=== PATIENT | male | born 1955 | race African-American/Black ===

== ENCOUNTER 2018-01-26 15:45 | Emergency (ER) | END 2018-01-26 21:25 | disposition home or self-care (01) ==

== ENCOUNTER 2018-06-17 06:51 | Emergency (ER) | payer OTHER ==
[~2018-06-17] VITALS: Ht 177.8 cm; Wt 95.0 kg
[~2018-06-17 06:51] MED LIST: AMLO-147 PO; ASPI-817 PO; ATOR40TA68 PO; BRIM10DR10 BOTH EYES; CYCL10TA7 PO; DIPH25CA6 PO; DOCU100C59 PO; FAMO20TA18 PO; GLYB5TAB3 PO; ISOS30TA67 PO; LATA2.5D2 BOTH EYES; METO-448 PO; MTF1000T PO; TIMO5DRO30 BOTH EYES; TML25OP5 BOTH EYES
[2018-06-17 06:55] VITALS: Ht 177.8 cm; Wt 95.0 kg
[2018-06-17] MEDS ORDERED: SOD CHLORIDE 0.9% 1,000 ML IV STA (06:58)
[2018-06-17] MEDS ORDERED: DEXTROSE 50% 50 ML SYRINGE IV STA (06:58)
--- NOTE | 2018-06-17 07:07 | ERD ---
ER Documentation Chief Complaint Chief Complaint BIB RA FOR EVAL OF SYNCOPAL EPISODE AT HOME, C/O BACK PAIN. PT A&OX4 HPI 63-year-old man had a hypoglycemic episode at home and fainted while walking to the bathroom he states he struck the back of his head although there was no bleeding or skin breakdown. He denies paresis or paresthesias, no chest pain or shortness of breath. Patient has a long history of chronic back pain and opioid dependence and is requesting analgesics. His blood sugar was low at the field but mental status was near baseline and he was transported here without further complications. Patient denies chest pain or shortness of breath, no abdominal pain, no headache or blurry vision. ROS All systems reviewed and are negative except as per history of present illness. Medications Home Meds Reported Medications Trazodone Hcl* (Trazodone Hcl*) 100 Mg Tablet, 100 MG PO QHS, #30 TAB 06/17/18 Docusate Sodium (Col-Rite) 100 Mg Capsule, 100 MG PO BID, CAP 01/26/18 Diphenhydramine Hcl* (Diphenhydramine Hcl*) 25 Mg Capsule, 50 MG PO QHS PRN for ITCHING, CAP 01/26/18 Famotidine* (Famotidine*) 20 Mg Tablet, 40 MG PO QHS, #30 TAB 01/26/18 Cyclobenzaprine Hcl* (Cyclobenzaprine Hcl*) 10 Mg Tablet, 10 MG PO Q8, #60 TAB 01/26/18 Amlodipine Besylate* (Amlodipine Besylate*) 10 Mg Tablet, 10 MG PO DAILY, #30 TAB 01/26/18 Atorvastatin* (Atorvastatin*) 40 Mg Tablet, 40 MG PO QHS, #30 TAB 01/26/18 Metformin* (Glucophage*) 1,000 Mg Tablet, 1000 MG PO WITH BREAKFAST DINNE, #60 TAB 01/26/18 Metoprolol Tartrate* (Lopressor*) 25 Mg Tab, 25 MG PO Q12H, #60 TAB 01/26/18 Glyburide* (Glyburide*) 5 Mg Tablet, 5 MG PO WITH BREAKFAST DINNE, #60 TAB 01/26/18 Isosorbide Mononitrate* (Isosorbide Mononitrate*) 30 Mg Tab.er.24h, 30 MG PO DAILY, TAB 01/26/18 Aspirin* (Aspirin* EC) 81 Mg Tablet.dr, 81 MG PO DAILY, TAB 01/26/18 Timolol Maleate* (Timoptic*) 0.5%-5ml Opht, 1 DROP BOTH EYES BID, #1 EA 01/26/18 Brimonidine Tartrate* (Brimonidine Tartrate*) 0.15%-10ML Drop Opht, 1 DROP BOTH EYES BID, #1 EA 01/26/18 Latanoprost (Latanoprost) 2.5 Ml Drops, 1 DROP BOTH EYES QHS, #1 BOTTLE 01/26/18 Discontinued Reported Medications Timolol Maleate* (Timoptic*) 0.25%-5ml Opht, 1 DROP BOTH EYES BID, #1 EA 01/26/18 Allergies Allergies: Coded Allergies: No Known Allergy (Unverified , 06/17/18) PMhx/Soc Diabetes mellitus, hypertension, hepatitis C, retinopathy, chronic back pain Hx Cardiac Disorders: Yes (HTN) Hx Miscellaneous Medical Probl: Yes (DM, CHRONIC PAIN, BACK INJURY, GLAUCOMA, W/C BOUND) Hx Alcohol Use: Yes Hx Substance Use: Yes (marijuana) Hx Tobacco Use: No FmHx Family History: diabetes Physical Exam Vitals Vital Signs Date Temp Pulse Resp B/P (MAP) Pulse Ox O2 O2 Flow FiO2 Time Delivery Rate 06/17/18 88 18 133/78 98 Room Air 09:43 (96) 06/17/18 96.5 95 17 135/70 99 06:55 (91) Physical Exam GENERAL: Well-developed, well-nourished, well-hydrated, in no apparent distress, looks nontoxic in appearance HEENT: Moist mucous membranes, pink conjunctiva, no cervical spine tenderness or step-off deformities, no goiter, no jaundice or icterus, extraocular movements intact without pain. No submandibular induration, and no pharyngeal erythema NEURO: Alert and oriented 3, cranial nerves II through XII intact bilaterally, pupils equal round reactive to light, no focal deficits or facial asymmetry, sensation intact distally Strength 5/5 in upper and lower extremities bilaterally CARDIAC: Regular rate and rhythm, no murmurs rubs or gallops LUNGS: Clear bilaterally no wheezing crackles or stridor ABDOMEN: Soft nontender, no guarding, no rigidity, no rebound, no psoas sign no obturator sign. Normoactive bowel sounds SKIN: Warm and dry to touch, no abrasions, contusions, or hematomas, no lacerations, no ecchymosis, no target lesions, and without ulcers EXTREMITIES: No clubbing cyanosis or edema, calves are bilaterally symmetrical, no Homans sign, no popliteal cord sign. Distal pulses equal and bilateral PSYCH: Normal affect without agitation or irritability Result Diagram: 06/17/18 0746 06/17/18 0746 Results 24 hrs Laboratory Tests Test 06/17/18 07:03 06/17/18 07:16 06/17/18 07:33 06/17/18 07:46 Bedside Glucose 41 mg/dL 40 mg/dL 155 mg/dL White Blood Count 6.0 10^3/ul Red Blood Count 4.86 10^6/ul Hemoglobin 13.5 g/dl Hematocrit 42.3 % Mean Corpuscular 87.0 fl Volume Mean Corpuscular 27.8 pg Hemoglobin Mean Corpuscular 31.9 g/dl Hemoglobin Concent Red Cell 18.1 % Distribution Width Platelet Count 228 10^3/UL Mean Platelet 10.1 fl Volume Immature 0.500 % Granulocytes % Neutrophils % 62.7 % Lymphocytes % 18.7 % Monocytes % 17.1 % Eosinophils % 0.7 % Basophils % 0.3 % Nucleated Red Blood 0.0 /100WBC Cells % Immature 0.030 10^3/ul Granulocytes # Neutrophils # 3.8 10^3/ul Lymphocytes # 1.1 10^3/ul Monocytes # 1.0 10^3/ul Eosinophils # 0.0 10^3/ul Basophils # 0.0 10^3/ul Nucleated Red Blood 0.0 10^3/ul Cells # Sodium Level 141 mmol/L Potassium Level 5.0 mmol/L Chloride Level 109 mmol/L Carbon Dioxide 20 mmol/L Level Anion Gap 12 Blood Urea Nitrogen 33 mg/dl Creatinine 1.28 mg/dl Est Glomerular > 60 mL/min Filtrat Rate mL/min Glucose Level 191 mg/dl Calcium Level 10.2 mg/dl Total Bilirubin 0.0 mg/dl Direct Bilirubin 0.00 mg/dl Indirect Bilirubin 0.0 mg/dl Aspartate Amino 72 IU/L Transf (AST/SGOT) Alanine 67 IU/L Aminotransferase (A LT/SGPT) Alkaline 115 IU/L Phosphatase Troponin I < 0.012 ng/ml Total Protein 8.1 g/dl Albumin 4.4 g/dl Globulin 3.70 g/dl Albumin/Globulin 1.18 Ratio Lipase 319 U/L Current Medications Medications Dose Sig/Nicole Start Time Status Last (Trade) Ordered Route PRN Stop Time Admin Dose Reason Admin Sodium 1,000 ml @ Q1H STAT 06/17/18 DC 06/17/18 Chloride 1,000 mls/hr IV 06:58 07:21 06/17/18 07:57 Dextrose 50 ml ONCE STAT 06/17/18 DC 06/17/18 (D50w IV 06:58 07:20 Syringe) 06/17/18 07:05 Oxycodone/ 1 tab ONCE ONCE 06/17/18 DC 06/17/18 Acetaminophen PO 09:00 08:55 (Percocet 06/17/18 09:01 (5/ 325)) Ibuprofen 600 mg ONCE ONCE 06/17/18 06/17/18 (Motrin) PO 10:30 10:06 06/17/18 10:31 Procedures/MDM IV line was established patient was placed on potline monitor rhythm strip revealed a sinus rhythm at about 80 bpm with upright P and T waves. Patient was afebrile One AP view of the chest performed, read by me reveals no acute infiltrates, normal mediastinum, sharp costophrenic and cardiac borders, no air under the diaphragm. Otherwise unremarkable chest x-ray. EKG performed, read by me revealed a normal sinus rhythm at 80 bpm, normal axis, narrow QRS complex, no concerning ST elevations or depressions noted, T wave inversions in [address] scan of the brain was performed is negative for bleed mass or shift, please refer to radiologist dictation for full report Patient's blood sugar was about 40, I administered 500 mL normal saline IV, dextrose 25 g IV, and a breakfast tray. CBC was normal, electrolytes revealed dehydration with a BUN/creatinine of 33/1.3, liver function tests normal, troponin negative. Blood sugar was initially low although that was treated with IV dextrose and a meal. Patient felt much better and was rehydrated here in the ER. For complaints of back pain administered Percocet 1 tablet p.o. Differential diagnoses considered, included but not limited to acute coronary syndrome, pulmonary embolism, aortic dissection, abdominal aortic aneurysm, sepsis, stroke, meningitis, encephalitis, pneumonia, appendicitis, chol ecystitis, bowel obstruction, pyelonephritis, nephrolithiasis, cystitis, as well as metabolic, hematologic, and electrolyte abnormalities. As well as abscess, cellulitis, fractures, and dislocations. Patient feels much better at this time, and vital signs are normal, symptoms have improved. I did give strict instructions to return to the ED if symptoms continue or worsen, patient will otherwise follow-up with primary care physician. Patient understood instructions and agreed to plan. Disclaimer: Inadvertent spelling and grammatical errors are likely due to EHR/dictation software use and do not reflect on the overall quality of patient care. Also, please note that the electronic time recorded on this note does not necessarily reflect the actual time of the patient encounter. Departure Diagnosis: Primary Impression: Syncope Syncope type: unspecified Qualified Codes: R55 - Syncope and collapse Additional Impressions: Acute metabolic encephalopathy due to hypoglycemia Back pain Back pain location: low back pain Chronicity: acute Back pain laterality: bilateral Sciatica presence: without sciatica Qualified Codes: M54.5 - Low back pain Dehydration Condition: Good AVELINO PRITCHETT MD Jun 17, 2018 07:07
[2018-06-17] MEDS ORDERED: TRA100 PO (08:35)
[2018-06-17] MEDS ORDERED: OXYCODONE/ACETAMINOPHEN (5/325) TAB PO ONE (09:00)
[2018-06-17 09:43] VITALS: BP 133/78; PULSE 88; RESP 18
[2018-06-17] MEDS ORDERED: IBUPROFEN 600 MG TAB PO ONE (10:30)
== END 2018-06-17 11:10 | disposition home or self-care (01) ==
LOC: E/R 06:51
DX: G93.41 Metabolic encephalopathy (principal); M54.5 Low back pain; E86.0 Dehydration; E11.649 Type 2 diabetes mellitus with hypoglycemia without coma; I10 Essential (primary) hypertension; Z79.82 Long term (current) use of aspirin; Z79.84 Long term (current) use of oral hypoglycemic drugs
CPT/HCPCS: 36415; 70450; 71045; 80053; 82962; 83690; 84484; 85025; 93005; 96374; J7030; Z7502; Z7610

== ENCOUNTER 2018-11-04 15:12 | Inpatient (IN) | payer OTHER ==
[~2018-11-04] VITALS: Ht 170.2 cm; Wt 86.7 kg
[~2018-11-04 15:12] MED LIST changes: +DIPH25CA42 PO; +DOCU-144 PO; +HYDR-3980 PO; +MED4DP PO; +METF-849 PO; +METF100010 PO; +TIMO15DR15 BOTH EYES; -TML25OP5 BOTH EYES; +TRA100 PO; +TRAZ-149 PO
[2018-11-04] MEDS ORDERED: SOD CHLORIDE 0.9% 1,000 ML IV ONE (15:30)
--- NOTE | 2018-11-04 17:36 | ERD ---
ER Documentation Chief Complaint Chief Complaint shaking and twitching at home, alert and oriented x 4 HPI 63-year-old male presents by paramedics after passing out. Patient states he was in his usual state of health until just prior to arrival which time he had a syncopal episode. He was feeling "shaky" and then passed out. He had a brief loss of consciousness. It is unclear if he had seizure activity as nobody was around to witness it. He reported no chest pain or palpitations prior to the event. He reported no headache or focal weakness prior to the event. I have reviewed the [facility] inspector pre-hospital care. Pre-hospital vital signs were reviewed. Pre-hospital diagnostic tests were reviewed. Upon arrival, patient is asymptomatic. He states that he was just recently in a convalescent facility/long-term care facility for IV antibiotics for a back infection all of which she just finished. He reports no new back pain or any other complaints regarding back or other acute neurologic complaints. ROS All systems reviewed and are negative except as per history of present illness. Medications Home Meds Reported Medications Cyclobenzaprine Hcl* (Cyclobenzaprine Hcl*) 10 Mg Tablet, 10 MG PO Q8, #60 TAB 11/04/18 Diphenhydramine Hcl (Banophen) 25 Mg Capsule, 25 MG PO DAILY, CAP 11/04/18 Atorvastatin* (Atorvastatin*) 40 Mg Tablet, 40 MG PO QHS, #30 TAB 11/04/18 Aspirin* (Aspirin* EC) 81 Mg Tablet.dr, 81 MG PO DAILY, TAB 11/04/18 Hydrocodone/Acetaminophen ([place] 10-325 Tablet) 1 Each Tablet, 1 EACH PO Q8H PRN for NEEDED, TAB 11/04/18 Brimonidine Tartrate* (Brimonidine Tartrate*) 0.15%-10ML Drop Opht, 1 DROP BOTH EYES Q8, #1 EA 11/04/18 Trazodone Hcl* (Desyrel*) 50 Mg Tab, 50 MG PO BID, #60 TAB 11/04/18 Metformin Hcl* (Metformin Hcl*) 1,000 Mg Tablet, 1000 MG PO WITH BREAKFAST DINNE, #60 TAB 11/04/18 Latanoprost (Latanoprost) 2.5 Ml Drops, 1 DROP BOTH EYES QHS, #1 BOTTLE 11/04/18 Isosorbide Mononitrate* (Isosorbide Mononitrate*) 30 Mg Tab.er.24h, 30 MG PO DAILY, TAB 11/04/18 Amlodipine Besylate* (Amlodipine Besylate*) 10 Mg Tablet, 10 MG PO DAILY, #30 TAB 11/04/18 Famotidine* (Famotidine*) 20 Mg Tablet, 20 MG PO BID, #60 TAB 11/04/18 Timolol Maleate* (Timolol Maleate* Ophth) 0.25%-15ml Opht, 1 DROP BOTH EYES BID, #1 EA 11/04/18 Docusate Sodium* (Colace*) 100 Mg Capsule, 100 MG PO BID, #60 CAP 11/04/18 Glyburide* (Glyburide*) 5 Mg Tablet, 5 MG PO BID, #60 TAB 11/04/18 Discontinued Reported Medications Trazodone Hcl* (Trazodone Hcl*) 100 Mg Tablet, 100 MG PO QHS, #30 TAB 06/17/18 Docusate Sodium (Col-Rite) 100 Mg Capsule, 100 MG PO BID, CAP 01/26/18 Diphenhydramine Hcl* (Diphenhydramine Hcl*) 25 Mg Capsule, 50 MG PO QHS PRN for ITCHING, CAP 01/26/18 Famotidine* (Famotidine*) 20 Mg Tablet, 40 MG PO QHS, #30 TAB 01/26/18 Cyclobenzaprine Hcl* (Cyclobenzaprine Hcl*) 10 Mg Tablet, 10 MG PO Q8, #60 TAB 01/26/18 Amlodipine Besylate* (Amlodipine Besylate*) 10 Mg Tablet, 10 MG PO DAILY, #30 TAB 01/26/18 Atorvastatin* (Atorvastatin*) 40 Mg Tablet, 40 MG PO QHS, #30 TAB 01/26/18 Metformin* (Glucophage*) 1,000 Mg Tablet, 1000 MG PO WITH BREAKFAST DINNE, #60 TAB 01/26/18 Metoprolol Tartrate* (Lopressor*) 25 Mg Tab, 25 MG PO Q12H, #60 TAB 01/26/18 Glyburide* (Glyburide*) 5 Mg Tablet, 5 MG PO WITH BREAKFAST DINNE, #60 TAB 01/26/18 Isosorbide Mononitrate* (Isosorbide Mononitrate*) 30 Mg Tab.er.24h, 30 MG PO DAILY, TAB 01/26/18 Aspirin* (Aspirin* EC) 81 Mg Tablet.dr, 81 MG PO DAILY, TAB 01/26/18 Timolol Maleate* (Timoptic*) 0.5%-5ml Opht, 1 DROP BOTH EYES BID, #1 EA 01/26/18 Brimonidine Tartrate* (Brimonidine Tartrate*) 0.15%-10ML Drop Opht, 1 DROP BOTH EYES BID, #1 EA 01/26/18 Latanoprost (Latanoprost) 2.5 Ml Drops, 1 DROP BOTH EYES QHS, #1 BOTTLE 01/26/18 Allergies Allergies: Coded Allergies: No Known Allergy (Unverified , 11/04/18) PMhx/Soc History of Surgery: No Anesthesia Reaction: No Hx Neurological Disorder: No Hx Respiratory Disorders: No Hx Cardiac Disorders: Yes (HTN) Hx Psychiatric Problems: No Hx Miscellaneous Medical Probl: Yes (DM, CHRONIC PAIN, BACK INJURY, GLAUCOMA, W/C BOUND, HEP C) Hx Alcohol Use: Yes Hx Substance Use: Yes (marijuana) Hx Tobacco Use: No Smoking Status: Never smoker FmHx Noncontributory for chief complaint Physical Exam Vitals Vital Signs Date Temp Pulse Resp B/P (MAP) Pulse Ox O2 O2 Flow FiO2 Time Delivery Rate 11/04/18 74 18 133/55 93 Room Air 17:05 (81) 11/04/18 98.0 87 24 100/57 96 15:20 (71) Physical Exam GENERAL: The patient is well developed and appropriate for usual state of health in no apparent distress HEENT: Pupils equal, round, and reactive to light. EOMI. There is no scleral icterus. NECK: C-spine is soft and supple, there is no meningismus. There is no cervical lymphadenopathy. LUNGS: Clear to auscultation bilaterally. There are no rales, wheezes or rhonchi. HEART: Regular rate and rhythm, no murmurs, clicks, rubs or gallops. ABDOMEN: Soft, non-tender, non-distended. There are bowel sounds in all four quadrants. No rebound or guarding. EXTREMITIES: There is no peripheral cyanosis or edema. No focal swelling or erythema. NEURO: The patient moves all four extremities with 5/5 strength. Cranial nerves II - XII are intact. Normal gait. Alert and oriented SKIN: There is no apparent rash or petechiae. HEME/LYMPHATIC: There is no evidence of excessive bruising or lymphedema. PSYCHIATRIC: The patient does not appear anxious or depressed. Result Diagram: 11/04/18 1531 11/04/18 1531 Results 24 hrs Laboratory Tests Test 11/04/18 15:31 White Blood Count 8.9 10^3/ul Red Blood Count 4.17 10^6/ul Hemoglobin 11.1 g/dl Hematocrit 35.6 % Mean Corpuscular Volume 85.4 fl Mean Corpuscular Hemoglobin 26.6 pg Mean Corpuscular Hemoglobin Concent 31.2 g/dl Red Cell Distribution Width 14.0 % Platelet Count 267 10^3/UL Mean Platelet Volume 9.6 fl Immature Granulocytes % 0.500 % Neutrophils % 66.7 % Lymphocytes % 17.4 % Monocytes % 12.8 % Eosinophils % 2.4 % Basophils % 0.2 % Nucleated Red Blood Cells % 0.0 /100WBC Immature Granulocytes # 0.040 10^3/ul Neutrophils # 5.9 10^3/ul Lymphocytes # 1.5 10^3/ul Monocytes # 1.1 10^3/ul Eosinophils # 0.2 10^3/ul Basophils # 0.0 10^3/ul Nucleated Red Blood Cells # 0.0 10^3/ul Sodium Level 140 mmol/L Potassium Level 3.3 mmol/L Chloride Level 102 mmol/L Carbon Dioxide Level 23 mmol/L Anion Gap 15 Blood Urea Nitrogen 18 mg/dl Creatinine 1.45 mg/dl Est Glomerular Filtrat Rate mL/min 59 mL/min Glucose Level 123 mg/dl Calcium Level 9.6 mg/dl Troponin I 0.039 ng/ml Current Medications Medications Dose Sig/Nicole Start Time Status Last (Trade) Ordered Route PRN Stop Time Admin Dose Reason Admin Sodium 1,000 ml @ Q1H ONCE 11/04/18 DC 11/04/18 Chloride 1,000 mls/hr IV 15:30 15:41 11/04/18 16:29 Procedures/MDM Patient was taken to a room, seen and evaluated. Comfort measures were initiated. Diagnostic tests were ordered and reviewed. 3 LEAD RHYTHM STRIP: Normal sinus rhythm without ectopy EK lead EKG reviewed by myself: Normal Sinus Rhythm LVH No ST elevation, depression, or T wave inversion, nonspecific ST and T wave changes Impression: Nonspecific abnormal EKG RADIOLOGY: Reviewed with the radiologist CONSULTATION: Hospitalist was notified for admission REEVALUATION: 1730: Diagnostic tests were appreciated. Patient remained hemodynamic is stable and neurologically normal MEDICAL DECISION MAKING: Patient presents after a syncopal episode. Differential diagnosis considered focused on cardiac, neurologic, thromboembolic and other significant concerns for syncope. Diagnostic workup was appreciated. My suspicion is that this likely has more to do with his medications and anything else. However, he has a significant the abnormal EKG with significant risk factors including diabetes. I cannot completely rule out cardiogenic syncope and will therefore admit for observation to monitor his rhythm Departure Diagnosis: Primary Impression: Syncope Condition: KHADRA Coates Nov 04, 2018 17:36
[2018-11-04] MEDS ORDERED: SOD CHLORIDE 0.9% 1,000 ML IV SCH (18:16)
[2018-11-04] MEDS ORDERED: ONDANSETRON 4 MG INJ IV PRN ×2 (18:30)
[2018-11-04] MEDS ORDERED: ACETAMINOPHEN 325 MG TAB PO PRN ×2 (18:30)
[2018-11-04] MEDS ORDERED: NACL 0.9% 3 ML SYG IV SCH (18:30)
[2018-11-04] MEDS ORDERED: POTASSIUM CHLORIDE 20 MEQ POWDER FOR ORAL SOLN PO ONE (18:30)
[2018-11-04] MEDS ORDERED: LORAZEPAM 2 MG INJ IV PRN (18:30)
[2018-11-04] MEDS ORDERED: OXYCODONE/ACETAMINOPHEN (5/325) TAB PO PRN (18:30)
--- NOTE | 2018-11-04 18:57 | HP ---
Date/Time of Note Date/Time of Note DATE: 11/04/18 TIME: 18:57 Assessment/Plan VTE Prophylaxis Pharmacological prophylaxis: other Lines/Catheters IV Catheter Type (from Nrsg): Saline Lock Assessment/Plan Hospital Course Patient is a -[place] male with a past medical history significant for recent osteomyelitis of the back status post 6 weeks of IV antibiotics, chronic feet pain from a fall couple years back, chronic back pain from the same fall, hypertension, glaucoma, hepatitis C that is untreated, dyslipidemia, diabetes mellitus and questionable history of TIA versus CVA who presents to [facility] after his neighbor at his assisted living facility found him questionably shaking and passed out. According to the patient the last thing he remembers was feeling well in his wheelchair which he is bound to due to his chronic foot pain, and about 2 go out and get something to eat, next thing he remembers his friend his shaking him awake. Per EMS the friend stated that patient was passed out and also shaking. However this story is not necessarily 100% reliable. Currently patient feels well and has no other comp laints. Patient denies chest pain, shortness of breath, headache, nausea, vomiting, abdominal pain, bowel or bladder dysfunction, leg pain. Patient does state he has chronic back pain as well as chronic foot pain. Of note patient states that he urinates at the time that he had a syncopal episode was a few months ago when he was sent to the ER after being found to be hypoglycemic. Objective Physical exam General: Patient is laying in bed and answers questions appropriately Mentation: Patient is alert and oriented 4, Head: Normocephalic atraumatic Eyes: EOMI, pupils reactive to light Neck: Supple, nontender, midline Respiratory: Clear to auscultation bilaterally Cardiovascular: regular rate, no obvious murmurs Gastrointestinal: non-tender to palpation, bowel sounds heard. Neurological: Moves all extremities spontaneously Skin: No new skin lesions Musculoskeletal: Pain on palpation of feet bilaterally Assessment and plan Syncope -Unknown cause, patient had a one-time occurrence of syncope in the past due to hypoglycemia, patient is on sulfonylurea however his glucose is within normal limits here. -Patient may be volume depleted, IV hydration -Urine drug screen and UA pending -Neurology consulted, -MRI, echo, carotid ultrasound ordered -CT noted -Orthostatic vitals however will be limited as patient cannot stand Questionable seizure -Patient was passed out and bystander did say that he was shaking however this is questionable if true seizure versus another phenomenon such as convulsive syncope -Neurology consulted -We will start empirically on Keppra, -Ativan as needed Recent lower extremity swelling -Patient has chronic foot pain and stated that recently he had both legs swell up, no history of DVT -Ultrasound venous bilaterally pending Acute kidney injury versus chronic kidney disease -We will hydrate, if continues to be elevated will consult nephrology in the a.m. Recent history of osteomyelitis -Patient states that he had a bone infection in the back and recently finished 6 weeks of IV antibiotics at a senior care, he was discharged 2 days ago Hypertension -Continue home meds Questionable coronary artery disease -Continue baby aspirin as well as other home medications Glaucoma -Continue home drops Active hepatitis C -Untreated, will get hepatitis levels Chronic debility -Patient had a fall from a ladder a couple years ago which is the cause of his chronic back pain as well as chronic foot pain -Wheelchair-bound Anemia -Mild, monitor for now Disposition -We will perform syncope work-up and seizure work-up per neurology recommendations -It appears patient will need placement as he presented to the ER just 2 days after he was discharged from half-way facility Result Diagram: 11/04/18 1531 11/04/18 1531 Results 24hrs Laboratory Tests Test 11/04/18 15:31 White Blood Count 8.9 # Red Blood Count 4.17 L Hemoglobin 11.1 L Hematocrit 35.6 L Mean Corpuscular Volume 85.4 Mean Corpuscular Hemoglobin 26.6 L Mean Corpuscular Hemoglobin Concent 31.2 L Red Cell Distribution Width 14.0 # Platelet Count 267 Mean Platelet Volume 9.6 Immature Granulocytes % 0.500 H Neutrophils % 66.7 Lymphocytes % 17.4 Monocytes % 12.8 H Eosinophils % 2.4 Basophils % 0.2 Nucleated Red Blood Cells % 0.0 Immature Granulocytes # 0.040 H Neutrophils # 5.9 Lymphocytes # 1.5 Monocytes # 1.1 H Eosinophils # 0.2 Basophils # 0.0 Nucleated Red Blood Cells # 0.0 Sodium Level 140 Potassium Level 3.3 L Chloride Level 102 Carbon Dioxide Level 23 Anion Gap 15 H Blood Urea Nitrogen 18 Creatinine 1.45 H Est Glomerular Filtrat Rate mL/min 59 L Glucose Level 123 Calcium Level 9.6 Troponin I 0.039 HPI/ROS Admit Date/Time Admit Date/Time PMH/Family/Social Past Medical History Medications Current Medications Ondansetron HCl (Zofran Inj) 4 mg ER BRIDGE PRN IV NAUSEA/VOMITING; Start 11/04/18 at 18:30; Stop 11/05/18 at 18:29 Acetaminophen (Tylenol Tab) 650 mg ER BRIDGE PRN PO .MILD PAIN 1-3 OR TEMP; Start 11/04/18 at 18:30; Stop 11/05/18 at 18:29 Amlodipine Besylate (Norvasc) 10 mg DAILY PO ; Start 11/05/18 at 09:00; Status UNV Aspirin (Halfprin) 81 mg DAILY PO ; Start 11/05/18 at 09:00 Atorvastatin Calcium (Lipitor) 40 mg QHS PO ; Start 11/04/18 at 21:00 Brimonidine Tartrate (Alphagan P 0.15%) 1 drop Q8 BOTH EYES ; Start 11/04/18 at 22:00; Status UNV Cyclobenzaprine HCl (Flexeril) 10 mg Q8 PO ; Start 11/04/18 at 22:00 Docusate Sodium (Colace) 100 mg BID PO ; Start 11/04/18 at 21:00 Famotidine (Pepcid) 20 mg BID PO ; Start 11/04/18 at 21:00 Isosorbide Mononitrate (Imdur) 30 mg DAILY PO ; Start 11/05/18 at 09:00; Status UNV Latanoprost (Xalatan) 1 drop QHS BOTH EYES ; Start 11/04/18 at 21:00; Status UNV Timolol Maleate (Timoptic 0.25%) 1 drop BID BOTH EYES ; Start 11/04/18 at 21:00; Status UNV Trazodone HCl (Desyrel) 50 mg BID PO ; Start 11/04/18 at 21:00; Status UNV Sodium Chloride 1,000 ml @ 50 mls/hr Q20H IV ; Start 11/04/18 at 18:16; Status UNV IV Flush (NS 3 ml) 3 ml PER PROTOCOL IV ; Start 11/04/18 at 18:30; Status UNV Ondansetron HCl (Zofran Inj) 4 mg Q6H PRN IV NAUSEA/VOMITING; Start 11/04/18 at 18:30; Status UNV Acetaminophen (Tylenol Tab) 650 mg Q6H PRN PO .PAIN 1-3 OR TEMP; Start 11/04/18 at 18:30 Lorazepam (Ativan) 2 mg Q10MIN PRN IV seizures; Start 11/04/18 at 18:30; Status UNV Miscellaneous Information (* Miscellaneous Pharmacy Order) Discontinue current oral sulfonylur... ONCE ONCE XX ; Start 11/04/18 at 19:00; Stop 11/04/18 at 19:01; Status UNV Diagnostic Test (Pha) (Accu-Chek) 1 ea 02 XX ; Start 11/05/18 at 02:00; Status UNV Miscellaneous Information (* Miscellaneous Pharmacy Order) HYPOGLYCEMIA PROTOCOL w... ONCE ONCE XX ; Start 11/04/18 at 19:00; Stop 11/04/18 at 19:01; Status UNV Insulin Aspart (Novolog Insulin Pen) NOVOLOG *MILD* ALGORITHM WITH MEALS BEDTIME SC ; Start 11/04/18 at 21:00; Status UNV Miscellaneous Information (* Miscellaneous Pharmacy Order) Discontinue all previ... ONCE ONCE XX ; Start 11/04/18 at 19:00; Stop 11/04/18 at 19:01; Status UNV Acetaminophen/ Hydrocodone Bitart ([place] (10/325)) 1 tab Q4H PRN PO MODERATE PAIN LEVEL 4-6; Start 11/04/18 at 19:00; Status UNV Coded Allergies: No Known Allergy (Unverified , 11/04/18) Social History Smoking Status: Never smoker Exam/Review of Systems Vital Signs Vitals Vital Signs Date Temp Pulse Resp B/P (MAP) Pulse Ox O2 O2 Flow FiO2 Time Delivery Rate 11/04/18 74 18 133/55 93 Room Air 17:05 (81) 11/04/18 98.0 15:20 AVELINO HINTON Nov 04, 2018 18:57
[2018-11-04] MEDS ORDERED: GLUCOSE GEL 15 GRAM TUBE PO PRN ×2 (19:00)
[2018-11-04] MEDS ORDERED: GLUCOSE GEL 15 GRAM TUBE BUCCAL PRN (19:00)
[2018-11-04] MEDS ORDERED: DEXTROSE 50% 50 ML SYRINGE IV PRN ×2 (19:00)
[2018-11-04] MEDS ORDERED: GLUCAGON 1 MG INJ IM PRN (19:00)
[2018-11-04] MEDS: HYDROCODONE/APAP (10/325) TAB PO PRN (19:07)
[2018-11-04] MEDS: INSULIN ASPART [NOVOLOG] 3 ML PEN SC SCH (21:00)
[2018-11-04] MEDS: LEVETIRACETAM 500 MG (PMX) 100 ML IVPB SCH (22:39)
[2018-11-04] MEDS: BRIMONIDINE 0.15% 5 ML OPH BOTH EYES SCH (22:40)
[2018-11-04] MEDS: TIMOLOL 0.25% 5 ML OPH BOTH EYES SCH (22:40)
[2018-11-04] MEDS: LATANOPROST 0.005% 2.5 ML OPH BOTH EYES SCH (22:40)
[2018-11-04] MEDS: DOCUSATE SODIUM 100 MG CAP PO SCH (22:44)
[2018-11-04] MEDS: FAMOTIDINE 20 MG TAB PO SCH (22:45)
[2018-11-04] MEDS: CYCLOBENZAPRINE 10 MG TAB PO SCH (22:45)
[2018-11-04] MEDS: ATORVASTATIN 40 MG TAB PO SCH (22:45)
[2018-11-04] MEDS: traZODone 50 MG TAB PO SCH (22:47)
[2018-11-04 23:30] VITALS: Ht 170.2 cm; Wt 86.7 kg
[2018-11-05] VITALS (7 sets, daily range): BP systolic 128–170; BP diastolic 67–81; PULSE 70–92; RESP 18–20
[2018-11-05] MEDS: HYDROCODONE/APAP (10/325) TAB PO PRN ×3 (00:11→21:02)
[2018-11-05] MEDS: AMLODIPINE 10 MG TAB PO SCH ×2 (00:14→08:23)
[2018-11-05] MEDS: ACCU-CHEK XX SCH (02:42)
[2018-11-05] MEDS: BRIMONIDINE 0.15% 5 ML OPH BOTH EYES SCH ×3 (05:08→21:02)
[2018-11-05] MEDS: CYCLOBENZAPRINE 10 MG TAB PO SCH ×3 (05:08→21:01)
[2018-11-05] MEDS: INSULIN ASPART [NOVOLOG] 3 ML PEN SC SCH ×4 (07:46→20:51)
[2018-11-05] MEDS: DOCUSATE SODIUM 100 MG CAP PO SCH ×2 (08:22→20:52)
[2018-11-05] MEDS: ASPIRIN (EC) 81 MG TAB PO SCH (08:22)
[2018-11-05] MEDS: ISOSORBIDE MONONITRATE(SR)30 MG TAB PO SCH (08:22)
[2018-11-05] MEDS: traZODone 50 MG TAB PO SCH ×2 (08:23→20:52)
[2018-11-05] MEDS: FAMOTIDINE 20 MG TAB PO SCH ×2 (08:23→20:52)
[2018-11-05] MEDS: TIMOLOL 0.25% 5 ML OPH BOTH EYES SCH ×2 (08:24→20:52)
[2018-11-05] MEDS ORDERED: AMLODIPINE 10 MG TAB PO SCH (09:00)
[2018-11-05] MEDS: LEVETIRACETAM 500 MG (PMX) 100 ML IVPB SCH (09:44)
--- NOTE | 2018-11-05 10:11 | CONSI ---
Assessment/Plan Assessment/Plan Assessment/Plan (Recall) 63 M c/ multiple comorbidities, who presents for evaluation of LOC w/ ? shaking c/f seizure.. MIKE + on presentation Convulsive syncope is a consideration.. Epilepsy is less likely. MRI brain is reassuringly negative for acute intracranial pathology, or prior cortically based stroke.. P: Await EEG Hold Keppra for now Ativan iv prn prolonged seizure or cluster Add phos level Agree w/ asa/lipitor daily for secondary stroke prevention PT/OT as necessary Other medical management and supportive care per primary Will follow clinically Consultation Date/Type/Reason Admit Date/Time Type of Consult Neurology Reason for Consultation ? seizure Requesting Provider: AVELINO HINTON Date/Time of Note DATE: 11/05/18 TIME: 10:04 Hx of Present Illness Patient is a 63 yo male with a past medical history significant for recent osteomyelitis of the back status post 6 weeks of IV antibiotics, chronic feet pain from a fall couple years back, chronic back pain from the same fall, hypertension, glaucoma, hepatitis C that is untreated, dyslipidemia, diabetes mellitus and questionable history of TIA versus CVA who presents to [facility] after his neighbor at his assisted living facility found him questionably shaking and passed out. According to the patient the last thing he remembers was feeling well in his wheelchair which he is bound to due to his chronic foot pain, and about 2 go out and get something to eat, next thing he remembers his friend his shaking him awake. Per EMS the friend stated that patient was passed out and also shaking. However this story is not necessarily 100% reliable. Currently patient feels well and has no other complaints. Patient denies chest pain, shortness of breath, headache, nausea, vomiting, abdominal pain, bowel or bladder dysfunction, leg pain. Patient does state he has chronic back pain as well as chronic foot pain. Of note patient states that he urinates at the time that he had a syncopal episode was a few months ago when he was sent to the ER after being found to be hypoglycemic. per HPI Objective Exam Vitals Vital Signs Date Temp Pulse Resp B/P (MAP) Pulse Ox O2 O2 Flow FiO2 Time Delivery Rate 11/05/18 98.6 71 20 158/80 96 Room Air 07:26 (106) Intake and Output 11/04/18 11/04/18 11/05/18 1515:00 23:00 07:00 IntakeIntake Total 725 ml OutputOutput Total 850 ml BalanceBalance -125 ml Exam PE: Gen Appearance: No Apparent Distress HEENT: Normocephalic Cardiovascular: Regular rate Lungs: Clear bilaterally Abdomen: Soft Extremities: Dry NE: The patient was alert and oriented. Language was normal. Fund of knowledge was normal. Pupils were equal and reactive to light. There was no afferent pupillary defect. Visual jean were normal. Funduscopic examination was limited. Extra-ocular movements were full. Ptosis was absent. There was no nystagmus. Facial sensation was normal. Face was symmetric with normal strength. Hearing was intact. Palate movements were normal. Neck strength was normal. There was normal tongue bulk and speed of movement. Tone was normal. Muscle bulk was normal. I did not see fasciculations. Arms were strong. Legs were somewhat effort limited. Vibration sensation was reduced distally. Temperature and pinprick sensation was normal. Rapid alternating movements were normal. There was no dysmetria. There was no intention tremor. Gait was deferred due to bedrest. Arm and leg reflexes were symmetric. Torres's sign was absent. Plantar responses were flexor. Results Result Diagram: 11/05/18 0551 11/05/18 0551 Results 24hrs Laboratory Tests Test 11/04/18 15:31 11/04/18 22:03 11/04/18 22:49 11/05/18 02:25 White Blood Count 8.9 # Red Blood Count 4.17 L Hemoglobin 11.1 L Hematocrit 35.6 L Mean Corpuscular 85.4 Volume Mean Corpuscular 26.6 L Hemoglobin Mean Corpuscular 31.2 L Hemoglobin Concen t Red Cell 14.0 # Distribution Width Platelet Count 267 Mean Platelet 9.6 Volume Immature 0.500 H Granulocytes % Neutrophils % 66.7 Lymphocytes % 17.4 Monocytes % 12.8 H Eosinophils % 2.4 Basophils % 0.2 Nucleated Red 0.0 Blood Cells % Immature 0.040 H Granulocytes # Neutrophils # 5.9 Lymphocytes # 1.5 Monocytes # 1.1 H Eosinophils # 0.2 Basophils # 0.0 Nucleated Red 0.0 Blood Cells # Sodium Level 140 Potassium Level 3.3 L Chloride Level 102 Carbon Dioxide 23 Level Anion Gap 15 H Blood Urea 18 Nitrogen Creatinine 1.45 H Est Glomerular 59 L Filtrat Rate mL/min Glucose Level 123 Calcium Level 9.6 Troponin I 0.039 Hepatitis B NEGATIVE Surface Antigen Hepatitis B Core REACTIVE H Total Antibody Hepatitis C REACTIVE H Antibody Urine Color YELLOW Urine Clarity SLIGHTLY CLOUDY A Urine pH 6.0 Urine Specific 1.020 [place] Urine Ketones 1+ H Urine Nitrite NEGATIVE Urine Bilirubin NEGATIVE Urine NEGATIVE Urobilinogen Urine Leukocyte NEGATIVE Esterase Urine Microscopic 1 RBC Urine Microscopic 4 WBC Urine Mucus MODERATE Urine Hemoglobin NEGATIVE Urine Glucose NEGATIVE Urine Total 2+ H Protein Urine Opiates Positive Screen Urine Negative Barbiturates Urine Negative Amphetamines Screen Urine Negative Benzodiazepines Screen Urine Cocaine Negative Screen Urine Negative Cannabinoids Bedside Glucose 90 121 Test 11/05/18 05:51 11/05/18 07:38 White Blood Count 6.5 # Red Blood Count 4.00 L Hemoglobin 10.5 L Hematocrit 34.1 L Mean Corpuscular 85.3 Volume Mean Corpuscular 26.3 L Hemoglobin Mean Corpuscular 30.8 L Hemoglobin Concen t Red Cell 14.0 Distribution Width Platelet Count 234 Mean Platelet 9.8 Volume Immature 0.300 Granulocytes % Neutrophils % 63.5 Lymphocytes % 17.1 Monocytes % 15.7 H Eosinophils % 3.1 Basophils % 0.3 Nucleated Red 0.0 Blood Cells % Immature 0.020 Granulocytes # Neutrophils # 4.1 Lymphocytes # 1.1 Monocytes # 1.0 H Eosinophils # 0.2 Basophils # 0.0 Nucleated Red 0.0 Blood Cells # Sodium Level 141 Potassium Level 3.4 L Chloride Level 104 Carbon Dioxide 25 Level Anion Gap 12 Blood Urea 20 Nitrogen Creatinine 1.13 Est Glomerular > 60 Filtrat Rate mL/min Glucose Level 95 Hemoglobin A1c 6.1 H Calcium Level 9.4 Magnesium Level 1.7 Total Bilirubin 0.4 Direct Bilirubin 0.00 Indirect 0.4 Bilirubin Aspartate Amino 39 Transf (AST/SGOT) Alanine 42 Aminotransferase (ALT/SGPT) Alkaline 96 Phosphatase Total Protein 7.2 Albumin 3.7 Globulin 3.50 H Albumin/Globulin 1.05 Ratio Triglycerides 103 Level Cholesterol Level 84 L LDL Cholesterol, 29 Calculated HDL Cholesterol 34 Cholesterol/HDL 2.4 Ratio Thyroid 0.352 L Stimulating Hormone (TSH) Bedside Glucose 95 Past Medical History reviewed Home Meds Reported Medications Cyclobenzaprine Hcl* (Cyclobenzaprine Hcl*) 10 Mg Tablet, 10 MG PO Q8, #60 TAB 11/04/18 Diphenhydramine Hcl (Banophen) 25 Mg Capsule, 25 MG PO DAILY, CAP 11/04/18 Atorvastatin* (Atorvastatin*) 40 Mg Tablet, 40 MG PO QHS, #30 TAB 11/04/18 Aspirin* (Aspirin* EC) 81 Mg Tablet.dr, 81 MG PO DAILY, TAB 11/04/18 Hydrocodone/Acetaminophen ([place] 10-325 Tablet) 1 Each Tablet, 1 EACH PO Q8H PRN for NEEDED, TAB 11/04/18 Brimonidine Tartrate* (Brimonidine Tartrate*) 0.15%-10ML Drop Opht, 1 DROP BOTH EYES Q8, #1 EA 11/04/18 Trazodone Hcl* (Desyrel*) 50 Mg Tab, 50 MG PO BID, #60 TAB 11/04/18 Metformin Hcl* (Metformin Hcl*) 1,000 Mg Tablet, 1000 MG PO WITH BREAKFAST DINNE, #60 TAB 11/04/18 Latanoprost (Latanoprost) 2.5 Ml Drops, 1 DROP BOTH EYES QHS, #1 BOTTLE 11/04/18 Isosorbide Mononitrate* (Isosorbide Mononitrate*) 30 Mg Tab.er.24h, 30 MG PO DAILY, TAB 11/04/18 Amlodipine Besylate* (Amlodipine Besylate*) 10 Mg Tablet, 10 MG PO DAILY, #30 TAB 11/04/18 Famotidine* (Famotidine*) 20 Mg Tablet, 20 MG PO BID, #60 TAB 11/04/18 Timolol Maleate* (Timolol Maleate* Ophth) 0.25%-15ml Opht, 1 DROP BOTH EYES BID, #1 EA 11/04/18 Docusate Sodium* (Colace*) 100 Mg Capsule, 100 MG PO BID, #60 CAP 11/04/18 Glyburide* (Glyburide*) 5 Mg Tablet, 5 MG PO BID, #60 TAB 11/04/18 Discontinued Reported Medications Trazodone Hcl* (Trazodone Hcl*) 100 Mg Tablet, 100 MG PO QHS, #30 TAB 06/17/18 Docusate Sodium (Col-Rite) 100 Mg Capsule, 100 MG PO BID, CAP 01/26/18 Diphenhydramine Hcl* (Diphenhydramine Hcl*) 25 Mg Capsule, 50 MG PO QHS PRN for ITCHING, CAP 01/26/18 Famotidine* (Famotidine*) 20 Mg Tablet, 40 MG PO QHS, #30 TAB 01/26/18 Cyclobenzaprine Hcl* (Cyclobenzaprine Hcl*) 10 Mg Tablet, 10 MG PO Q8, #60 TAB 01/26/18 Amlodipine Besylate* (Amlodipine Besylate*) 10 Mg Tablet, 10 MG PO DAILY, #30 TAB 01/26/18 Atorvastatin* (Atorvastatin*) 40 Mg Tablet, 40 MG PO QHS, #30 TAB 01/26/18 Metformin* (Glucophage*) 1,000 Mg Tablet, 1000 MG PO WITH BREAKFAST DINNE, #60 TAB 01/26/18 Metoprolol Tartrate* (Lopressor*) 25 Mg Tab, 25 MG PO Q12H, #60 TAB 01/26/18 Glyburide* (Glyburide*) 5 Mg Tablet, 5 MG PO WITH BREAKFAST DINNE, #60 TAB 01/26/18 Isosorbide Mononitrate* (Isosorbide Mononitrate*) 30 Mg Tab.er.24h, 30 MG PO DAILY, TAB 01/26/18 Aspirin* (Aspirin* EC) 81 Mg Tablet.dr, 81 MG PO DAILY, TAB 01/26/18 Timolol Maleate* (Timoptic*) 0.5%-5ml Opht, 1 DROP BOTH EYES BID, #1 EA 01/26/18 Brimonidine Tartrate* (Brimonidine Tartrate*) 0.15%-10ML Drop Opht, 1 DROP BOTH EYES BID, #1 EA 01/26/18 Latanoprost (Latanoprost) 2.5 Ml Drops, 1 DROP BOTH EYES QHS, #1 BOTTLE 01/26/18 Medications Current Medications Aspirin (Halfprin) 81 mg DAILY PO Last administered on 11/05/18at 08:22; Admin Dose 81 MG; Start 11/05/18 at 09:00 Atorvastatin Calcium (Lipitor) 40 mg QHS PO Last administered on 11/04/18at 22:45; Admin Dose 40 MG; Start 11/04/18 at 21:00 Brimonidine Tartrate (Alphagan P 0.15%) 1 drop Q8 BOTH EYES Last administered on 11/05/18at 05:08; Admin Dose 1 DROP; Start 11/04/18 at 22:00 Cyclobenzaprine HCl (Flexeril) 10 mg Q8 PO Last administered on 11/05/18 05:08; Admin Dose 10 MG; Start 11/04/18 at 22:00 Docusate Sodium (Colace) 100 mg BID PO Last administered on 11/05/18 08:22; Admin Dose 100 MG; Start 11/04/18 at 21:00 Famotidine (Pepcid) 20 mg BID PO Last administered on 11/05/18 08:23; Admin Dose 20 MG; Start 11/04/18 at 21:00 Isosorbide Mononitrate (Imdur) 30 mg DAILY PO Last administered on 11/05/18 08:22; Admin Dose 30 MG; Start 11/05/18 at 09:00 Latanoprost (Xalatan) 1 drop QHS BOTH EYES Last administered on 11/04/18 22:40; Admin Dose 1 DROP; Start 11/04/18 at 21:00 Timolol Maleate (Timoptic 0.25%) 1 drop BID BOTH EYES Last administered on 11/05/18 08:24; Admin Dose 1 DROP; Start 11/04/18 at 21:00 Trazodone HCl (Desyrel) 50 mg BID PO Last administered on 11/05/18 08:23; Admin Dose 50 MG; Start 11/04/18 at 21:00 Sodium Chloride 1,000 ml @ 50 mls/hr Q20H IV Last administered on 11/04/18 22:45; Admin Dose 50 MLS/HR; Start 11/04/18 at 18:16 IV Flush (NS 3 ml) 3 ml PER PROTOCOL IV ; Start 11/04/18 at 18:30 Ondansetron HCl (Zofran Inj) 4 mg Q6H PRN IV NAUSEA/VOMITING; Start 11/04/18 at 18:30 Acetaminophen (Tylenol Tab) 650 mg Q6H PRN PO .PAIN 1-3 OR TEMP; Start 11/04/18 at 18:30 Lorazepam (Ativan) 2 mg Q10MIN PRN IV seizures; Start 11/04/18 at 18:30 Diagnostic Test (Pha) (Accu-Chek) 1 ea 02 XX Last administered on 11/05/18 02:42; Admin Dose 1 EA; Start 11/05/18 at 02:00 Insulin Aspart (Novolog Insulin Pen) NOVOLOG *MILD* ALGORITHM WITH MEALS BEDTIME SC ; Start 11/04/18 at 21:00 Acetaminophen/ Hydrocodone Bitart ([place] (10)) 1 tab Q4H PRN PO MODERATE PAIN LEVEL 4-6 Last administered on 11/05/18at 08:33; Admin Dose 1 TAB; Start 11/04/18 at 19:00 Levetiracetam 100 ml @ 400 mls/hr Q12 IVPB Last administered on 11/05/18at 09:44; Admin Dose 400 MLS/HR; Start 11/04/18 at 21:00 Miscellaneous Information 1 ea NOTE XX ; Start 11/04/18 at 19:00 Glucose (Glutose) 15 gm Q15M PRN PO DECREASED GLUCOSE; Start 11/04/18 at 19:00 Glucose (Glutose) 22.5 gm Q15M PRN PO DECREASED GLUCOSE; Start 11/04/18 at 19:00 Dextrose (D50w Syringe) 25 ml Q15M PRN IV DECREASED GLUCOSE; Start 11/04/18 at 19:00 Dextrose (D50w Syringe) 50 ml Q15M PRN IV DECREASED GLUCOSE; Start 11/04/18 at 19:00 Glucagon (Glucagen) 1 mg Q15M PRN IM DECREASED GLUCOSE; Start 11/04/18 at 19:00 Glucose (Glutose) 15 gm Q15M PRN BUCCAL DECREASED GLUCOSE; Start 11/04/18 at 19:00 Amlodipine Besylate (Norvasc) 10 mg DAILY PO Last administered on 11/05/18at 08:23; Admin Dose 10 MG; Start 11/05/18 at 00:00 Allergies: Coded Allergies: No Known Allergy (Unverified , 11/04/18) Past Surgical History reviewed Social History Smoking Status: Former smoker LEROY SANTANA Nov 05, 2018 10:10
[2018-11-05] MEDS ORDERED: hydrALAzine 20 MG INJ IV PRN (12:00)
[2018-11-05] MEDS ORDERED: POTASSIUM CHLORIDE 20 MEQ POWDER FOR ORAL SOLN PO ONE (12:30)
[2018-11-05] MEDS ORDERED: ACET/BUTAL/CAFF TAB PO ONE (12:30)
--- NOTE | 2018-11-05 12:30 | RADRPT ---
Echocardiogram Report Patient Name: Jose Antonio BRUNO ID: [id number] : 1955 (63y 8m)Study Date: 11/05/2018 7:18:09 AM Gender: MAccession #: [id number] Tech: [facility] Location: [facility] Ref.Physician: AVELINO HINTON Height(Cm): BSA: Weight(Kg): Quality: AdequateOrder Physician: AVELINO HINTON Account #: Procedures: Echocardiographic Report: Transthoracic echocardiogram with complete 2D, M-Mode, and doppler examination. Indications: Syncope. Measurements: 2D/M Mode Doppler Measurement Value Normal Range Measurement Value Normal Range LVIDd 2D 3.8 [ 4.2 - 5.8 ] cm AV Peak Wes 1.5 [ 100.0 - 170.0 ] cm/sec LVIDs 2D 2.2 [ 2.5 - 4.0 ] cm AV Peak PG 10.0 [ 2.0 - 9.0 ] mmHg LVPWd 2D 1.1 [ 0.6 - 1.0 ] cm AI Peak PG 89.0 mmHg IVSd 2D 1.9 [ 0.6 - 1.0 ] cm AI Peak Wes 4.7 cm/sec AoR Diam 2D 3.2 [ 2.6 - 3.4 ] cm AI PHT 973.0 msec EDV 2D 61.2 [ 62.0 - 150.0 ] ml LVOT Peak Wes 1.2 [ 70.0 - 110.0 ] cm/sec ESV 2D 15.5 [ 21.0 - 61.0 ] ml LVOT Peak PG 6.0 [ 2.0 - 6.0 ] mmHg EF 2D 74.7 [ 52.0 - 72.0 ] percent MV E Peak Wes 0.5 [ 60.0 - 130.0 ] cm/sec LA Dimen 2D 3.4 [ 3.0 - 4.0 ] cm MV A Peak Wes 0.7 [ 100.0 - 120.0 ] cm/sec MV E/A 0.7 [ 0.8 - 1.5 ] ratio MV Decel Time 134 [ 104 - 258 ] msec Lat E` Wes 0.1 [ 10.0 - 15.0 ] cm/sec Lateral E/E` 7.0 [ 1.0 - 2.0 ] ratio MV E/A 0.7 [ 0.8 - 1.5 ] ratio TR Peak Wes 2.6 [ 100.0 - 280.0 ] cm/sec TR Peak PG 26.0 mmHg RVSP 29.0 [ 10.0 - 36.0 ] mmHg RA Pressure 3.0 mmHg Findings: Left Ventricle: Normal left ventricular systolic function. Normal left ventricular cavity size. Sigmoid septum. Ejection fraction is visually estimated at 65 %. Tissue Doppler/Mitral Doppler indices are consistent with impaired relaxation (Stage I diastolic dysfunction). Right Ventricle: Normal right ventricular size. Normal right ventricular systolic function. Left Atrium: There is mild enlargement of left atrium. Right Atrium: The right atrium is normal in size. Mitral Valve: Normal appearance and function of the mitral valve with trace physiologic regurgitation. Aortic Valve: Normal appearance of the aortic valve. Mild aortic valve regurgitation. Tricuspid Valve: Normal appearance and function of the tricuspid valve with trace physiologic regurgitation. Normal right ventricular systolic pressure. The estimated Peak RVSP is 29 mmHg. Pulmonic Valve: Normal pulmonic valve appearance. Pericardium: Normal pericardium with no significant pericardial effusion. Aorta: Normal aortic root. IVC: Normal size and normal respiratory collapse consistent with normal right atrial pressure. Conclusions: Normal left ventricular systolic function. Normal left ventricular cavity size. Sigmoid septum. Ejection fraction is visually estimated at 65 %. Tissue Doppler/Mitral Doppler indices are consistent with impaired relaxation (Stage I diastolic dysfunction). Mild aortic valve regurgitation. The estimated Peak RVSP is 29 mmHg. Normal size and normal respiratory collapse consistent with normal right atrial pressure. Electronically Signed By: Jayson Sellers 2018-11-05 12:29:02 PDT
--- NOTE | 2018-11-05 12:48 | PN ---
Date/Time of Note Date/Time of Note DATE: 11/05/18 TIME: 12:42 Objective Vitals Vital Signs Date Temp Pulse Resp B/P (MAP) Pulse Ox O2 O2 Flow FiO2 Time Delivery Rate 11/05/18 98.0 76 20 139/81 97 Room Air 11:10 (100) Intake and Output 11/04/18 11/04/18 11/05/18 1515:00 23:00 07:00 IntakeIntake Total 725 ml OutputOutput Total 850 ml BalanceBalance -125 ml Results Result Diagram: 11/05/18 0551 11/05/18 0551 Medications Medications Current Medications Aspirin (Halfprin) 81 mg DAILY PO Last administered on 11/05/18 08:22; Admin Dose 81 MG; Start 11/05/18 at 09:00 Atorvastatin Calcium (Lipitor) 40 mg QHS PO Last administered on 11/04/18 22:45; Admin Dose 40 MG; Start 11/04/18 at 21:00 Brimonidine Tartrate (Alphagan P 0.15%) 1 drop Q8 BOTH EYES Last administered on 11/05/18 05:08; Admin Dose 1 DROP; Start 11/04/18 at 22:00 Cyclobenzaprine HCl (Flexeril) 10 mg Q8 PO Last administered on 11/05/18 05:08; Admin Dose 10 MG; Start 11/04/18 at 22:00 Docusate Sodium (Colace) 100 mg BID PO Last administered on 11/05/18 08:22; Admin Dose 100 MG; Start 11/04/18 at 21:00 Famotidine (Pepcid) 20 mg BID PO Last administered on 11/05/18 08:23; Admin Dose 20 MG; Start 11/04/18 at 21:00 Isosorbide Mononitrate (Imdur) 30 mg DAILY PO Last administered on 11/05/18 08:22; Admin Dose 30 MG; Start 11/05/18 at 09:00 Latanoprost (Xalatan) 1 drop QHS BOTH EYES Last administered on 11/04/18 22:40; Admin Dose 1 DROP; Start 11/04/18 at 21:00 Timolol Maleate (Timoptic 0.25%) 1 drop BID BOTH EYES Last administered on 11/05/18 08:24; Admin Dose 1 DROP; Start 11/04/18 at 21:00 Trazodone HCl (Desyrel) 50 mg BID PO Last administered on 11/05/18at 08:23; Admin Dose 50 MG; Start 11/04/18 at 21:00 IV Flush (NS 3 ml) 3 ml PER PROTOCOL IV ; Start 11/04/18 at 18:30 Ondansetron HCl (Zofran Inj) 4 mg Q6H PRN IV NAUSEA/VOMITING; Start 11/04/18 at 18:30 Acetaminophen (Tylenol Tab) 650 mg Q6H PRN PO .PAIN 1-3 OR TEMP Last administered on 11/05/18at 11:58; Admin Dose 650 MG; Start 11/04/18 at 18:30 Lorazepam (Ativan) 2 mg Q10MIN PRN IV seizures; Start 11/04/18 at 18:30 Diagnostic Test (Pha) (Accu-Chek) 1 ea 02 XX Last administered on 11/05/18at 02:42; Admin Dose 1 EA; Start 11/05/18 at 02:00 Insulin Aspart (Novolog Insulin Pen) NOVOLOG *MILD* ALGORITHM WITH MEALS BEDTIME SC ; Start 11/04/18 at 21:00 Acetaminophen/ Hydrocodone Bitart (Bulan (10/325)) 1 tab Q4H PRN PO MODERATE PAIN LEVEL 4-6 Last administered on 11/05/18at 08:33; Admin Dose 1 TAB; Start 11/04/18 at 19:00 Miscellaneous Information 1 ea NOTE XX ; Start 11/04/18 at 19:00 Glucose (Glutose) 15 gm Q15M PRN PO DECREASED GLUCOSE; Start 11/04/18 at 19:00 Glucose (Glutose) 22.5 gm Q15M PRN PO DECREASED GLUCOSE; Start 11/04/18 at 19:00 Dextrose (D50w Syringe) 25 ml Q15M PRN IV DECREASED GLUCOSE; Start 11/04/18 at 19:00 Dextrose (D50w Syringe) 50 ml Q15M PRN IV DECREASED GLUCOSE; Start 11/04/18 at 19:00 Glucagon (Glucagen) 1 mg Q15M PRN IM DECREASED GLUCOSE; Start 11/04/18 at 19:00 Glucose (Glutose) 15 gm Q15M PRN BUCCAL DECREASED GLUCOSE; Start 7/17/19 at 19:00 Amlodipine Besylate (Norvasc) 10 mg DAILY PO Last administered on 11/05/18at 08:23; Admin Dose 10 MG; Start 11/05/18 at 00:00 Hydralazine HCl (Apresoline) 10 mg Q4H PRN IV sbp >160; Start 11/05/18 at 12:00 Metformin HCl (Glucophage) 500 mg BID WITH MEALS PO ; Start 11/05/18 at 18:00 VTE Prophylaxis Risk score (from [facility])>0 risk: 4 SCD applied (from [facility]): No SCD contraindication: other Lines/Catheters IV Catheter Type: Merlos in Place: No Assessment/Plan Hospital Course Subjective Patient doing well just complaining of headache, also complaining of mild slurred speech for the past 3 days Objective Physical exam General: Patient is laying in bed and answers questions appropriately Mentation: Patient is alert and oriented 4, Head: Normocephalic atraumatic Eyes: EOMI, pupils reactive to light Neck: Supple, nontender, midline Respiratory: Clear to auscultation bilaterally Cardiovascular: regular rate, no obvious murmurs Gastrointestinal: non-tender to palpation, bowel sounds heard. Neurological: Moves all extremities spontaneously Skin: No new skin lesions Musculoskeletal: Pain on palpation of feet bilaterally Assessment and plan Syncope -Unknown cause, patient had a one-time occurrence of syncope in the past due to hypoglycemia, patient is on sulfonylurea however his glucose is within normal limits here. Of note patient has not needed insulin at all and he was on metformin and glipizide at home, hypoglycemia that had resolved before EMS arrived is beginning to look like more of the etiology as he also had this happen in the past. -Patient may be volume depleted, IV hydration given, now discontinued -Urine drug screen and UA negative except for prescribed opiates -Neurology consulted, -MRI, echo, carotid ultrasound noted -CT noted -Orthostatic vitals however will be limited as patient cannot stand Slurred speech -Patient states this is been going on for 3 days, CT and MRI are negative, neurology on board -Monitor closely Headache -We will try one-time Fioricet -Neurology recognitions appreciated Questionable seizure -Patient was passed out and bystander did say that he was shaking however this is questionable if true seizure versus another phenomenon such as convulsive syncope -Neurology consulted -Keppra discontinued per neurology recommendations -Ativan as needed Recent lower extremity swelling -Patient has chronic foot pain and stated that recently he had both legs swell up, no history of DVT -Ultrasound venous bilaterally negative for DVT Acute kidney injury versus chronic kidney disease -Resolved, monitor closely Recent history of osteomyelitis -Patient states that he had a bone infection in the back and recently finished 6 weeks of IV antibiotics at a [facility], he was discharged 2 days ago Hypertension -Continue home meds Diabetes mellitus -A1c is actually below diabetic levels, I suspect patient is overmedicated, will restart patient on low-dose metformin and monitor closely, will discontinue glipizide from his regimen. Questionable coronary artery disease -Continue baby aspirin as well as other home medications Glaucoma -Continue home drops Active hepatitis C -Untreated, will get hepatitis levels Chronic debility -Patient had a fall from a ladder a couple years ago which is the cause of his chronic back pain as well as chronic foot pain -Wheelchair-bound Anemia -Mild, monitor for now Disposition -Possible SNF placement -Neurology work-up pending AVELINO HINTON Nov 05, 2018 12:48
[2018-11-05] MEDS: metFORMIN 500 MG TAB PO SCH (17:34)
[2018-11-05] MEDS: ATORVASTATIN 40 MG TAB PO SCH (20:52)
[2018-11-05] MEDS: LATANOPROST 0.005% 2.5 ML OPH BOTH EYES SCH (20:53)
[2018-11-06] VITALS (7 sets, daily range): BP systolic 115–149; BP diastolic 67–76; PULSE 65–72; RESP 17–21
[2018-11-06] MEDS: ACCU-CHEK XX SCH (01:50)
[2018-11-06] MEDS: BRIMONIDINE 0.15% 5 ML OPH BOTH EYES SCH ×3 (05:24→22:09)
[2018-11-06] MEDS: CYCLOBENZAPRINE 10 MG TAB PO SCH ×3 (05:24→22:00)
--- NOTE | 2018-11-06 06:42 | EEG ---
EEG NOTE Report Details DATE OF TEST: 11/05/18 HISTORY: The patient is a 63-year-old M who presents with LOC. This EEG is requested to evaluate for an epileptic disorder. SEDATION: None. CONDITIONS OF RECORDING: This EEG was recorded digitally on the [id number] machine, using the International 10-20 System of electrodes plus anterior temporals and [place]. STATES SAMPLED: Wakefulness and drowsiness. FINDINGS: The background is continuos and grossly symmetric. There is a normal [id number] frequency-amplitude gradient. The remainder of the awake background is notable for admixed theta and delta activity. Photic stimulation does not elicit any definite driving responses or epileptiform discharges. Hyperventilation was not performed. The patient became drowsy but did not pass into sleep. No asymmetries, focal abnormalities or epileptiform discharges were seen. IMPRESSION: Abnormal electroencephalogram due to: mild diffuse slowing. COMMENT: The slowing of the background indicates mild, diffuse cortical dysfunction of nonspecific etiology. LEROY SANTANA Nov 06, 2018 06:42
[2018-11-06] MEDS: INSULIN ASPART [NOVOLOG] 3 ML PEN SC SCH ×4 (08:00→21:00)
[2018-11-06] MEDS: ISOSORBIDE MONONITRATE(SR)30 MG TAB PO SCH (08:24)
[2018-11-06] MEDS: ASPIRIN (EC) 81 MG TAB PO SCH (08:24)
[2018-11-06] MEDS: AMLODIPINE 10 MG TAB PO SCH (08:24)
[2018-11-06] MEDS: traZODone 50 MG TAB PO SCH ×2 (08:24→22:09)
[2018-11-06] MEDS: metFORMIN 500 MG TAB PO SCH ×2 (08:24→17:47)
[2018-11-06] MEDS: DOCUSATE SODIUM 100 MG CAP PO SCH ×2 (08:24→22:09)
[2018-11-06] MEDS: FAMOTIDINE 20 MG TAB PO SCH ×2 (08:25→22:09)
[2018-11-06] MEDS: TIMOLOL 0.25% 5 ML OPH BOTH EYES SCH ×2 (08:25→22:10)
[2018-11-06] MEDS: HYDROCODONE/APAP (10/325) TAB PO PRN ×3 (08:37→22:09)
[2018-11-06] MEDS ORDERED: KETOROLAC 30 MG INJ IM STA (11:07)
--- NOTE | 2018-11-06 11:29 | PN ---
Date/Time of Note Date/Time of Note DATE: 11/06/18 TIME: 11:27 Objective Vitals Vital Signs Date Temp Pulse Resp B/P (MAP) Pulse Ox O2 O2 Flow FiO2 Time Delivery Rate 11/06/18 98.2 68 18 136/72 93 Room Air 07:23 (93) Intake and Output 11/05/18 11/05/18 11/06/18 1515:00 23:00 07:00 IntakeIntake Total 100 ml 1350 ml 380 ml OutputOutput Total 500 ml 1800 ml 400 ml BalanceBalance -400 ml -450 ml -20 ml Results Result Diagram: 11/06/18 0445 11/06/18 0445 Medications Medications Current Medications Aspirin (Halfprin) 81 mg DAILY PO Last administered on 11/06/18 08:24; Admin Dose 81 MG; Start 11/05/18 at 09:00 Atorvastatin Calcium (Lipitor) 40 mg QHS PO Last administered on 11/05/18 20:52; Admin Dose 40 MG; Start 11/04/18 at 21:00 Brimonidine Tartrate (Alphagan P 0.15%) 1 drop Q8 BOTH EYES Last administered on 11/06/18 05:24; Admin Dose 1 DROP; Start 11/04/18 at 22:00 Cyclobenzaprine HCl (Flexeril) 10 mg Q8 PO Last administered on 11/06/18 05:24; Admin Dose 10 MG; Start 11/04/18 at 22:00 Docusate Sodium (Colace) 100 mg BID PO Last administered on 11/06/18 08:24; Admin Dose 100 MG; Start 11/04/18 at 21:00 Famotidine (Pepcid) 20 mg BID PO Last administered on 11/06/18 08:25; Admin Dose 20 MG; Start 11/04/18 at 21:00 Isosorbide Mononitrate (Imdur) 30 mg DAILY PO Last administered on 11/06/18 08:24; Admin Dose 30 MG; Start 11/05/18 at 09:00 Latanoprost (Xalatan) 1 drop QHS BOTH EYES Last administered on 11/05/18 20:53; Admin Dose 1 DROP; Start 11/04/18 at 21:00 Timolol Maleate (Timoptic 0.25%) 1 drop BID BOTH EYES Last administered on 11/06/18 08:25; Admin Dose 1 DROP; Start 11/04/18 at 21:00 Trazodone HCl (Desyrel) 50 mg BID PO Last administered on 11/06/18 08:24; Admin Dose 50 MG; Start 11/04/18 at 21:00 IV Flush (NS 3 ml) 3 ml PER PROTOCOL IV ; Start 11/04/18 at 18:30 Ondansetron HCl (Zofran Inj) 4 mg Q6H PRN IV NAUSEA/VOMITING; Start 11/04/18 at 18:30 Acetaminophen (Tylenol Tab) 650 mg Q6H PRN PO .PAIN 1-3 OR TEMP Last administered on 11/05/18 11:58; Admin Dose 650 MG; Start 11/04/18 at 18:30 Lorazepam (Ativan) 2 mg Q10MIN PRN IV seizures; Start 11/04/18 at 18:30 Diagnostic Test (Pha) (Accu-Chek) 1 ea 02 XX Last administered on 11/05/18at 02:42; Admin Dose 1 EA; Start 11/05/18 at 02:00 Insulin Aspart (Novolog Insulin Pen) NOVOLOG *MILD* ALGORITHM WITH MEALS BEDTIME SC Last administered on 11/05/18 17:39; Admin Dose 1 UNIT; Start 11/04/18 at 21:00 Acetaminophen/ Hydrocodone Bitart ([place]ibbs (10/325)) 1 tab Q4H PRN PO MODERATE PAIN LEVEL 4-6 Last administered on 11/06/18 08:37; Admin Dose 1 TAB; Start 11/04/18 at 19:00 Miscellaneous Information 1 ea NOTE XX ; Start 11/04/18 at 19:00 Glucose (Glutose) 15 gm Q15M PRN PO DECREASED GLUCOSE; Start 11/04/18 at 19:00 Glucose (Glutose) 22.5 gm Q15M PRN PO DECREASED GLUCOSE; Start 11/04/18 at 19:00 Dextrose (D50w Syringe) 25 ml Q15M PRN IV DECREASED GLUCOSE; Start 11/04/18 at 19:00 Dextrose (D50w Syringe) 50 ml Q15M PRN IV DECREASED GLUCOSE; Start 11/04/18 at 19:00 Glucagon (Glucagen) 1 mg Q15M PRN IM DECREASED GLUCOSE; Start 11/04/18 at 19:00 Glucose (Glutose) 15 gm Q15M PRN BUCCAL DECREASED GLUCOSE; Start 11/04/18 at 19:00 Amlodipine Besylate (Norvasc) 10 mg DAILY PO Last administered on 11/06/18at 08:24; Admin Dose 10 MG; Start 11/05/18 at 00:00 Hydralazine HCl (Apresoline) 10 mg Q4H PRN IV sbp >160; Start 11/05/18 at 12:00 Metformin HCl (Glucophage) 500 mg BID WITH MEALS PO Last administered on 11/06/18at 08:24; Admin Dose 500 MG; Start 11/05/18 at 18:00 Ketorolac Tromethamine (Toradol) 15 mg Q6H PRN IV PAIN/headache; Start 11/06/18 at 11:30; Stop 11/09/18 at 11:29 VTE Prophylaxis Risk score (from [facility])>0 risk: 4 SCD applied (from [facility]): Yes Lines/Catheters IV Catheter Type: Merlos in Place: No Assessment/Plan Hospital Course Subjective Patient doing well just complaining of headache still, but appears comfortable Objective Physical exam General: Patient is laying in bed and answers questions appropriately Mentation: Patient is alert and oriented 4, Head: Normocephalic atraumatic Eyes: EOMI, pupils reactive to light Neck: Supple, nontender, midline Respiratory: Clear to auscultation bilaterally Cardiovascular: regular rate, no obvious murmurs Gastrointestinal: non-tender to palpation, bowel sounds heard. Neurological: Moves all extremities spontaneously Skin: No new skin lesions Musculoskeletal: Pain on palpation of feet bilaterally Assessment and plan Syncope -Unknown cause, patient had a one-time occurrence of syncope in the past due to hypoglycemia, patient is on sulfonylurea however his glucose is within normal limits here. Of note patient has not needed insulin at all and he was on metformin and glipizide at home, hypoglycemia that had resolved before EMS arrived is beginning to look like more of the etiology as he also had this happen in the past. -Patient may be volume depleted, IV hydration given, now discontinued -Urine drug screen and UA negative except for prescribed opiates -Neurology consulted, -MRI, echo, carotid ultrasound noted -CT noted -Orthostatic vitals however will be limited as patient cannot stand Slurred speech -Patient states this is been going on for 3 days, CT and MRI are negative, artur rology on board -Monitor closely Headache -Patient appears very comfortable however he states that the headache is moderate to severe, will attempt Toradol for now, neurology -Neurology recognitions appreciated states to try Tylenol and Toradol before opiates. Questionable seizure -Patient was passed out and bystander did say that he was shaking however this is questionable if true seizure versus another phenomenon such as convulsive syncope -Neurology consulted -Keppra discontinued per neurology recommendations -Ativan as needed Recent lower extremity swelling -Patient has chronic foot pain and stated that recently he had both legs swell up, no history of DVT -Ultrasound venous bilaterally negative for DVT Chronic foot pain -Secondary to fall many years ago, same accident as his back pain -X-ray showing questionable sclerotic lesion -MRI pending -This may be part of the osteomyelitis diagnosis that was treated with recent 6 weeks of antibiotics. Will need to get records. Acute kidney injury versus chronic kidney disease -Resolved, monitor closely Recent history of osteomyelitis -Patient states that he had a bone infection in the back and recently finished 6 weeks of IV antibiotics at a [facility], he was discharged 2 days ago Hypertension -Continue home meds Diabetes mellitus -A1c is actually below diabetic levels, I suspect patient is overmedicated, will restart patient on low-dose metformin and monitor closely, will discontinue glipizide from his regimen. Questionable coronary artery disease -Continue baby aspirin as well as other home medications Glaucoma -Continue home drops Active hepatitis C -Untreated, will get hepatitis levels Chronic debility -Patient had a fall from a ladder a couple years ago which is the cause of his chronic back pain as well as chronic foot pain -Wheelchair-bound Anemia -Mild, monitor for now Disposition -Possible SNF placement -MRI pending AVELINO HINTON Nov 06, 2018 11:29
--- NOTE | 2018-11-06 12:15 | CONS ---
Assessment/Plan Assessment/Plan Assessment/Plan (Recall) 63 M c/ multiple comorbidities, who presents for evaluation of LOC w/ ? shaking c/f seizure.. MIKE + on presentation Convulsive syncope is a consideration.. Epilepsy is less likely. MRI brain is reassuringly negative for acute intracranial pathology, or prior cortically based stroke.. EEG is negative for epileptiform activity. P: Hold Keppra for now Ativan iv prn prolonged seizure or cluster Agree w/ asa/lipitor daily for secondary stroke prevention PT/OT as necessary Other medical management and supportive care per primary Will follow clinically Consultation Date/Type/Reason Admit Date/Time Nov 04, 2018 at 18:10 Type of Consult Neurology Reason for Consultation ? seizure Requesting Provider: AVELINO HINTON Date/Time of Note DATE: 11/06/18 TIME: 12:14 24 HR Interval Summary Free Text/Dictation s/p EEG Exam/Review of Systems Exam Vitals Vital Signs Date Temp Pulse Resp B/P (MAP) Pulse Ox O2 O2 Flow FiO2 Time Delivery Rate 11/06/18 98.0 71 18 115/72 94 Room Air 11:28 (86) Intake and Output 11/05/18 11/05/18 11/06/18 1515:00 23:00 07:00 IntakeIntake Total 100 ml 1350 ml 380 ml OutputOutput Total 500 ml 1800 ml 400 ml BalanceBalance -400 ml -450 ml -20 ml Results Result Diagram: 11/06/18 0445 11/06/18 0445 Results 24hrs Laboratory Tests Test 11/05/18 17:32 11/05/18 20:51 11/06/18 04:45 11/06/18 08:22 Bedside Glucose 178 109 130 White Blood Count 6.0 Red Blood Count 4.07 L Hemoglobin 10.9 L Hematocrit 34.6 L Mean Corpuscular 85.0 Volume Mean Corpuscular 26.8 L Hemoglobin Mean Corpuscular 31.5 L Hemoglobin Concent Red Cell 13.6 Distribution Width Platelet Count 217 Mean Platelet Volume 9.7 Immature 0.300 Granulocytes % Neutrophils % 65.5 Lymphocytes % 18.0 Monocytes % 13.8 H Eosinophils % 2.2 Basophils % 0.2 Nucleated Red Blood 0.0 Cells % Immature 0.020 Granulocytes # Neutrophils # 3.9 Lymphocytes # 1.1 Monocytes # 0.8 Eosinophils # 0.1 Basophils # 0.0 Nucleated Red Blood 0.0 Cells # Sodium Level 145 H Potassium Level 3.8 Chloride Level 109 Carbon Dioxide Level 27 Anion Gap 9 Blood Urea Nitrogen 21 H Creatinine 1.09 Est Glomerular > 60 Filtrat Rate mL/min Glucose Level 132 Calcium Level 9.5 Phosphorus Level 3.1 Magnesium Level 1.7 Test 11/06/18 11:49 Bedside Glucose 119 Medications Medication Current Medications Aspirin (Halfprin) 81 mg DAILY PO Last administered on 11/06/18 08:24; Admin Dose 81 MG; Start 11/05/18 at 09:00 Atorvastatin Calcium (Lipitor) 40 mg QHS PO Last administered on 11/05/18 20:52; Admin Dose 40 MG; Start 11/04/18 at 21:00 Brimonidine Tartrate (Alphagan P 0.15%) 1 drop Q8 BOTH EYES Last administered on 11/06/18 05:24; Admin Dose 1 DROP; Start 11/04/18 at 22:00 Cyclobenzaprine HCl (Flexeril) 10 mg Q8 PO Last administered on 11/06/18 05:24; Admin Dose 10 MG; Start 11/04/18 at 22:00 Docusate Sodium (Colace) 100 mg BID PO Last administered on 11/06/18 08:24; Admin Dose 100 MG; Start 11/04/18 at 21:00 Famotidine (Pepcid) 20 mg BID PO Last administered on 11/06/18 08:25; Admin Dose 20 MG; Start 11/04/18 at 21:00 Isosorbide Mononitrate (Imdur) 30 mg DAILY PO Last administered on 11/06/18 08:24; Admin Dose 30 MG; Start 11/05/18 at 09:00 Latanoprost (Xalatan) 1 drop QHS BOTH EYES Last administered on 11/05/18 20:53; Admin Dose 1 DROP; Start 11/04/18 at 21:00 Timolol Maleate (Timoptic 0.25%) 1 drop BID BOTH EYES Last administered on 11/06/18 08:25; Admin Dose 1 DROP; Start 11/04/18 at 21:00 Trazodone HCl (Desyrel) 50 mg BID PO Last administered on 11/06/18 08:24; Adm in Dose 50 MG; Start 11/04/18 at 21:00 IV Flush (NS 3 ml) 3 ml PER PROTOCOL IV ; Start 11/04/18 at 18:30 Ondansetron HCl (Zofran Inj) 4 mg Q6H PRN IV NAUSEA/VOMITING; Start 11/04/18 at 18:30 Acetaminophen (Tylenol Tab) 650 mg Q6H PRN PO .PAIN 1-3 OR TEMP Last administered on 11/05/18at 11:58; Admin Dose 650 MG; Start 11/04/18 at 18:30 Lorazepam (Ativan) 2 mg Q10MIN PRN IV seizures; Start 11/04/18 at 18:30 Diagnostic Test (Pha) (Accu-Chek) 1 ea 02 XX Last administered on 11/05/18at 02:42; Admin Dose 1 EA; Start 11/05/18 at 02:00 Insulin Aspart (Novolog Insulin Pen) NOVOLOG *MILD* ALGORITHM WITH MEALS BEDTIME SC Last administered on 11/05/18at 17:39; Admin Dose 1 UNIT; Start 11/04/18 at 21:00 Acetaminophen/ Hydrocodone Bitart ([place] (10/325)) 1 tab Q4H PRN PO MODERATE PAIN LEVEL 4-6 Last administered on 11/06/18at 08:37; Admin Dose 1 TAB; Start 11/04/18 at 19:00 Miscellaneous Information 1 ea NOTE XX ; Start 11/04/18 at 19:00 Glucose (Glutose) 15 gm Q15M PRN PO DECREASED GLUCOSE; Start 11/04/18 at 19:00 Glucose (Glutose) 22.5 gm Q15M PRN PO DECREASED GLUCOSE; Start 11/04/18 at 19: 00 Dextrose (D50w Syringe) 25 ml Q15M PRN IV DECREASED GLUCOSE; Start 11/04/18 at 19:00 Dextrose (D50w Syringe) 50 ml Q15M PRN IV DECREASED GLUCOSE; Start 11/04/18 at 19:00 Glucagon (Glucagen) 1 mg Q15M PRN IM DECREASED GLUCOSE; Start 11/04/18 at 19:00 Glucose (Glutose) 15 gm Q15M PRN BUCCAL DECREASED GLUCOSE; Start 11/04/18 at 19:00 Amlodipine Besylate (Norvasc) 10 mg DAILY PO Last administered on 11/06/18at 08:24; Admin Dose 10 MG; Start 11/05/18 at 00:00 Hydralazine HCl (Apresoline) 10 mg Q4H PRN IV sbp >160; Start 11/05/18 at 12:00 Metformin HCl (Glucophage) 500 mg BID WITH MEALS PO Last administered on 11/06/18at 08:24; Admin Dose 500 MG; Start 11/05/18 at 18:00 Ketorolac Tromethamine (Toradol) 15 mg Q6H PRN IV PAIN/headache; Start 11/06/18 at 11:30; Stop 11/09/18 at 11:29 LEROY SANTANA Nov 06, 2018 12:15
[2018-11-06] MEDS: KETOROLAC 15 MG INJ IV PRN (19:28)
[2018-11-06] MEDS: ATORVASTATIN 40 MG TAB PO SCH (22:09)
[2018-11-06] MEDS: LATANOPROST 0.005% 2.5 ML OPH BOTH EYES SCH (22:10)
[2018-11-07] MEDS: ACCU-CHEK XX SCH (02:00)
[2018-11-07 04:51] VITALS: BP 141/77; PULSE 77; RESP 18
[2018-11-07] MEDS: CYCLOBENZAPRINE 10 MG TAB PO SCH ×3 (06:00→22:17)
[2018-11-07] MEDS: BRIMONIDINE 0.15% 5 ML OPH BOTH EYES SCH ×3 (06:31→22:17)
[2018-11-07] MEDS: HYDROCODONE/APAP (10/325) TAB PO PRN ×3 (06:36→22:17)
[2018-11-07 07:08] VITALS: BP 155/82; PULSE 62; RESP 18
[2018-11-07] MEDS: metFORMIN 500 MG TAB PO SCH ×2 (07:40→17:40)
[2018-11-07] MEDS: INSULIN ASPART [NOVOLOG] 3 ML PEN SC SCH ×4 (07:40→21:00)
[2018-11-07] MEDS: FAMOTIDINE 20 MG TAB PO SCH ×2 (08:30→21:03)
[2018-11-07] MEDS: traZODone 50 MG TAB PO SCH ×2 (08:30→21:03)
[2018-11-07] MEDS: AMLODIPINE 10 MG TAB PO SCH (08:31)
[2018-11-07] MEDS: DOCUSATE SODIUM 100 MG CAP PO SCH ×2 (08:31→21:03)
[2018-11-07] MEDS: ISOSORBIDE MONONITRATE(SR)30 MG TAB PO SCH (08:31)
[2018-11-07] MEDS: ASPIRIN (EC) 81 MG TAB PO SCH (08:31)
[2018-11-07] MEDS: TIMOLOL 0.25% 5 ML OPH BOTH EYES SCH ×2 (08:31→21:02)
[2018-11-07] MEDS ORDERED: MAGNESIUM SULFATE 2 GM/50 ML 50 ML IVPB ONE (09:30)
--- NOTE | 2018-11-07 10:10 | PN ---
Date/Time of Note Date/Time of Note DATE: 11/07/18 TIME: 10:07 Objective Vitals Vital Signs Date Temp Pulse Resp B/P (MAP) Pulse Ox O2 O2 Flow FiO2 Time Delivery Rate 11/07/18 97.9 62 18 155/82 96 07:08 (106) 11/06/18 Room Air 15:20 Intake and Output 11/06/18 11/06/18 11/07/18 1515:00 23:00 07:00 IntakeIntake Total 1200 ml 500 ml OutputOutput Total 860 ml 1200 ml BalanceBalance 340 ml -700 ml Results Result Diagram: 11/07/18 0451 11/07/18 0451 Medications Medications Current Medications Aspirin (Halfprin) 81 mg DAILY PO Last administered on 11/07/18 08:31; Admin Dose 81 MG; Start 11/05/18 at 09:00 Atorvastatin Calcium (Lipitor) 40 mg QHS PO Last administered on 11/06/18 22:09; Admin Dose 40 MG; Start 11/04/18 at 21:00 Brimonidine Tartrate (Alphagan P 0.15%) 1 drop Q8 BOTH EYES Last administered on 11/07/18 06:31; Admin Dose 1 DROP; Start 11/04/18 at 22:00 Cyclobenzaprine HCl (Flexeril) 10 mg Q8 PO Last administered on 11/06/18 17:46; Admin Dose 10 MG; Start 11/04/18 at 22:00 Docusate Sodium (Colace) 100 mg BID PO Last administered on 11/07/18 08:31; Admin Dose 100 MG; Start 11/04/18 at 21:00 Famotidine (Pepcid) 20 mg BID PO Last administered on 11/07/18 08:30; Admin Dose 20 MG; Start 11/04/18 at 21:00 Isosorbide Mononitrate (Imdur) 30 mg DAILY PO Last administered on 11/07/18 08:31; Admin Dose 30 MG; Start 11/05/18 at 09:00 Latanoprost (Xalatan) 1 drop QHS BOTH EYES Last administered on 11/06/18 22:10; Admin Dose 1 DROP; Start 11/04/18 at 21:00 Timolol Maleate (Timoptic 0.25%) 1 drop BID BOTH EYES Last administered on 11/07/18 08:31; Admin Dose 1 DROP; Start 11/04/18 at 21:00 Trazodone HCl (Desyrel) 50 mg BID PO Last administered on 11/07/18 08:30; Admin Dose 50 MG; Start 11/04/18 at 21:00 IV Flush (NS 3 ml) 3 ml PER PROTOCOL IV ; Start 11/04/18 at 18:30 Ondansetron HCl (Zofran Inj) 4 mg Q6H PRN IV NAUSEA/VOMITING; Start 11/04/18 at 18:30 Acetaminophen (Tylenol Tab) 650 mg Q6H PRN PO .PAIN 1-3 OR TEMP Last administered on 11/05/18at 11:58; Admin Dose 650 MG; Start 11/04/18 at 18:30 Lorazepam (Ativan) 2 mg Q10MIN PRN IV seizures; Start 11/04/18 at 18:30 Diagnostic Test (Pha) (Accu-Chek) 1 ea 02 XX Last administered on 11/05/18at 02:42; Admin Dose 1 EA; Start 11/05/18 at 02:00 Insulin Aspart (Novolog Insulin Pen) NOVOLOG *MILD* ALGORITHM WITH MEALS BEDTIME SC Last administered on 11/05/18at 17:39; Admin Dose 1 UNIT; Start 11/04/18 at 21:00 Acetaminophen/ Hydrocodone Bitart ([place] (10/325)) 1 tab Q4H PRN PO MODERATE PAIN LEVEL 4-6 Last administered on 11/07/18at 06:36; Admin Dose 1 TAB; Start 11/04/18 at 19:00 Miscellaneous Information 1 ea NOTE XX ; Start 11/04/18 at 19:00 Glucose (Glutose) 15 gm Q15M PRN PO DECREASED GLUCOSE; Start 11/04/18 at 19:00 Glucose (Glutose) 22.5 gm Q15M PRN PO DECREASED GLUCOSE; Start 11/04/18 at 19:00 Dextrose (D50w Syringe) 25 ml Q15M PRN IV DECREASED GLUCOSE; Start 11/04/18 at 19:00 Dextrose (D50w Syringe) 50 ml Q15M PRN IV DECREASED GLUCOSE; Start 11/04/18 at 19:00 Glucagon (Glucagen) 1 mg Q15M PRN IM DECREASED GLUCOSE; Start 11/04/18 at 19:00 Glucose (Glutose) 15 gm Q15M PRN BUCCAL DECREASED GLUCOSE; Start 11/04/18 at 19:00 Amlodipine Besylate (Norvasc) 10 mg DAILY PO Last administered on 11/07/18at 08:31; Admin Dose 10 MG; Start 11/05/18 at 00:00 Hydralazine HCl (Apresoline) 10 mg Q4H PRN IV sbp >160; Start 11/05/18 at 12:00 Metformin HCl (Glucophage) 500 mg BID WITH MEALS PO Last administered on 11/07/18at 07:40; Admin Dose 500 MG; Start 11/05/18 at 18:00 Ketorolac Tromethamine (Toradol) 15 mg Q6H PRN IV PAIN/headache Last administered on 11/06/18at 19:28; Admin Dose 15 MG; Start 11/06/18 at 11:30; Stop 11/09/18 at 11:29 Magnesium Sulfate 50 ml @ 25 mls/hr ONCE ONCE IVPB Last administered on 11/07/18at 09:52; Admin Dose 25 MLS/HR; Start 11/07/18 at 09:30; Stop 11/07/18 at 11:29 VTE Prophylaxis Risk score (from Ns)>0 risk: 4 SCD applied (from Ns): Yes Lines/Catheters IV Catheter Type: Merlos in Place: No Assessment/Plan Hospital Course Subjective Patient doing well just complaining of very mild headache still, but appears comfortable Objective Physical exam General: Patient is laying in bed and answers questions appropriately Mentation: Patient is alert and oriented 4, Head: Normocephalic atraumatic Eyes: EOMI, pupils reactive to light Neck: Supple, nontender, midline Respiratory: Clear to auscultation bilaterally Cardiovascular: regular rate, no obvious murmurs Gastrointestinal: non-tender to palpation, bowel sounds heard. Neurological: Moves all extremities spontaneously Skin: No new skin lesions Musculoskeletal: Pain on palpation of feet bilaterally Assessment and plan Syncope, resolving -Unknown cause, patient had a one-time occurrence of syncope in the past due to hypoglycemia, patient is on sulfonylurea however his glucose is within normal limits here. Of note patient has not needed insulin at all and he was on metformin and glipizide at home, hypoglycemia that had resolved before EMS arrived is beginning to look like more of the etiology as he also had this happen in the past. -Patient may be volume depleted, IV hydration given, now discontinued -Urine drug screen and UA negative except for prescribed opiates -Neurology consulted, -MRI, echo, carotid ultrasound noted -CT noted -Orthostatic vitals limited as patient cannot stand Slurred speech -Patient states this is been going on for 3 days before admission, CT and MRI are negative, neurology on board -Monitor closely, patient does not appear to have slurred speech during my evaluation Headache -Patient appears very comfortable however he states that the headache is moderate to severe, will attempt Toradol for now, -Neurology recs to try Tylenol and Toradol before opiates. Questionable seizure -Patient was passed out and bystander did say that he was shaking however this is questionable if true seizure versus another phenomenon such as convulsive syncope -Neurology consulted -Keppra discontinued per neurology recommendations -Ativan as needed Recent lower extremity swelling -Patient has chronic foot pain and stated that recently he had both legs swell up, no history of DVT -Ultrasound venous bilaterally negative for DVT Chronic foot pain -Secondary to fall many years ago, same accident as his back pain -X-ray showing questionable sclerotic lesion -MRI noted, possible remote fracture, follow-up outpatient Acute kidney injury versus chronic kidney disease -Resolved, monitor closely Recent history of osteomyelitis -Patient states that he had a bone infection in the back and recently finished 6 weeks of IV antibiotics at a [facility], he was discharged 2 days before admission Hypertension -Continue home meds Diabetes mellitus -A1c is actually below diabetic levels, I suspect patient is overmedicated, will restart patient on low-dose metformin and monitor closely, will discontinue glipizide from his regimen. Questionable coronary artery disease -Continue baby aspirin as well as other home medications Glaucoma -Continue home drops Active hepatitis C -Untreated, will get hepatitis levels Chronic debility -Patient had a fall from a ladder a couple years ago which is the cause of his chronic back pain as well as chronic foot pain -Wheelchair-bound Anemia -Mild, monitor for now Disposition -Possible rehab placement, DOREEN notified AVELINO HINTON Nov 07, 2018 10:09
[2018-11-07 11:01] VITALS: BP 135/77; PULSE 68; RESP 18
[2018-11-07 15:01] VITALS: BP 127/73; PULSE 73; RESP 18
[2018-11-07] MEDS: KETOROLAC 15 MG INJ IV PRN (16:27)
[2018-11-07 19:31] VITALS: BP 120/69; PULSE 71; RESP 21
[2018-11-07] MEDS: ATORVASTATIN 40 MG TAB PO SCH (21:03)
[2018-11-07] MEDS: LATANOPROST 0.005% 2.5 ML OPH BOTH EYES SCH (21:08)
[2018-11-07 23:36] VITALS: BP 131/71; PULSE 77; RESP 21
[2018-11-08] MEDS: ACCU-CHEK XX SCH (02:00)
[2018-11-08 03:30] VITALS: BP 140/77; PULSE 69; RESP 18
[2018-11-08] MEDS: BRIMONIDINE 0.15% 5 ML OPH BOTH EYES SCH ×3 (06:20→21:35)
[2018-11-08] MEDS: CYCLOBENZAPRINE 10 MG TAB PO SCH ×3 (06:20→21:36)
[2018-11-08 07:05] VITALS: BP 158/78; PULSE 65; RESP 19
[2018-11-08] MEDS: INSULIN ASPART [NOVOLOG] 3 ML PEN SC SCH ×4 (07:49→21:00)
[2018-11-08] MEDS: metFORMIN 500 MG TAB PO SCH ×2 (07:49→18:35)
[2018-11-08] MEDS: FAMOTIDINE 20 MG TAB PO SCH ×2 (08:44→21:36)
[2018-11-08] MEDS: DOCUSATE SODIUM 100 MG CAP PO SCH ×2 (08:44→21:35)
[2018-11-08] MEDS: ASPIRIN (EC) 81 MG TAB PO SCH (08:44)
[2018-11-08] MEDS: TIMOLOL 0.25% 5 ML OPH BOTH EYES SCH ×2 (08:44→21:35)
[2018-11-08] MEDS: traZODone 50 MG TAB PO SCH ×2 (08:44→21:36)
[2018-11-08] MEDS: AMLODIPINE 10 MG TAB PO SCH (08:44)
[2018-11-08] MEDS: ISOSORBIDE MONONITRATE(SR)30 MG TAB PO SCH (08:44)
--- NOTE | 2018-11-08 09:17 | PN ---
Date/Time of Note Date/Time of Note DATE: 11/08/18 TIME: 09:16 Objective Vitals Vital Signs Date Temp Pulse Resp B/P (MAP) Pulse Ox O2 O2 Flow FiO2 Time Delivery Rate 11/08/18 98.0 65 19 158/78 96 07:05 (104) 11/06/18 Room Air 15:20 Intake and Output 11/07/18 11/07/18 11/08/18 1515:00 23:00 07:00 IntakeIntake Total 700 ml 233 ml OutputOutput Total 350 ml 600 ml 650 ml BalanceBalance 350 ml -367 ml -650 ml Results Result Diagram: 11/08/18 0452 11/08/18 0452 Medications Medications Current Medications Aspirin (Halfprin) 81 mg DAILY PO Last administered on 11/08/18 08:44; Admin Dose 81 MG; Start 11/05/18 at 09:00 Atorvastatin Calcium (Lipitor) 40 mg QHS PO Last administered on 11/07/18 21: 03; Admin Dose 40 MG; Start 11/04/18 at 21:00 Brimonidine Tartrate (Alphagan P 0.15%) 1 drop Q8 BOTH EYES Last administered on 11/08/18 06:20; Admin Dose 1 DROP; Start 11/04/18 at 22:00 Cyclobenzaprine HCl (Flexeril) 10 mg Q8 PO Last administered on 11/08/18 06:20; Admin Dose 10 MG; Start 11/04/18 at 22:00 Docusate Sodium (Colace) 100 mg BID PO Last administered on 11/08/18 08:44; Admin Dose 100 MG; Start 11/04/18 at 21:00 Famotidine (Pepcid) 20 mg BID PO Last administered on 11/08/18 08:44; Admin Dose 20 MG; Start 11/04/18 at 21:00 Isosorbide Mononitrate (Imdur) 30 mg DAILY PO Last administered on 11/08/18 08:44; Admin Dose 30 MG; Start 11/05/18 at 09:00 Latanoprost (Xalatan) 1 drop QHS BOTH EYES Last administered on 11/07/18 21:08; Admin Dose 1 DROP; Start 11/04/18 at 21:00 Timolol Maleate (Timoptic 0.25%) 1 drop BID BOTH EYES Last administered on 11/08/18 08:44; Admin Dose 1 DROP; Start 11/04/18 at 21:00 Trazodone HCl (Desyrel) 50 mg BID PO Last administered on 11/08/18at 08:44; Admin Dose 50 MG; Start 11/04/18 at 21:00 IV Flush (NS 3 ml) 3 ml PER PROTOCOL IV ; Start 11/04/18 at 18:30 Ondansetron HCl (Zofran Inj) 4 mg Q6H PRN IV NAUSEA/VOMITING; Start 11/04/18 at 18:30 Acetaminophen (Tylenol Tab) 650 mg Q6H PRN PO .PAIN 1-3 OR TEMP Last administered on 11/05/18at 11:58; Admin Dose 650 MG; Start 11/04/18 at 18:30 Lorazepam (Ativan) 2 mg Q10MIN PRN IV seizures; Start 11/04/18 at 18:30 Diagnostic Test (Pha) (Accu-Chek) 1 ea 02 XX Last administered on 11/05/18at 02:42; Admin Dose 1 EA; Start 11/05/18 at 02:00 Insulin Aspart (Novolog Insulin Pen) NOVOLOG *MILD* ALGORITHM WITH MEALS BEDTIME SC Last administered on 11/05/18at 17:39; Admin Dose 1 UNIT; Start 11/04/18 at 21:00 Acetaminophen/ Hydrocodone Bitart ([place] (10/325)) 1 tab Q4H PRN PO MODERATE PAIN LEVEL 4-6 Last administered on 11/07/18at 22:17; Admin Dose 1 TAB; Start 11/04/18 at 19:00 Miscellaneous Information 1 ea NOTE XX ; Start 11/04/18 at 19:00 Glucose (Glutose) 15 gm Q15M PRN PO DECREASED GLUCOSE; Start 11/04/18 at 19:00 Glucose (Glutose) 22.5 gm Q15M PRN PO DECREASED GLUCOSE; Start 11/04/18 at 19:00 Dextrose (D50w Syringe) 25 ml Q15M PRN IV DECREASED GLUCOSE; Start 11/04/18 at 19:00 Dextrose (D50w Syringe) 50 ml Q15M PRN IV DECREASED GLUCOSE; Start 11/04/18 at 19:00 Glucagon (Glucagen) 1 mg Q15M PRN IM DECREASED GLUCOSE; Start 11/04/18 at 19:00 Glucose (Glutose) 15 gm Q15M PRN BUCCAL DECREASED GLUCOSE; Start 11/04/18 at 19:00 Amlodipine Besylate (Norvasc) 10 mg DAILY PO Last administered on 11/08/18at 08:44; Admin Dose 10 MG; Start 11/05/18 at 00:00 Hydralazine HCl (Apresoline) 10 mg Q4H PRN IV sbp >160; Start 11/05/18 at 12:00 Metformin HCl (Glucophage) 500 mg BID WITH MEALS PO Last administered on 11/08/18at 07:49; Admin Dose 500 MG; Start 11/05/18 at 18:00 Ketorolac Tromethamine (Toradol) 15 mg Q6H PRN IV PAIN/headache Last administered on 11/07/18at 16:27; Admin Dose 15 MG; Start 11/06/18 at 11:30; Stop 11/09/18 at 11:29 VTE Prophylaxis Risk score (from [facility])>0 risk: 5 SCD applied (from [facility]): Yes Lines/Catheters IV Catheter Type: Merlos in Place: No Assessment/Plan Hospital Course Subjective Patient doing well just complaining of very mild headache still, but appears comfortable Objective Physical exam General: Patient is laying in bed and answers questions appropriately Mentation: Patient is alert and oriented 4, Head: Normocephalic atraumatic Eyes: EOMI, pupils reactive to light Neck: Supple, nontender, midline Respiratory: Clear to auscultation bilaterally Cardiovascular: regular rate, no obvious murmurs Gastrointestinal: non-tender to palpation, bowel sounds heard. Neurological: Moves all extremities spontaneously Skin: No new skin lesions Musculoskeletal: Pain on palpation of feet bilaterally Assessment and plan Syncope, resolving -Unknown cause, patient had a one-time occurrence of syncope in the past due to hypoglycemia, patient is on sulfonylurea however his glucose is within normal limits here. Of note patient has not needed insulin at all and he was on metformin and glipizide at home, hypoglycemia that had resolved before EMS arrived is beginning to look like more of the etiology as he also had this happen in the past. -Patient may be volume depleted, IV hydration given, now discontinued -Urine drug screen and UA negative except for prescribed opiates -Neurology consulted, -MRI, echo, carotid ultrasound noted -CT noted -Orthostatic vitals limited as patient cannot stand Slurred speech, resolved -Patient states this is been going on for 3 days before admission, CT and MRI are negative, neurology on board -Monitor closely, patient does not appear to have slurred speech during my evalu ation Headache, very mild -Patient appears very comfortable however he states that the headache is moderate to severe, will attempt Toradol for now, -Neurology recs to try Tylenol and Toradol before opiates. Questionable seizure -Patient was passed out and bystander did say that he was shaking however this is questionable if true seizure versus another phenomenon such as convulsive syncope -Neurology consulted -Keppra discontinued per neurology recommendations -Ativan as needed Recent lower extremity swelling -Patient has chronic foot pain and stated that recently he had both legs swell up, no history of DVT -Ultrasound venous bilaterally negative for DVT Chronic foot pain -Secondary to fall many years ago, same accident as his back pain -X-ray showing questionable sclerotic lesion, so MRI was ordered -MRI noted, possible remote fracture, follow-up outpatient orthopedic surgeon, explained to patient using a hard sole shoe. Acute kidney injury versus chronic kidney disease -Resolved, monitor closely Recent history of osteomyelitis -Patient states that he had a bone infection in the back and recently finished 6 weeks of IV antibiotics at a residential, he was discharged 2 days before admission Hypertension -Continue home meds Diabetes mellitus -A1c is actually below diabetic levels, I suspect patient is overmedicated, will restart patient on low-dose metformin and monitor closely, will discontinue glipizide from his regimen. Questionable coronary artery disease -Continue baby aspirin as well as other home medications Glaucoma -Continue home drops Active hepatitis C -Untreated, will get hepatitis levels Chronic debility -Patient had a fall from a ladder a couple years ago which is the cause of his chronic back pain as well as chronic foot pain -Wheelchair-bound Anemia -Mild, monitor for now Disposition -Possible rehab placement, CM notified AVELINO HINTON Nov 08, 2018 09:17
[2018-11-08 11:39] VITALS: BP 126/72; PULSE 83; RESP 18
[2018-11-08] MEDS: HYDROCODONE/APAP (10/325) TAB PO PRN ×2 (11:46→16:13)
[2018-11-08 12:52] VITALS: BP 122/66; PULSE 79; RESP 18
[2018-11-08] MEDS: KETOROLAC 15 MG INJ IV PRN (13:06)
[2018-11-08 19:40] VITALS: BP 128/66; PULSE 76; RESP 17
[2018-11-08] MEDS: HYDROCODONE/APAP (5/325) TAB PO PRN (20:20)
[2018-11-08] MEDS ORDERED: KETOROLAC 30 MG INJ IV PRN (21:30)
[2018-11-08] MEDS: LATANOPROST 0.005% 2.5 ML OPH BOTH EYES SCH (21:34)
[2018-11-08] MEDS: ATORVASTATIN 40 MG TAB PO SCH (21:36)
[2018-11-08] MEDS: KETOROLAC 30 MG INJ IV PRN (21:41)
[2018-11-09] MEDS: HYDROCODONE/APAP (5/325) TAB PO PRN ×2 (00:32→06:55)
[2018-11-09] MEDS: ACCU-CHEK XX SCH (01:23)
[2018-11-09 01:31] VITALS: BP 131/75; PULSE 79; RESP 18
[2018-11-09] MEDS: CYCLOBENZAPRINE 10 MG TAB PO SCH ×3 (06:52→21:27)
[2018-11-09] MEDS: BRIMONIDINE 0.15% 5 ML OPH BOTH EYES SCH ×3 (06:52→21:27)
[2018-11-09] MEDS: INSULIN ASPART [NOVOLOG] 3 ML PEN SC SCH ×4 (08:00→20:32)
[2018-11-09 08:11] VITALS: BP 126/74; PULSE 69; RESP 20
[2018-11-09] MEDS: metFORMIN 500 MG TAB PO SCH ×2 (08:26→17:30)
[2018-11-09] MEDS: FAMOTIDINE 20 MG TAB PO SCH ×2 (08:26→20:29)
[2018-11-09] MEDS: traZODone 50 MG TAB PO SCH ×2 (08:26→20:28)
[2018-11-09] MEDS: DOCUSATE SODIUM 100 MG CAP PO SCH ×2 (08:26→20:28)
[2018-11-09] MEDS: ASPIRIN (EC) 81 MG TAB PO SCH (08:26)
[2018-11-09] MEDS: AMLODIPINE 10 MG TAB PO SCH (08:27)
[2018-11-09] MEDS: KETOROLAC 30 MG INJ IV PRN ×2 (08:34→16:27)
--- NOTE | 2018-11-09 10:39 | CONS ---
Assessment/Plan Assessment/Plan Assessment/Plan (Recall) 63 M c/ multiple comorbidities, who presents for evaluation of LOC w/ ? shaking c/f seizure.. MIKE + on presentation Convulsive syncope is a consideration.. Epilepsy is less likely. MRI brain is reassuringly negative for acute intracranial pathology, or prior cortically based stroke.. EEG is negative for epileptiform activity. P: Hold Keppra for now Ativan iv prn prolonged seizure or cluster Agree w/ asa/lipitor daily for secondary stroke prevention PT/OT as necessary Other medical management and supportive care per primary Will follow clinically Consultation Date/Type/Reason Admit Date/Time Nov 04, 2018 at 18:10 Type of Consult Neurology Reason for Consultation ? seizure Requesting Provider: AVELINO HINTON Date/Time of Note DATE: 11/09/18 TIME: 10:39 24 HR Interval Summary Free Text/Dictation Continues acute care Exam/Review of Systems Exam Vitals Vital Signs Date Temp Pulse Resp B/P (MAP) Pulse Ox O2 O2 Flow FiO2 Time Delivery Rate 11/09/18 98.1 69 20 126/74 98 08:11 (91) 11/06/18 Room Air 15:20 Intake and Output 11/08/18 11/08/18 11/09/18 1515:00 23:00 07:00 IntakeIntake Total 300 ml 600 ml 240 ml OutputOutput Total 350 ml 700 ml BalanceBalance -50 ml 600 ml -460 ml Results Result Diagram: 11/08/18 0452 11/08/18 0452 Results 24hrs Laboratory Tests Test 11/08/18 11:48 11/08/18 17:29 11/08/18 21:38 11/09/18 08:23 Bedside Glucose 91 104 114 98 Medications Medication Current Medications Aspirin (Halfprin) 81 mg DAILY PO Last administered on 11/09/18at 08:26; Admin Dose 81 MG; Start 11/05/18 at 09:00 Atorvastatin Calcium (Lipitor) 40 mg QHS PO Last administered on 11/08/18at 21:36; Admin Dose 40 MG; Start 11/04/18 at 21:00 Brimonidine Tartrate (Alphagan P 0.15%) 1 drop Q8 BOTH EYES Last administered on 11/09/18at 06:52; Admin Dose 1 DROP; Start 11/04/18 at 22:00 Cyclobenzaprine HCl (Flexeril) 10 mg Q8 PO Last administered on 11/09/18 06:52; Admin Dose 10 MG; Start 11/04/18 at 22:00 Docusate Sodium (Colace) 100 mg BID PO Last administered on 11/09/18 08:26; Admin Dose 100 MG; Start 11/04/18 at 21:00 Famotidine (Pepcid) 20 mg BID PO Last administered on 11/09/18 08:26; Admin Dose 20 MG; Start 11/04/18 at 21:00 Isosorbide Mononitrate (Imdur) 30 mg DAILY PO Last administered on 11/08/18 08:44; Admin Dose 30 MG; Start 11/05/18 at 09:00 Latanoprost (Xalatan) 1 drop QHS BOTH EYES Last administered on 11/08/18 21:34; Admin Dose 1 DROP; Start 11/04/18 at 21:00 Timolol Maleate (Timoptic 0.25%) 1 drop BID BOTH EYES Last administered on 11/08/18 21:35; Admin Dose 1 DROP; Start 11/04/18 at 21:00 Trazodone HCl (Desyrel) 50 mg BID PO Last administered on 11/09/18 08:26; Admin Dose 50 MG; Start 11/04/18 at 21:00 IV Flush (NS 3 ml) 3 ml PER PROTOCOL IV ; Start 11/04/18 at 18:30 Ondansetron HCl (Zofran Inj) 4 mg Q6H PRN IV NAUSEA/VOMITING; Start 11/04/18 at 18:30 Acetaminophen (Tylenol Tab) 650 mg Q6H PRN PO .PAIN 1-3 OR TEMP Last administered on 11/05/18 11:58; Admin Dose 650 MG; Start 11/04/18 at 18:30 Lorazepam (Ativan) 2 mg Q10MIN PRN IV seizures; Start 11/04/18 at 18:30 Diagnostic Test (Pha) (Accu-Chek) 1 ea 02 XX Last administered on 11/05/18 02:42; Admin Dose 1 EA; Start 11/05/18 at 02:00 Insulin Aspart (Novolog Insulin Pen) NOVOLOG *MILD* ALGORITHM WITH MEALS BEDTIME SC Last administered on 11/05/18 17:39; Admin Dose 1 UNIT; Start 11/04/18 at 21:00 Acetaminophen/ Hydrocodone Bitart ([place] (10/325)) 1 tab Q4H PRN PO MODERATE PAIN LEVEL 4-6 Last administered on 11/08/18at 16:13; Admin Dose 1 TAB; Start 11/04/18 at 19:00 Miscellaneous Information 1 ea NOTE XX ; Start 11/04/18 at 19:00 Glucose (Glutose) 15 gm Q15M PRN PO DECREASED GLUCOSE; Start 11/04/18 at 19:00 Glucose (Glutose) 22.5 gm Q15M PRN PO DECREASED GLUCOSE; Start 11/04/18 at 19:00 Dextrose (D50w Syringe) 25 ml Q15M PRN IV DECREASED GLUCOSE; Start 11/04/18 at 19:00 Dextrose (D50w Syringe) 50 ml Q15M PRN IV DECREASED GLUCOSE; Start 11/04/18 at 19:00 Glucagon (Glucagen) 1 mg Q15M PRN IM DECREASED GLUCOSE; Start 11/04/18 at 19:00 Glucose (Glutose) 15 gm Q15M PRN BUCCAL DECREASED GLUCOSE; Start 11/04/18 at 19:00 Amlodipine Besylate (Norvasc) 10 mg DAILY PO Last administered on 11/09/18at 08:27; Admin Dose 10 MG; Start 11/05/18 at 00:00 Hydralazine HCl (Apresoline) 10 mg Q4H PRN IV sbp >160; Start 11/05/18 at 12:00 Metformin HCl (Glucophage) 500 mg BID WITH MEALS PO Last administered on 11/09/18at 08:26; Admin Dose 500 MG; Start 11/05/18 at 18:00 Acetaminophen/ Hydrocodone Bitart ([place] (5/325)) 2 tab Q4H PRN PO PAIN LEVEL 6-10 Last administered on 11/09/18at 06:55; Admin Dose 2 TAB; Start 11/08/18 at 20:00 Ketorolac Tromethamine (Toradol) 30 mg Q6H PRN IV PAIN/headache Last administered on 11/09/18at 08:34; Admin Dose 30 MG; Start 11/08/18 at 21:30; S top 11/11/18 at 21:29 LEROY SANTANA Nov 09, 2018 10:39
--- NOTE | 2018-11-09 10:49 | PN ---
Date/Time of Note Date/Time of Note DATE: 11/09/18 TIME: 10:49 Assessment/Plan VTE Prophylaxis Risk score (from Nsg)>0 risk: 6 SCD applied (from Nsg): Yes Pharmacological prophylaxis: other Lines/Catheters IV Catheter Type (from Nrsg): Saline Lock Urinary Cath still in place: No Assessment/Plan Assessment/Plan 1. Acute syncope episode, resolved - No further episodes since admission. Possibly from sulfonylurea causing hypoglycemia, however, glucose was normal at time of admission - Neurology consultation appreciate - Imaging results noted 2. Slurred speech, resolved - stroke work up completes and imaging studies negative for acute issues - Neurology input appreciated - speech back to baseline 3. Lower back pain - chronic and adjustments made to pain regime - PT as tolerated 4. LE swelling- improved - Ultrasound venous bilaterally negative for DVT 5. Chronic foot pain - Secondary to fall many years ago, same accident as his back pain - MRI noted, possible remote fracture, follow-up outpatient orthopedic surgeon, explained to patient using a hard sole shoe. 6. Acute kidney injury versus chronic kidney disease - Resolved, monitor closely 7. Recent history of osteomyelitis - completed course of IV antibiotics prior to admission 8. Hypertension - Continue home meds 9. Diabetes mellitus - A1c noted - will only continue metformin at time of discharge 10. Questionable coronary artery disease - Continue baby aspirin 11. Glaucoma - Continue home eye drops 12. Active hepatitis C - will need outpatient follow up 13. Chronic debility - Patient had a fall from a ladder a couple years ago which is the cause of his chronic back pain as well as chronic foot pain - Wheelchair-bound 14. Anemia - Mild, monitor for now 15. Disposition - Pain regime adjusted for better pain control - on board for placement given patient lives alone and may benefit from SNF vs ARU prior to d/c home Result Diagram: 11/08/18 0452 11/08/18 0452 Results 24hrs Laboratory Tests Test 11/08/18 11:48 11/08/18 17:29 11/08/18 21:38 11/09/18 08:23 Bedside Glucose 91 104 114 98 Subjective 24 Hr Interval Summary Free Text/Dictation Patient is complaining of severe pain in left lumbar spine area. No acute overnight events. Exam/Review of Systems Exam Vitals Vital Signs Date Temp Pulse Resp B/P (MAP) Pulse Ox O2 O2 Flow FiO2 Time Delivery Rate 11/09/18 98.1 69 20 126/74 98 08:11 (91) 11/06/18 Room Air 15:20 Intake and Output 11/08/18 11/08/18 11/09/18 1515:00 23:00 07:00 IntakeIntake Total 300 ml 600 ml 240 ml OutputOutput Total 350 ml 700 ml BalanceBalance -50 ml 600 ml -460 ml Exam General: Patient is laying in bed and answers questions appropriately Neck: Supple, nontender, midline Respiratory: Clear to auscultation bilaterally. no wheezing or rhonchi Cardiovascular: regular rate and rhythm, no obvious murmurs Gastrointestinal: soft, non-tender to palpation, nondistended, bowel sounds heard. ext: Moves all extremities spontaneously. tenderness left lumbar area with paraspinal muscle spasm Skin: No new skin lesions Results Results 24hrs Laboratory Tests Test 11/08/18 11:48 11/08/18 17:29 11/08/18 21:38 11/09/18 08:23 Bedside Glucose 91 104 114 98 Medications Medication Current Medications Aspirin (Halfprin) 81 mg DAILY PO Last administered on 11/09/18 08:26; Admin D ose 81 MG; Start 11/05/18 at 09:00 Atorvastatin Calcium (Lipitor) 40 mg QHS PO Last administered on 11/08/18 21:36; Admin Dose 40 MG; Start 11/04/18 at 21:00 Brimonidine Tartrate (Alphagan P 0.15%) 1 drop Q8 BOTH EYES Last administered on 11/09/18 06:52; Admin Dose 1 DROP; Start 11/04/18 at 22:00 Cyclobenzaprine HCl (Flexeril) 10 mg Q8 PO Last administered on 11/09/18 06:52; Admin Dose 10 MG; Start 11/04/18 at 22:00 Docusate Sodium (Colace) 100 mg BID PO Last administered on 11/09/18 08:26; Admin Dose 100 MG; Start 11/04/18 at 21:00 Famotidine (Pepcid) 20 mg BID PO Last administered on 11/09/18 08:26; Admin Dose 20 MG; Start 11/04/18 at 21:00 Isosorbide Mononitrate (Imdur) 30 mg DAILY PO Last administered on 11/08/18 08:44; Admin Dose 30 MG; Start 11/05/18 at 09:00 Latanoprost (Xalatan) 1 drop QHS BOTH EYES Last administered on 11/08/18at 21:34; Admin Dose 1 DROP; Start 11/04/18 at 21:00 Timolol Maleate (Timoptic 0.25%) 1 drop BID BOTH EYES Last administered on 11/08/18at 21:35; Admin Dose 1 DROP; Start 11/04/18 at 21:00 Trazodone HCl (Desyrel) 50 mg BID PO Last administered on 11/09/18at 08:26; Admin Dose 50 MG; Start 11/04/18 at 21:00 IV Flush (NS 3 ml) 3 ml PER PROTOCOL IV ; Start 11/04/18 at 18:30 Ondansetron HCl (Zofran Inj) 4 mg Q6H PRN IV NAUSEA/VOMITING; Start 11/04/18 at 18:30 Acetaminophen (Tylenol Tab) 650 mg Q6H PRN PO .PAIN 1-3 OR TEMP Last administer ed on 11/05/18at 11:58; Admin Dose 650 MG; Start 11/04/18 at 18:30 Lorazepam (Ativan) 2 mg Q10MIN PRN IV seizures; Start 11/04/18 at 18:30 Diagnostic Test (Pha) (Accu-Chek) 1 ea 02 XX Last administered on 11/05/18at 02:42; Admin Dose 1 EA; Start 11/05/18 at 02:00 Insulin Aspart (Novolog Insulin Pen) NOVOLOG *MILD* ALGORITHM WITH MEALS BEDTIME SC Last administered on 11/05/18at 17:39; Admin Dose 1 UNIT; Start 11/04/18 at 21:00 Miscellaneous Information 1 ea NOTE XX ; Start 11/04/18 at 19:00 Glucose (Glutose) 15 gm Q15M PRN PO DECREASED GLUCOSE; Start 11/04/18 at 19:00 Glucose (Glutose) 22.5 gm Q15M PRN PO DECREASED GLUCOSE; Start 11/04/18 at 19:00 Dextrose (D50w Syringe) 25 ml Q15M PRN IV DECREASED GLUCOSE; Start 11/04/18 at 19:00 Dextrose (D50w Syringe) 50 ml Q15M PRN IV DECREASED GLUCOSE; Start 11/04/18 at 19:00 Glucagon (Glucagen) 1 mg Q15M PRN IM DECREASED GLUCOSE; Start 11/04/18 at 19:00 Glucose (Glutose) 15 gm Q15M PRN BUCCAL DECREASED GLUCOSE; Start 11/04/18 at 19:00 Amlodipine Besylate (Norvasc) 10 mg DAILY PO Last administered on 11/09/18at 08:27; Admin Dose 10 MG; Start 11/05/18 at 00:00 Hydralazine HCl (Apresoline) 10 mg Q4H PRN IV sbp >160; Start 11/05/18 at 12:00 Metformin HCl (Glucophage) 500 mg BID WITH MEALS PO Last administered on 11/09/18at 08:26; Admin Dose 500 MG; Start 11/05/18 at 18:00 Ketorolac Tromethamine (Toradol) 30 mg Q6H PRN IV PAIN/headache Last administered on 11/09/18at 08:34; Admin Dose 30 MG; Start 11/08/18 at 21:30; Stop 11/11/18 at 21:29 Lidocaine (Lidoderm) 1 patch DAILY TD ; Start 11/09/18 at 11:00; Status UNV Oxycodone/ Acetaminophen (Percocet (5/ 325)) 1 tab Q4H PRN PO MODERATE PAIN LEVEL 4-6; Start 11/09/18 at 11:00; Status UNV Oxycodone/ Acetaminophen (Endocet (10/ 325)) 1 tab Q4H PRN PO SEVERE PAIN LEVEL 7-10; Start 11/09/18 at 11:00; Status UNV NATHAN PHELPS MD Nov 09, 2018 10:49
[2018-11-09] MEDS: OXYCODONE/ACETAMINOPHEN (10/325) TAB PO PRN ×2 (12:08→20:28)
[2018-11-09] MEDS: TIMOLOL 0.25% 5 ML OPH BOTH EYES SCH ×2 (12:09→20:28)
[2018-11-09] MEDS: LIDOCAINE 5% PATCH TD SCH (12:14)
[2018-11-09 13:26] VITALS: BP 123/70; PULSE 79; RESP 20
[2018-11-09] MEDS: ISOSORBIDE MONONITRATE(SR)30 MG TAB PO SCH (16:26)
[2018-11-09 20:18] VITALS: BP 133/60; PULSE 80; RESP 17
[2018-11-09] MEDS: LATANOPROST 0.005% 2.5 ML OPH BOTH EYES SCH (20:28)
[2018-11-09] MEDS: ATORVASTATIN 40 MG TAB PO SCH (20:28)
[2018-11-10] MEDS: OXYCODONE/ACETAMINOPHEN (10/325) TAB PO PRN ×4 (01:22→20:27)
[2018-11-10 01:26] VITALS: BP 107/69; PULSE 78; RESP 16
[2018-11-10] MEDS: ACCU-CHEK XX SCH (02:00)
[2018-11-10] MEDS: CYCLOBENZAPRINE 10 MG TAB PO SCH ×3 (06:29→22:00)
[2018-11-10] MEDS: BRIMONIDINE 0.15% 5 ML OPH BOTH EYES SCH ×3 (06:29→22:13)
[2018-11-10] MEDS: INSULIN ASPART [NOVOLOG] 3 ML PEN SC SCH ×4 (08:00→20:30)
[2018-11-10 08:05] VITALS: BP 116/62; PULSE 77; RESP 20
[2018-11-10] MEDS: traZODone 50 MG TAB PO SCH ×2 (08:27→20:26)
[2018-11-10] MEDS: FAMOTIDINE 20 MG TAB PO SCH ×2 (08:27→20:27)
[2018-11-10] MEDS: ISOSORBIDE MONONITRATE(SR)30 MG TAB PO SCH (08:27)
[2018-11-10] MEDS: DOCUSATE SODIUM 100 MG CAP PO SCH ×2 (08:28→20:27)
[2018-11-10] MEDS: metFORMIN 500 MG TAB PO SCH ×2 (08:28→18:49)
[2018-11-10] MEDS: AMLODIPINE 10 MG TAB PO SCH (08:28)
[2018-11-10] MEDS: ASPIRIN (EC) 81 MG TAB PO SCH (08:28)
[2018-11-10] MEDS: LIDOCAINE 5% PATCH TD SCH (08:29)
[2018-11-10] MEDS: KETOROLAC 30 MG INJ IV PRN ×3 (08:36→22:14)
[2018-11-10] MEDS: TIMOLOL 0.25% 5 ML OPH BOTH EYES SCH ×2 (08:42→20:27)
[2018-11-10] MEDS: OXYCODONE/ACETAMINOPHEN (5/325) TAB PO PRN (12:55)
[2018-11-10 14:00] VITALS: BP 114/59; PULSE 77; RESP 18
--- NOTE | 2018-11-10 14:18 | PN ---
Date/Time of Note Date/Time of Note DATE: 11/10/18 TIME: 14:13 Assessment/Plan VTE Prophylaxis Risk score (from Ns)>0 risk: 6 SCD applied (from Ns): Yes Pharmacological prophylaxis: NA/contraindicated Pharm contraindication: low risk/ambulating Lines/Catheters IV Catheter Type (from Nrsg): Saline Lock Urinary Cath still in place: No Assessment/Plan Assessment/Plan 1. Acute syncope episode, resolved - No further episodes since admission. - Neurology consultation appreciate - Imaging results noted 2. Slurred speech, resolved - stroke work up completes and imaging studies negative for acute issues - Neurology input appreciated - speech back to baseline 3. Lower back pain - chronic - continue pain control. will increase dose of Flexeril to 20mg - PT as tolerated 4. LE swelling- improved - Ultrasound venous bilaterally negative for DVT 5. Chronic foot pain - Secondary to fall many years ago, same accident as his back pain - MRI noted, possible remote fracture, follow-up outpatient orthopedic surgeon, explained to patient using a hard sole shoe. 6. Acute kidney injury versus chronic kidney disease - Resolved, monitor closely 7. Recent history of osteomyelitis - completed course of IV antibiotics prior to admission 8. Hypertension - Continue home meds 9. Diabetes mellitus - A1c noted - will only continue metformin at time of discharge 10. Questionable coronary artery disease - Continue baby aspirin 11. Glaucoma - Continue home eye drops 12. Active hepatitis C - will need outpatient follow up 13. Chronic debility - Patient had a fall from a ladder a couple years ago which is the cause of his chronic back pain as well as chronic foot pain - Wheelchair-bound 14. Anemia - Mild, monitor for now 15. Disposition - Increased dose of Flexeril to 20mg - CM on board for placement given patient lives alone and will benefit from short term SNF Result Diagram: 11/10/18 0647 11/08/18 0452 Results 24hrs Laboratory Tests Test 11/09/18 17:29 11/09/18 20:32 11/10/18 06:47 11/10/18 07:46 Bedside Glucose 97 110 99 White Blood Count 5.1 Red Blood Count 4.08 L Hemoglobin 10.7 L Hematocrit 34.6 L Mean Corpuscular 84.8 Volume Mean Corpuscular 26.2 L Hemoglobin Mean Corpuscular 30.9 L Hemoglobin Concent Red Cell 13.8 Distribution Width Platelet Count 261 Mean Platelet Volume 9.7 Immature 0.400 Granulocytes % Neutrophils % 57.9 Lymphocytes % 24.0 Monocytes % 15.3 H Eosinophils % 2.2 Basophils % 0.2 Nucleated Red Blood 0.0 Cells % Immature 0.020 Granulocytes # Neutrophils # 3.0 Lymphocytes # 1.2 Monocytes # 0.8 Eosinophils # 0.1 Basophils # 0.0 Nucleated Red Blood 0.0 Cells # Test 11/10/18 12:44 Bedside Glucose 99 Subjective 24 Hr Interval Summary Free Text/Dictation Patient still with pain and states getting minimal relief with lidocaine patch and change to Percocet. Exam/Review of Systems Exam Vitals Vital Signs Date Temp Pulse Resp B/P (MAP) Pulse Ox O2 O2 Flow FiO2 Time Delivery Rate 11/10/18 97.5 77 18 114/59 100 14:00 (77) 11/09/18 Room Air 13:26 Intake and Output 11/09/18 11/09/18 11/10/18 1515:00 23:00 07:00 IntakeIntake Total 960 ml 760 ml OutputOutput Total 1100 ml 1400 ml BalanceBalance -140 ml -640 ml Exam General: Patient is laying in bed and answers questions appropriately Neck: Supple, nontender, midline Respiratory: Clear to auscultation bilaterally. no wheezing or rhonchi Cardiovascular: regular rate and rhythm, no obvious murmurs Gastrointestinal: soft, non-tender to palpation, nondistended, bowel sounds heard. ext: Moves all extremities spontaneously. mild tenderness left lumbar area with paraspinal muscle spasm Skin: No new skin lesions Results Results 24hrs Laboratory Tests Test 11/09/18 17:29 11/09/18 20:32 11/10/18 06:47 11/10/18 07:46 Bedside Glucose 97 110 99 White Blood Count 5.1 Red Blood Count 4.08 L Hemoglobin 10.7 L Hematocrit 34.6 L Mean Corpuscular 84.8 Volume Mean Corpuscular 26.2 L Hemoglobin Mean Corpuscular 30.9 L Hemoglobin Concent Red Cell 13.8 Distribution Width Platelet Count 261 Mean Platelet Volume 9.7 Immature 0.400 Granulocytes % Neutrophils % 57.9 Lymphocytes % 24.0 Monocytes % 15.3 H Eosinophils % 2.2 Basophils % 0.2 Nucleated Red Blood 0.0 Cells % Immature 0.020 Granulocytes # Neutrophils # 3.0 Lymphocytes # 1.2 Monocytes # 0.8 Eosinophils # 0.1 Basophils # 0.0 Nucleated Red Blood 0.0 Cells # Test 11/10/18 12:44 Bedside Glucose 99 Medications Medication Current Medications Aspirin (Halfprin) 81 mg DAILY PO Last administered on 11/10/18 08:28; Admin Dose 81 MG; Start 11/05/18 at 09:00 Atorvastatin Calcium (Lipitor) 40 mg QHS PO Last administered on 11/09/18 20:28; Admin Dose 40 MG; Start 11/04/18 at 21:00 Brimonidine Tartrate (Alphagan P 0.15%) 1 drop Q8 BOTH EYES Last administered on 11/10/18 06:29; Admin Dose 1 DROP; Start 11/04/18 at 22:00 Cyclobenzaprine HCl (Flexeril) 10 mg Q8 PO Last administered on 11/10/18 06:29; Admin Dose 10 MG; Start 11/04/18 at 22:00 Docusate Sodium (Colace) 100 mg BID PO Last administered on 11/10/18 08:28; Admin Dose 100 MG; Start 11/04/18 at 21:00 Famotidine (Pepcid) 20 mg BID PO Last administered on 11/10/18 08:27; Admin Dose 20 MG; Start 11/04/18 at 21:00 Isosorbide Mononitrate (Imdur) 30 mg DAILY PO Last administered on 11/10/18 08:27; Admin Dose 30 MG; Start 11/05/18 at 09:00 Latanoprost (Xalatan) 1 drop QHS BOTH EYES Last administered on 11/09/18 20:28; Admin Dose 1 DROP; Start 11/04/18 at 21:00 Timolol Maleate (Timoptic 0.25%) 1 drop BID BOTH EYES Last administered on 11/10/18 08:42; Admin Dose 1 DROP; Start 11/04/18 at 21:00 Trazodone HCl (Desyrel) 50 mg BID PO Last administered on 11/10/18 08:27; Admin Dose 50 MG; Start 11/04/18 at 21:00 IV Flush (NS 3 ml) 3 ml PER PROTOCOL IV ; Start 11/04/18 at 18:30 Ondansetron HCl (Zofran Inj) 4 mg Q6H PRN IV NAUSEA/VOMITING; Start 11/04/18 at 18:30 Acetaminophen (Tylenol Tab) 650 mg Q6H PRN PO .PAIN 1-3 OR TEMP Last administered on 11/05/18at 11:58; Admin Dose 650 MG; Start 11/04/18 at 18:30 Lorazepam (Ativan) 2 mg Q10MIN PRN IV seizures; Start 11/04/18 at 18:30 Diagnostic Test (Pha) (Accu-Chek) 1 ea 02 XX Last administered on 11/05/18at 02:42; Admin Dose 1 EA; Start 11/05/18 at 02:00 Insulin Aspart (Novolog Insulin Pen) NOVOLOG *MILD* ALGORITHM WITH MEALS BEDTIM E SC Last administered on 11/05/18at 17:39; Admin Dose 1 UNIT; Start 11/04/18 at 21:00 Miscellaneous Information 1 ea NOTE XX ; Start 11/04/18 at 19:00 Glucose (Glutose) 15 gm Q15M PRN PO DECREASED GLUCOSE; Start 11/04/18 at 19:00 Glucose (Glutose) 22.5 gm Q15M PRN PO DECREASED GLUCOSE; Start 11/04/18 at 19:00 Dextrose (D50w Syringe) 25 ml Q15M PRN IV DECREASED GLUCOSE; Start 11/04/18 at 19:00 Dextrose (D50w Syringe) 50 ml Q15M PRN IV DECREASED GLUCOSE; Start 11/04/18 at 19:00 Glucagon (Glucagen) 1 mg Q15M PRN IM DECREASED GLUCOSE; Start 11/04/18 at 19:00 Glucose (Glutose) 15 gm Q15M PRN BUCCAL DECREASED GLUCOSE; Start 11/04/18 at 19:00 Amlodipine Besylate (Norvasc) 10 mg DAILY PO Last administered on 11/10/18at 08:28; Admin Dose 10 MG; Start 11/05/18 at 00:00 Hydralazine HCl (Apresoline) 10 mg Q4H PRN IV sbp >160; Start 11/05/18 at 12:00 Metformin HCl (Glucophage) 500 mg BID WITH MEALS PO Last administered on 11/10/18 08:28; Admin Dose 500 MG; Start 11/05/18 at 18:00 Ketorolac Tromethamine (Toradol) 30 mg Q6H PRN IV PAIN/headache Last administered on 11/10/18 08:36; Admin Dose 30 MG; Start 11/08/18 at 21:30; Stop 11/11/18 at 21:29 Lidocaine (Lidoderm) 1 patch DAILY TD Last administered on 11/10/18at 08:29; Admin Dose 1 PATCH; Start 11/09/18 at 11:00 Oxycodone/ Acetaminophen (Percocet (5/ 325)) 1 tab Q4H PRN PO MODERATE PAIN LEVEL 4-6 Last administered on 11/10/18at 12:55; Admin Dose 1 TAB; Start 11/09/18 at 11:00 Oxycodone/ Acetaminophen (Endocet (10/ 325)) 1 tab Q4H PRN PO SEVERE PAIN LEVEL 7-10 Last administered on 11/10/18at 06:30; Admin Dose 1 TAB; Start 11/09/18 at 11:00 NATHAN PHELPS MD Nov 10, 2018 14:18
[2018-11-10 19:58] VITALS: BP 115/69; PULSE 76; RESP 20
[2018-11-10] MEDS: ATORVASTATIN 40 MG TAB PO SCH (20:26)
[2018-11-10] MEDS: LATANOPROST 0.005% 2.5 ML OPH BOTH EYES SCH (20:27)
[2018-11-11 01:24] VITALS: BP 117/65; PULSE 75; RESP 18
[2018-11-11] MEDS: BRIMONIDINE 0.15% 5 ML OPH BOTH EYES SCH ×3 (06:04→20:17)
[2018-11-11] MEDS: CYCLOBENZAPRINE 10 MG TAB PO SCH ×3 (06:04→20:17)
[2018-11-11] MEDS: INSULIN ASPART [NOVOLOG] 3 ML PEN SC SCH ×4 (08:00→20:55)
[2018-11-11 08:09] VITALS: BP 151/76; PULSE 72; RESP 20
[2018-11-11] MEDS: traZODone 50 MG TAB PO SCH ×2 (08:38→20:17)
[2018-11-11] MEDS: FAMOTIDINE 20 MG TAB PO SCH ×2 (08:39→21:50)
[2018-11-11] MEDS: metFORMIN 500 MG TAB PO SCH ×2 (08:39→17:48)
[2018-11-11] MEDS: ASPIRIN (EC) 81 MG TAB PO SCH (08:39)
[2018-11-11] MEDS: ISOSORBIDE MONONITRATE(SR)30 MG TAB PO SCH (08:39)
[2018-11-11] MEDS: DOCUSATE SODIUM 100 MG CAP PO SCH ×2 (08:39→20:16)
[2018-11-11] MEDS: AMLODIPINE 10 MG TAB PO SCH (08:39)
[2018-11-11] MEDS: LIDOCAINE 5% PATCH TD SCH (08:40)
[2018-11-11] MEDS: TIMOLOL 0.25% 5 ML OPH BOTH EYES SCH ×2 (08:40→20:02)
[2018-11-11] MEDS: OXYCODONE/ACETAMINOPHEN (10/325) TAB PO PRN ×3 (09:00→17:51)
[2018-11-11] MEDS: KETOROLAC 30 MG INJ IV PRN ×2 (11:44→19:59)
[2018-11-11 13:41] VITALS: BP 128/75; PULSE 78; RESP 18
--- NOTE | 2018-11-11 14:14 | PN ---
Date/Time of Note Date/Time of Note DATE: 11/11/18 TIME: 14:04 Assessment/Plan VTE Prophylaxis Risk score (from Ns)>0 risk: 3 SCD applied (from Ns): Yes Pharmacological prophylaxis: other Lines/Catheters IV Catheter Type (from Nrsg): Saline Lock Urinary Cath still in place: No Assessment/Plan Assessment/Plan 1. Acute syncope episode, resolved - No further episodes since admission. - Neurology consultation appreciate - Imaging results noted 2. Slurred speech, resolved - stroke work up completes and imaging studies negative for acute issues - Neurology input appreciated 3. Lower back pain - chronic - continue pain control - PT as tolerated 4. LE swelling- improved - Ultrasound venous bilaterally negative for DVT 5. Chronic foot pain - Secondary to fall many years ago, same accident as his back pain - MRI noted, possible remote fracture, follow-up outpatient orthopedic surgeon, explained to patient using a hard sole shoe. 6. Acute kidney injury versus chronic kidney disease - Resolved, monitor closely 7. Recent history of osteomyelitis - completed course of IV antibiotics prior to admission 8. Hypertension - Continue home meds 9. Diabetes mellitus - A1c noted - will only continue metformin at time of discharge 10. Questionable coronary artery disease - Continue baby aspirin 11. Glaucoma - Continue home eye drops 12. Active hepatitis C - will need outpatient follow up 13. Chronic debility - Patient had a fall from a ladder a couple years ago which is the cause of his chronic back pain as well as chronic foot pain - Wheelchair-bound 14. Anemia - Mild, monitor for now 15. Disposition - Discussed with patient discharge planning. Would like to discuss with daughter. CM aware Result Diagram: 11/11/18 0518 11/08/18 0452 Results 24hrs Laboratory Tests Test 11/10/18 17:42 11/10/18 20:28 11/11/18 05:18 11/11/18 08:33 Bedside Glucose 109 151 112 White Blood Count 5.0 Red Blood Count 4.04 L Hemoglobin 10.6 L Hematocrit 34.6 L Mean Corpuscular 85.6 Volume Mean Corpuscular 26.2 L Hemoglobin Mean Corpuscular 30.6 L Hemoglobin Concent Red Cell 13.8 Distribution Width Platelet Count 241 Mean Platelet Volume 10.5 H Immature 0.200 Granulocytes % Neutrophils % 56.6 Lymphocytes % 24.0 Monocytes % 16.6 H Eosinophils % 2.2 Basophils % 0.4 Nucleated Red Blood 0.0 Cells % Immature 0.010 Granulocytes # Neutrophils # 2.8 Lymphocytes # 1.2 Monocytes # 0.8 Eosinophils # 0.1 Basophils # 0.0 Nucleated Red Blood 0.0 Cells # Test 11/11/18 13:30 Bedside Glucose 110 Subjective 24 Hr Interval Summary Free Text/Dictation Patient is doing well and would like to talk to daughter regarding SNF placement vs HHPT. Still with pain but tolerable. Exam/Review of Systems Exam Vitals Vital Signs Date Temp Pulse Resp B/P (MAP) Pulse Ox O2 O2 Flow FiO2 Time Delivery Rate 11/11/18 97.5 78 18 128/75 98 13:41 (92) 11/09/18 Room Air 13:26 Intake and Output 11/10/18 11/10/18 11/11/18 1515:00 23:00 07:00 IntakeIntake Total 1480 ml 720 ml OutputOutput Total 2600 ml 900 ml 600 ml BalanceBalance -1120 ml -180 ml -600 ml Exam General: Patient is laying in bed and answers questions appropriately Neck: Supple, nontender, midline Respiratory: Clear to auscultation bilaterally. no wheezing or rhonchi Cardiovascular: regular rate and rhythm, no obvious murmurs Gastrointestinal: soft, non-tender to palpation, nondistended, bowel sounds heard. ext: Moves all extremities spontaneously. mild tenderness left lumbar area with paraspinal muscle spasm Skin: No new skin lesions Results Results 24hrs Laboratory Tests Test 11/10/18 17:42 11/10/18 20:28 11/11/18 05:18 11/11/18 08:33 Bedside Glucose 109 151 112 White Blood Count 5.0 Red Blood Count 4.04 L Hemoglobin 10.6 L Hematocrit 34.6 L Mean Corpuscular 85.6 Volume Mean Corpuscular 26.2 L Hemoglobin Mean Corpuscular 30.6 L Hemoglobin Concent Red Cell 13.8 Distribution Width Platelet Count 241 Mean Platelet Volume 10.5 H Immature 0.200 Granulocytes % Neutrophils % 56.6 Lymphocytes % 24.0 Monocytes % 16.6 H Eosinophils % 2.2 Basophils % 0.4 Nucleated Red Blood 0.0 Cells % Immature 0.010 Granulocytes # Neutrophils # 2.8 Lymphocytes # 1.2 Monocytes # 0.8 Eosinophils # 0.1 Basophils # 0.0 Nucleated Red Blood 0.0 Cells # Test 11/11/18 13:30 Bedside Glucose 110 Medications Medication Current Medications Aspirin (Halfprin) 81 mg DAILY PO Last administered on 11/11/18 08:39; Admin Dose 81 MG; Start 11/05/18 at 09:00 Atorvastatin Calcium (Lipitor) 40 mg QHS PO Last administered on 11/10/18 20:26; Admin Dose 40 MG; Start 11/04/18 at 21:00 Brimonidine Tartrate (Alphagan P 0.15%) 1 drop Q8 BOTH EYES Last administered on 11/11/18 13:33; Admin Dose 1 DROP; Start 11/04/18 at 22:00 Docusate Sodium (Colace) 100 mg BID PO Last administered on 11/11/18 08:39; Admin Dose 100 MG; Start 11/04/18 at 21:00 Famotidine (Pepcid) 20 mg BID PO Last administered on 11/11/18 08:39; Admin Dose 20 MG; Start 11/04/18 at 21:00 Isosorbide Mononitrate (Imdur) 30 mg DAILY PO Last administered on 11/11/18 08:39; Admin Dose 30 MG; Start 11/05/18 at 09:00 Latanoprost (Xalatan) 1 drop QHS BOTH EYES Last administered on 11/10/18 20:27; Admin Dose 1 DROP; Start 11/04/18 at 21:00 Timolol Maleate (Timoptic 0.25%) 1 drop BID BOTH EYES Last administered on 11/11/18 08:40; Admin Dose 1 DROP; Start 11/04/18 at 21:00 Trazodone HCl (Desyrel) 50 mg BID PO Last administered on 11/11/18 08:38; Admin Dose 50 MG; Start 11/04/18 at 21:00 IV Flush (NS 3 ml) 3 ml PER PROTOCOL IV ; Start 11/04/18 at 18:30 Ondansetron HCl (Zofran Inj) 4 mg Q6H PRN IV NAUSEA/VOMITING; Start 11/04/18 at 18:30 Acetaminophen (Tylenol Tab) 650 mg Q6H PRN PO .PAIN 1-3 OR TEMP Last administered on 11/05/18 11:58; Admin Dose 650 MG; Start 11/04/18 at 18:30 Lorazepam (Ativan) 2 mg Q10MIN PRN IV seizures; Start 11/04/18 at 18:30 Insulin Aspart (Novolog Insulin Pen) NOVOLOG *MILD* ALGORITHM WITH MEALS BEDTIME SC Last administered on 11/05/18at 17:39; Admin Dose 1 UNIT; Start 11/04/18 at 21:00 Miscellaneous Information 1 ea NOTE XX ; Start 11/04/18 at 19:00 Glucose (Glutose) 15 gm Q15M PRN PO DECREASED GLUCOSE; Start 11/04/18 at 19:00 Glucose (Glutose) 22.5 gm Q15M PRN PO DECREASED GLUCOSE; Start 11/04/18 at 19:00 Dextrose (D50w Syringe) 25 ml Q15M PRN IV DECREASED GLUCOSE; Start 11/04/18 at 19:00 Dextrose (D50w Syringe) 50 ml Q15M PRN IV DECREASED GLUCOSE; Start 11/04/18 at 19:00 Glucagon (Glucagen) 1 mg Q15M PRN IM DECREASED GLUCOSE; Start 11/04/18 at 19:00 Glucose (Glutose) 15 gm Q15M PRN BUCCAL DECREASED GLUCOSE; Start 11/04/18 at 19:00 Amlodipine Besylate (Norvasc) 10 mg DAILY PO Last administered on 11/11/18 08:39; Admin Dose 10 MG; Start 11/05/18 at 00:00 Hydralazine HCl (Apresoline) 10 mg Q4H PRN IV sbp >160; Start 11/05/18 at 12:00 Metformin HCl (Glucophage) 500 mg BID WITH MEALS PO Last administered on 11/11/18 08:39; Admin Dose 500 MG; Start 11/05/18 at 18:00 Ketorolac Tromethamine (Toradol) 30 mg Q6H PRN IV PAIN/headache Last administered on 11/11/18at 11:44; Admin Dose 30 MG; Start 11/08/18 at 21:30; Stop 11/11/18 at 21:29 Lidocaine (Lidoderm) 1 patch DAILY TD Last administered on 11/11/18 08:40; Admin Dose 1 PATCH; Start 11/09/18 at 11:00 Oxycodone/ Acetaminophen (Percocet (5/ 325)) 1 tab Q4H PRN PO MODERATE PAIN LEVEL 4-6 Last administered on 11/10/18 12:55; Admin Dose 1 TAB; Start 11/09/18 at 11:00 Oxycodone/ Acetaminophen (Endocet (10/ 325)) 1 tab Q4H PRN PO SEVERE PAIN LEVEL 7-10 Last administered on 11/11/18 13:37; Admin Dose 1 TAB; Start 11/09/18 at 11:00 Cyclobenzaprine HCl (Flexeril) 10 mg Q8 PO Last administered on 11/11/18 13:37; Admin Dose 10 MG; Start 11/10/18 at 15:30 NATHAN PHELPS MD Nov 11, 2018 14:14
[2018-11-11 20:06] VITALS: BP 131/73; PULSE 80; RESP 18
[2018-11-11] MEDS: LATANOPROST 0.005% 2.5 ML OPH BOTH EYES SCH (20:17)
[2018-11-11] MEDS: ATORVASTATIN 40 MG TAB PO SCH (20:17)
[2018-11-12 01:14] VITALS: BP 135/66; PULSE 76; RESP 20
[2018-11-12] MEDS: CYCLOBENZAPRINE 10 MG TAB PO SCH ×3 (06:25→22:01)
[2018-11-12] MEDS: OXYCODONE/ACETAMINOPHEN (5/325) TAB PO PRN (06:25)
[2018-11-12] MEDS: BRIMONIDINE 0.15% 5 ML OPH BOTH EYES SCH ×3 (06:25→22:01)
[2018-11-12] MEDS: INSULIN ASPART [NOVOLOG] 3 ML PEN SC SCH ×4 (08:00→21:00)
[2018-11-12 08:05] VITALS: BP 165/87; PULSE 72; RESP 18
[2018-11-12] MEDS: FAMOTIDINE 20 MG TAB PO SCH ×2 (08:14→22:01)
[2018-11-12] MEDS: DOCUSATE SODIUM 100 MG CAP PO SCH ×2 (08:14→22:01)
[2018-11-12] MEDS: ASPIRIN (EC) 81 MG TAB PO SCH (08:14)
[2018-11-12] MEDS: ISOSORBIDE MONONITRATE(SR)30 MG TAB PO SCH (08:15)
[2018-11-12] MEDS: metFORMIN 500 MG TAB PO SCH ×2 (08:15→18:17)
[2018-11-12] MEDS: traZODone 50 MG TAB PO SCH ×2 (08:16→22:01)
[2018-11-12] MEDS: AMLODIPINE 10 MG TAB PO SCH (08:16)
[2018-11-12] MEDS: LIDOCAINE 5% PATCH TD SCH (08:16)
[2018-11-12] MEDS: TIMOLOL 0.25% 5 ML OPH BOTH EYES SCH ×2 (09:56→22:02)
[2018-11-12] MEDS: KETOROLAC 30 MG INJ IV PRN ×3 (10:00→22:00)
[2018-11-12] MEDS: OXYCODONE/ACETAMINOPHEN (10/325) TAB PO PRN ×4 (10:55→22:00)
[2018-11-12 13:32] VITALS: BP 124/73; PULSE 88; RESP 18
--- NOTE | 2018-11-12 14:39 | PN ---
Date/Time of Note Date/Time of Note DATE: 11/12/18 TIME: 14:31 Assessment/Plan VTE Prophylaxis Risk score (from Nsg)>0 risk: 4 SCD applied (from Nsg): Yes Pharmacological prophylaxis: other Lines/Catheters IV Catheter Type (from Nrsg): Saline Lock Urinary Cath still in place: No Assessment/Plan Assessment/Plan 1. Severe lower back pain - patient states his pain is worse than prior to admission - pain control not effective at this time - Pain management consultation placed for further recommendations - CT L spine performed to assess given patient refused MRI 2. Acute syncope episode, resolved - No further episodes since admission. - Neurology consultation appreciate - Imaging results noted 3. Slurred speech, resolved - stroke work up completes and imaging studies negative for acute issues - Neurology input appreciated 4. LE swelling- improved - Ultrasound venous bilaterally negative for DVT 5. Chronic foot pain - Secondary to fall many years ago, same accident as his back pain 6. Acute kidney injury versus chronic kidney disease - Resolved, monitor closely 7. Recent history of osteomyelitis - completed course of IV antibiotics prior to admission 8. Hypertension - Continue home meds 9. Diabetes mellitus - A1c noted - will only continue metformin at time of discharge 10. Questionable coronary artery disease - Continue baby aspirin 11. Glaucoma - Continue home eye drops 12. Active hepatitis C - will need outpatient follow up 13. Chronic debility - Patient had a fall from a ladder a couple years ago which is the cause of his chronic back pain as well as chronic foot pain - Wheelchair-bound 14. Anemia - Mild, monitor for now 15. Disposition - CT L spine ordered to assess worsening back pain. Pain management consulted for further recommendations Result Diagram: 11/12/18 0521 11/08/18 0452 Results 24hrs Laboratory Tests Test 11/11/18 17:47 11/11/18 20:52 11/12/18 02:28 11/12/18 05:21 Bedside Glucose 122 196 125 White Blood Count 5.3 Red Blood Count 4.11 L Hemoglobin 10.9 L Hematocrit 35.2 L Mean Corpuscular 85.6 Volume Mean Corpuscular 26.5 L Hemoglobin Mean Corpuscular 31.0 L Hemoglobin Concent Red Cell 13.6 Distribution Width Platelet Count 251 Mean Platelet Volume 10.0 Immature 0.400 Granulocytes % Neutrophils % 58.5 Lymphocytes % 21.9 Monocytes % 16.9 H Eosinophils % 1.9 Basophils % 0.4 Nucleated Red Blood 0.0 Cells % Immature 0.020 Granulocytes # Neutrophils # 3.1 Lymphocytes # 1.2 Monocytes # 0.9 Eosinophils # 0.1 Basophils # 0.0 Nucleated Red Blood 0.0 Cells # Test 11/12/18 08:13 11/12/18 12:14 Bedside Glucose 111 106 Subjective 24 Hr Interval Summary Free Text/Dictation Patient complaining of pain in lower back area, worse than home. Denies any new trauma or injury. Exam/Review of Systems Exam Vitals Vital Signs Date Temp Pulse Resp B/P (MAP) Pulse Ox O2 O2 Flow FiO2 Time Delivery Rate 11/12/18 97.8 88 18 124/73 97 13:32 (90) 11/09/18 Room Air 13:26 Intake and Output 11/11/18 11/11/18 11/12/18 1414:59 22:59 06:59 IntakeIntake Total 1000 ml 600 ml OutputOutput Total 2050 ml 675 ml 800 ml BalanceBalance -1050 ml -75 ml -800 ml Exam General: Patient is laying in bed and answers questions appropriately. distress secondary to lower back pain with movement Neck: Supple, nontender, midline Respiratory: Clear to auscultation bilaterally. no wheezing or rhonchi Cardiovascular: regular rate and rhythm, no obvious murmurs Gastrointestinal: soft, non-tender to palpation, nondistended, bowel sounds heard. ext: Moves all extremities spontaneously. mild tenderness left lumbar area with paraspinal muscle spasm Skin: No new skin lesions Results Results 24hrs Laboratory Tests Test 11/11/18 17:47 11/11/18 20:52 11/12/18 02:28 11/12/18 05:21 Bedside Glucose 122 196 125 White Blood Count 5.3 Red Blood Count 4.11 L Hemoglobin 10.9 L Hematocrit 35.2 L Mean Corpuscular 85.6 Volume Mean Corpuscular 26.5 L Hemoglobin Mean Corpuscular 31.0 L Hemoglobin Concent Red Cell 13.6 Distribution Width Platelet Count 251 Mean Platelet Volume 10.0 Immature 0.400 Granulocytes % Neutrophils % 58.5 Lymphocytes % 21.9 Monocytes % 16.9 H Eosinophils % 1.9 Basophils % 0.4 Nucleated Red Blood 0.0 Cells % Immature 0.020 Granulocytes # Neutrophils # 3.1 Lymphocytes # 1.2 Monocytes # 0.9 Eosinophils # 0.1 Basophils # 0.0 Nucleated Red Blood 0.0 Cells # Test 11/12/18 08:13 11/12/18 12:14 Bedside Glucose 111 106 Medications Medication Current Medications Aspirin (Halfprin) 81 mg DAILY PO Last administered on 11/12/18 08:14; Admin Dose 81 MG; Start 11/05/18 at 09:00 Atorvastatin Calcium (Lipitor) 40 mg QHS PO Last administered on 11/11/18 20:17; Admin Dose 40 MG; Start 11/04/18 at 21:00 Brimonidine Tartrate (Alphagan P 0.15%) 1 drop Q8 BOTH EYES Last administered on 11/12/18 14:08; Admin Dose 1 DROP; Start 11/04/18 at 22:00 Docusate Sodium (Colace) 100 mg BID PO Last administered on 11/12/18 08:14; Admin Dose 100 MG; Start 11/04/18 at 21:00 Famotidine (Pepcid) 20 mg BID PO Last administered on 11/12/18 08:14; Admin Dose 20 MG; Start 11/04/18 at 21:00 Isosorbide Mononitrate (Imdur) 30 mg DAILY PO Last administered on 11/12/18 08:15; Admin Dose 30 MG; Start 11/05/18 at 09:00 Latanoprost (Xalatan) 1 drop QHS BOTH EYES Last administered on 11/11/18 20:17; Admin Dose 1 DROP; Start 11/04/18 at 21:00 Timolol Maleate (Timoptic 0.25%) 1 drop BID BOTH EYES Last administered on 11/12/18 09:56; Admin Dose 1 DROP; Start 11/04/18 at 21:00 Trazodone HCl (Desyrel) 50 mg BID PO Last administered on 11/12/18 08:16; Admin Dose 50 MG; Start 11/04/18 at 21:00 IV Flush (NS 3 ml) 3 ml PER PROTOCOL IV ; Start 11/04/18 at 18:30 Ondansetron HCl (Zofran Inj) 4 mg Q6H PRN IV NAUSEA/VOMITING; Start 11/04/18 at 18:30 Acetaminophen (Tylenol Tab) 650 mg Q6H PRN PO .PAIN 1-3 OR TEMP Last administered on 11/05/18at 11:58; Admin Dose 650 MG; Start 11/04/18 at 18:30 Lorazepam (Ativan) 2 mg Q10MIN PRN IV seizures; Start 11/04/18 at 18:30 Insulin Aspart (Novolog Insulin Pen) NOVOLOG *MILD* ALGORITHM WITH MEALS BEDTIME SC Last administered on 11/11/18 20:55; Admin Dose 1 UNIT; Start 11/04/18 at 21:00 Miscellaneous Information 1 ea NOTE XX ; Start 11/04/18 at 19:00 Glucose (Glutose) 15 gm Q15M PRN PO DECREASED GLUCOSE; Start 11/04/18 at 19:00 Glucose (Glutose) 22.5 gm Q15M PRN PO DECREASED GLUCOSE; Start 11/04/18 at 19:00 Dextrose (D50w Syringe) 25 ml Q15M PRN IV DECREASED GLUCOSE; Start 11/04/18 at 19:00 Dextrose (D50w Syringe) 50 ml Q15M PRN IV DECREASED GLUCOSE; Start 11/04/18 at 19:00 Glucagon (Glucagen) 1 mg Q15M PRN IM DECREASED GLUCOSE; Start 11/04/18 at 19:00 Glucose (Glutose) 15 gm Q15M PRN BUCCAL DECREASED GLUCOSE; Start 11/04/18 at 19:00 Amlodipine Besylate (Norvasc) 10 mg DAILY PO Last administered on 11/12/18at 08:16; Admin Dose 10 MG; Start 11/05/18 at 00:00 Hydralazine HCl (Apresoline) 10 mg Q4H PRN IV sbp >160; Start 11/05/18 at 12:00 Metformin HCl (Glucophage) 500 mg BID WITH MEALS PO Last administered on 11/12/18at 08:15; Admin Dose 500 MG; Start 11/05/18 at 18:00 Lidocaine (Lidoderm) 1 patch DAILY TD Last administered on 11/12/18 08:16; Admin Dose 1 PATCH; Start 11/09/18 at 11:00 Oxycodone/ Acetaminophen (Percocet (5/ 325)) 1 tab Q4H PRN PO MODERATE PAIN LEVEL 4-6 Last administered on 11/12/18 06:25; Admin Dose 1 TAB; Start 11/09/18 at 11:00 Oxycodone/ Acetaminophen (Endocet (10/ 325)) 1 tab Q4H PRN PO SEVERE PAIN LEVEL 7-10 Last administered on 11/12/18 14:08; Admin Dose 1 TAB; Start 11/09/18 at 11:00 Cyclobenzaprine HCl (Flexeril) 10 mg Q8 PO Last administered on 11/12/18 14:07; Admin Dose 10 MG; Start 11/10/18 at 15:30 Ketorolac Tromethamine (Toradol) 30 mg Q6H PRN IV PAIN LEVEL 1-3 Last administered on 11/12/18at 10:00; Admin Dose 30 MG; Start 11/12/18 at 07:00; Stop 11/15/18 at 06:59 NATHAN PHELPS MD Nov 12, 2018 14:39
[2018-11-12 20:30] VITALS: BP 158/82; PULSE 85; RESP 18
[2018-11-12] MEDS: ATORVASTATIN 40 MG TAB PO SCH (22:01)
[2018-11-12] MEDS: LATANOPROST 0.005% 2.5 ML OPH BOTH EYES SCH (22:01)
[2018-11-13 02:00] VITALS: BP 137/62; PULSE 82; RESP 18
[2018-11-13] MEDS: OXYCODONE/ACETAMINOPHEN (10/325) TAB PO PRN ×2 (02:09→06:17)
[2018-11-13] MEDS: CYCLOBENZAPRINE 10 MG TAB PO SCH ×3 (06:17→21:43)
[2018-11-13] MEDS: KETOROLAC 30 MG INJ IV PRN (06:17)
[2018-11-13] MEDS: BRIMONIDINE 0.15% 5 ML OPH BOTH EYES SCH ×3 (06:19→21:46)
--- NOTE | 2018-11-13 07:22 | CONS ---
Assessment/Plan Assessment/Plan Assessment/Plan (Daily) Low back pain is setting up a prior history of osteomyelitis but incomplete databases, unreliable history from patient. Currently on Percocet which I agree with that this time would recommend against the use of morphine or Dilaudid until a diagnosis is definitively made and recommend against the use of tramadol secondary history of Questionable seizure activity. Syncopal episode further workup is being completed Syncopal episode slurred speech may be related to prior stroke workup currently process Acute kidney injury Past medical history of osteomyelitis CT scan consistent with the situs maybe all findings Untreated hepatitis C This time I will continue or just Percocet withhold use of allotted morphine and ultrasound is all tram blows the seizure threshold conservative use of opioid secondary patient has mental status changes baseline unknown continue with conservative treatment for pain control. Agree with current pain management IMPRESSION: 1. Severe disc narrowing and extensive endplate irregularity at both L4-5 and L5-S1 raises concern for chronic diskitis and osteomyelitis at these levels for which further evaluation with MRI of the lumbar spine without with gadolinium is recommended. 2. Additional osteophyte and disc material at L4-5 and L5-S1 contributes to severe bilateral foraminal stenosis at these levels with epidural fat deposition palpated contribute to mild central canal narrowing. MRI will help exclude the possibility of anterior epidural phlegmon. 3. Chronic-appearing mild anterior superior L3 endplate compression deformity. 4. Annular disc bulging at L2-3 and L3-4 contributing to minimal foraminal stenosis without significant central canal narrowing. Consultation Date/Type/Reason Admit Date/Time Nov 04, 2018 at 18:10 Date/Time of Note DATE: 11/13/18 TIME: 07:20 Hx of Present Illness This is a 63-year-old gentleman with the poor historian I am asked to see and pain management consultation. According to patient and medical records taken from the emergency room patient who is wheelchair-bound and has a recent past medical history of CVA versus TIA was found passed out in his wheelchair. Patient is a amnestic to any recent events. Patient has a significant recent past medical history of osteomyelitis of his summer lumbar sacral spine with the six week course of IV antibiotics. ER records and hospitalist note document the fact that patient has had no warning signs prior to the onset of his lumbar sacral spine discomfort. He said no other systemic symptoms in addition. Other comorbid medical problems including history of hypertension glaucoma hepatitis C dyslipidemia. non reliable historian Past Medical History Medical History: diabetes, high cholesterol, other (glaucoma) Home Meds Reported Medications Cyclobenzaprine Hcl* (Cyclobenzaprine Hcl*) 10 Mg Tablet, 10 MG PO Q8, #60 TAB 11/04/18 Diphenhydramine Hcl (Banophen) 25 Mg Capsule, 25 MG PO DAILY, CAP 11/04/18 Atorvastatin* (Atorvastatin*) 40 Mg Tablet, 40 MG PO QHS, #30 TAB 11/04/18 Aspirin* (Aspirin* EC) 81 Mg Tablet.dr, 81 MG PO DAILY, TAB 11/04/18 Hydrocodone/Acetaminophen ([place] 10-325 Tablet) 1 Each Tablet, 1 EACH PO Q8H PRN for NEEDED, TAB 11/04/18 Brimonidine Tartrate* (Brimonidine Tartrate*) 0.15%-10ML Drop Opht, 1 DROP BOTH EYES Q8, #1 EA 11/04/18 Trazodone Hcl* (Desyrel*) 50 Mg Tab, 50 MG PO BID, #60 TAB 11/04/18 Metformin Hcl* (Metformin Hcl*) 1,000 Mg Tablet, 1000 MG PO WITH BREAKFAST DINNE, #60 TAB 11/04/18 Latanoprost (Latanoprost) 2.5 Ml Drops, 1 DROP BOTH EYES QHS, #1 BOTTLE 11/04/18 Isosorbide Mononitrate* (Isosorbide Mononitrate*) 30 Mg Tab.er.24h, 30 MG PO DAILY, TAB 11/04/18 Amlodipine Besylate* (Amlodipine Besylate*) 10 Mg Tablet, 10 MG PO DAILY, #30 TAB 11/04/18 Famotidine* (Famotidine*) 20 Mg Tablet, 20 MG PO BID, #60 TAB 11/04/18 Timolol Maleate* (Timolol Maleate* Ophth) 0.25%-15ml Opht, 1 DROP BOTH EYES BID, #1 EA 11/04/18 Docusate Sodium* (Colace*) 100 Mg Capsule, 100 MG PO BID, #60 CAP 11/04/18 Glyburide* (Glyburide*) 5 Mg Tablet, 5 MG PO BID, #60 TAB 11/04/18 Medications Current Medications Aspirin (Halfprin) 81 mg DAILY PO Last administered on 11/12/18 08:14; Admin Dose 81 MG; Start 11/05/18 at 09:00 Atorvastatin Calcium (Lipitor) 40 mg QHS PO Last administered on 11/12/18 22:01; Admin Dose 40 MG; Start 11/04/18 at 21:00 Brimonidine Tartrate (Alphagan P 0.15%) 1 drop Q8 BOTH EYES Last administered on 11/13/18 06:19; Admin Dose 1 DROP; Start 11/04/18 at 22:00 Docusate Sodium (Colace) 100 mg BID PO Last administered on 11/12/18 22:01; Admin Dose 100 MG; Start 11/04/18 at 21:00 Famotidine (Pepcid) 20 mg BID PO Last administered on 11/12/18 22:01; Admin Dose 20 MG; Start 11/04/18 at 21:00 Isosorbide Mononitrate (Imdur) 30 mg DAILY PO Last administered on 11/12/18 08:15; Admin Dose 30 MG; Start 11/05/18 at 09:00 Latanoprost (Xalatan) 1 drop QHS BOTH EYES Last administered on 11/12/18 22:01; Admin Dose 1 DROP; Start 11/04/18 at 21:00 Timolol Maleate (Timoptic 0.25%) 1 drop BID BOTH EYES Last administered on 11/12/18 22:02; Admin Dose 1 DROP; Start 11/04/18 at 21:00 Trazodone HCl (Desyrel) 50 mg BID PO Last administered on 11/12/18 22:01; Admin Dose 50 MG; Start 11/04/18 at 21:00 IV Flush (NS 3 ml) 3 ml PER PROTOCOL IV ; Start 11/04/18 at 18:30 Ondansetron HCl (Zofran Inj) 4 mg Q6H PRN IV NAUSEA/VOMITING; Start 11/04/18 at 18:30 Acetaminophen (Tylenol Tab) 650 mg Q6H PRN PO .PAIN 1-3 OR TEMP Last administered on 7/18/19at 11:58; Admin Dose 650 MG; Start 11/04/18 at 18:30 Lorazepam (Ativan) 2 mg Q10MIN PRN IV seizures; Start 11/04/18 at 18:30 Insulin Aspart (Novolog Insulin Pen) NOVOLOG *MILD* ALGORITHM WITH MEALS BEDTI ME SC Last administered on 11/11/18 20:55; Admin Dose 1 UNIT; Start 11/04/18 at 21:00 Miscellaneous Information 1 ea NOTE XX ; Start 11/04/18 at 19:00 Glucose (Glutose) 15 gm Q15M PRN PO DECREASED GLUCOSE; Start 11/04/18 at 19:00 Glucose (Glutose) 22.5 gm Q15M PRN PO DECREASED GLUCOSE; Start 11/04/18 at 19:00 Dextrose (D50w Syringe) 25 ml Q15M PRN IV DECREASED GLUCOSE; Start 11/04/18 at 19:00 Dextrose (D50w Syringe) 50 ml Q15M PRN IV DECREASED GLUCOSE; Start 11/04/18 at 19:00 Glucagon (Glucagen) 1 mg Q15M PRN IM DECREASED GLUCOSE; Start 11/04/18 at 19:00 Glucose (Glutose) 15 gm Q15M PRN BUCCAL DECREASED GLUCOSE; Start 11/04/18 at 19:00 Amlodipine Besylate (Norvasc) 10 mg DAILY PO Last administered on 11/12/18at 08:16; Admin Dose 10 MG; Start 11/05/18 at 00:00 Hydralazine HCl (Apresoline) 10 mg Q4H PRN IV sbp >160; Start 11/05/18 at 12:00 Metformin HCl (Glucophage) 500 mg BID WITH MEALS PO Last administered on 11/12/18at 18:17; Admin Dose 500 MG; Start 11/05/18 at 18:00 Lidocaine (Lidoderm) 1 patch DAILY TD Last administered on 11/12/18at 08:16; Admin Dose 1 PATCH; Start 11/09/18 at 11:00 Oxycodone/ Acetaminophen (Percocet (5/ 325)) 1 tab Q4H PRN PO MODERATE PAIN LEVEL 4-6 Last administered on 11/12/18at 06:25; Admin Dose 1 TAB; Start 11/09/18 at 11:00 Oxycodone/ Acetaminophen (Endocet (10/ 325)) 1 tab Q4H PRN PO SEVERE PAIN LEVEL 7-10 Last administered on 11/13/18at 06:17; Admin Dose 1 TAB; Start 11/09/18 at 11:00 Cyclobenzaprine HCl (Flexeril) 10 mg Q8 PO Last administered on 11/13/18at 06:17; Admin Dose 10 MG; Start 11/10/18 at 15:30 Ketorolac Tromethamine (Toradol) 30 mg Q6H PRN IV PAIN LEVEL 1-3 Last administered on 11/13/18at 06:17; Admin Dose 30 MG; Start 11/12/18 at 07:00; Stop 11/15/18 at 06:59 Prednisone (Prednisone) 40 mg DAILY PO ; Start 11/13/18 at 09:00 Allergies: Coded Allergies: No Known Allergy (Unverified , 11/04/18) Social History Alcohol Use: other Smoking Status: Former smoker Drug Use: other Exam/Review of Systems Exam Vitals Vital Signs Date Temp Pulse Resp B/P (MAP) Pulse Ox O2 O2 Flow FiO2 Time Delivery Rate 11/12/18 98.1 85 18 158/82 96 20:30 (107) 11/09/18 Room Air 13:26 Intake and Output 11/12/18 11/12/18 11/13/18 1515:00 23:00 07:00 IntakeIntake Total 960 ml 600 ml OutputOutput Total 1100 ml BalanceBalance -140 ml 600 ml Results Result Diagram: 11/12/18 0521 Results 24hrs Laboratory Tests Test 11/12/18 08:13 11/12/18 12:14 11/12/18 17:21 11/12/18 21:59 Bedside Glucose 111 106 119 94 Medications Medication Current Medications Aspirin (Halfprin) 81 mg DAILY PO Last administered on 11/12/18at 08:14; Admin Dose 81 MG; Start 11/05/18 at 09:00 Atorvastatin Calcium (Lipitor) 40 mg QHS PO Last administered on 11/12/18at 22:01; Admin Dose 40 MG; Start 11/04/18 at 21:00 Brimonidine Tartrate (Alphagan P 0.15%) 1 drop Q8 BOTH EYES Last administered on 11/13/18at 06:19; Admin Dose 1 DROP; Start 11/04/18 at 22:00 Docusate Sodium (Colace) 100 mg BID PO Last administered on 11/12/18 22:01; Admin Dose 100 MG; Start 11/04/18 at 21:00 Famotidine (Pepcid) 20 mg BID PO Last administered on 11/12/18 22:01; Admin Dose 20 MG; Start 11/04/18 at 21:00 Isosorbide Mononitrate (Imdur) 30 mg DAILY PO Last administered on 11/12/18 08:15; Admin Dose 30 MG; Start 11/05/18 at 09:00 Latanoprost (Xalatan) 1 drop QHS BOTH EYES Last administered on 11/12/18 22:01; Admin Dose 1 DROP; Start 11/04/18 at 21:00 Timolol Maleate (Timoptic 0.25%) 1 drop BID BOTH EYES Last administered on 11/12/18 22:02; Admin Dose 1 DROP; Start 11/04/18 at 21:00 Trazodone HCl (Desyrel) 50 mg BID PO Last administered on 11/12/18 22:01; Admin Dose 50 MG; Start 11/04/18 at 21:00 IV Flush (NS 3 ml) 3 ml PER PROTOCOL IV ; Start 11/04/18 at 18:30 Ondansetron HCl (Zofran Inj) 4 mg Q6H PRN IV NAUSEA/VOMITING; Start 11/04/18 at 18:30 Acetaminophen (Tylenol Tab) 650 mg Q6H PRN PO .PAIN 1-3 OR TEMP Last administered on 11/05/18at 11:58; Admin Dose 650 MG; Start 11/04/18 at 18:30 Lorazepam (Ativan) 2 mg Q10MIN PRN IV seizures; Start 11/04/18 at 18:30 Insulin Aspart (Novolog Insulin Pen) NOVOLOG *MILD* ALGORITHM WITH MEALS BEDTIME SC Last administered on 11/11/18 20:55; Admin Dose 1 UNIT; Start 11/04/18 at 21:00 Miscellaneous Information 1 ea NOTE XX ; Start 11/04/18 at 19:00 Glucose (Glutose) 15 gm Q15M PRN PO DECREASED GLUCOSE; Start 11/04/18 at 19:00 Glucose (Glutose) 22.5 gm Q15M PRN PO DECREASED GLUCOSE; Start 11/04/18 at 19:00 Dextrose (D50w Syringe) 25 ml Q15M PRN IV DECREASED GLUCOSE; Start 11/04/18 at 19:00 Dextrose (D50w Syringe) 50 ml Q15M PRN IV DECREASED GLUCOSE; Start 11/04/18 at 19:00 Glucagon (Glucagen) 1 mg Q15M PRN IM DECREASED GLUCOSE; Start 11/04/18 at 19:00 Glucose (Glutose) 15 gm Q15M PRN BUCCAL DECREASED GLUCOSE; Start 11/04/18 at 19:00 Amlodipine Besylate (Norvasc) 10 mg DAILY PO Last administered on 11/12/18at 08:16; Admin Dose 10 MG; Start 11/05/18 at 00:00 Hydralazine HCl (Apresoline) 10 mg Q4H PRN IV sbp >160; Start 11/05/18 at 12:00 Metformin HCl (Glucophage) 500 mg BID WITH MEALS PO Last administered on 11/12/18 18:17; Admin Dose 500 MG; Start 11/05/18 at 18:00 Lidocaine (Lidoderm) 1 patch DAILY TD Last administered on 11/12/18at 08:16; Admin Dose 1 PATCH; Start 11/09/18 at 11:00 Oxycodone/ Acetaminophen (Percocet (5/ 325)) 1 tab Q4H PRN PO MODERATE PAIN LEVEL 4-6 Last administered on 11/12/18at 06:25; Admin Dose 1 TAB; Start 11/09/18 at 11:00 Oxycodone/ Acetaminophen (Endocet (10/ 325)) 1 tab Q4H PRN PO SEVERE PAIN LEVEL 7-10 Last administered on 11/13/18at 06:17; Admin Dose 1 TAB; Start 11/09/18 at 11:00 Cyclobenzaprine HCl (Flexeril) 10 mg Q8 PO Last administered on 11/13/18 06:17; Admin Dose 10 MG; Start 11/10/18 at 15:30 Ketorolac Tromethamine (Toradol) 30 mg Q6H PRN IV PAIN LEVEL 1-3 Last administered on 11/13/18 06:17; Admin Dose 30 MG; Start 11/12/18 at 07:00; Stop 11/15/18 at 06:59 Prednisone (Prednisone) 40 mg DAILY PO ; Start 11/13/18 at 09:00 YUSUF LOVE Nov 13, 2018 07:22
[2018-11-13] MEDS: OXYCODONE/ACETAMINOPHEN (5/325) TAB PO PRN (07:46)
[2018-11-13 07:54] VITALS: BP 175/83; PULSE 70; RESP 19
[2018-11-13] MEDS: INSULIN ASPART [NOVOLOG] 3 ML PEN SC SCH ×4 (08:00→20:50)
[2018-11-13] MEDS: metFORMIN 500 MG TAB PO SCH ×2 (08:23→17:57)
[2018-11-13] MEDS: predniSONE 20 MG TAB PO SCH (08:24)
[2018-11-13] MEDS: FAMOTIDINE 20 MG TAB PO SCH ×2 (08:24→20:50)
[2018-11-13] MEDS: DOCUSATE SODIUM 100 MG CAP PO SCH ×2 (08:24→20:50)
[2018-11-13] MEDS: ASPIRIN (EC) 81 MG TAB PO SCH (08:24)
[2018-11-13] MEDS: traZODone 50 MG TAB PO SCH ×2 (08:25→20:50)
[2018-11-13] MEDS: ISOSORBIDE MONONITRATE(SR)30 MG TAB PO SCH (08:25)
[2018-11-13] MEDS: AMLODIPINE 10 MG TAB PO SCH (08:25)
[2018-11-13] MEDS: TIMOLOL 0.25% 5 ML OPH BOTH EYES SCH ×2 (08:26→20:49)
[2018-11-13] MEDS: LIDOCAINE 5% PATCH TD SCH (08:28)
[2018-11-13] MEDS: HYDROmorphONE 1 MG/ML SYG IV PRN ×3 (10:50→21:45)
[2018-11-13] MEDS ORDERED: VANCOMYCIN IV PER PHARMACY XX SCH (12:30)
[2018-11-13] MEDS ORDERED: LORAZEPAM 2 MG INJ IV PRN (12:30)
[2018-11-13] MEDS: oxyCODONE (CR) 10 MG TAB [oxyCONTIN] PO SCH ×2 (12:55→20:50)
[2018-11-13] MEDS: CEFTRIAXONE 2 GM/50 ML (PMX) 50 ML IVPB SCH (13:40)
--- NOTE | 2018-11-13 14:22 | PN ---
Date/Time of Note Date/Time of Note DATE: 11/13/18 TIME: 14:18 Assessment/Plan VTE Prophylaxis Risk score (from Nsg)>0 risk: 2 SCD applied (from Nsg): Yes Pharmacological prophylaxis: other Lines/Catheters IV Catheter Type (from Nrsg): Saline Lock Urinary Cath still in place: No Assessment/Plan Assessment/Plan 1. Severe lower back pain, possible ongoing osteomyelitis - CT L spine results noted and concern for ongoing osteomyelitis. Will order MRI. Records from [facility] reviewed from August when he was initially diagnosed with OM. He was seen by surgeon who did not recommend any surgical intervention. He was discharged on vanco and rocephin for 6 weeks therapy. Patient does not remember if he was reexamined after completion of antibiotics - ID consulted for antibiotic recommendations. Restarted on Vancomycin and Rocephin for now - Pain management consulted and appreciate recommendations 2. Acute syncope episode, resolved - No further episodes since admission. - Neurology consultation appreciate - Imaging results noted 3. Slurred speech, resolved - stroke work up completes and imaging studies negative for acute issues - Neurology input appreciated 4. LE swelling- improved - Ultrasound venous bilaterally negative for DVT 5. Chronic foot pain - Secondary to fall many years ago, same accident as his back pain 6. Acute kidney injury versus chronic kidney disease - Resolved, monitor closely 7. Recent history of osteomyelitis - treated at [facility] 8. Hypertension - Continue home meds 9. Diabetes mellitus - A1c noted - will only continue metformin at time of discharge 10. Questionable coronary artery disease - Continue baby aspirin 11. Glaucoma - Continue home eye drops 12. Active hepatitis C - will need outpatient follow up 13. Chronic debility - Patient had a fall from a ladder a couple years ago which is the cause of his chronic back pain as well as chronic foot pain - Wheelchair-bound 14. Anemia - Mild, monitor for now 15. Disposition - MRI ordered to assess for ongoing osteomyelitis and ID consulted to determine if continued IV antibiotics are needed. Result Diagram: 11/12/18 0521 Results 24hrs Laboratory Tests Test 11/12/18 17:21 11/12/18 21:59 11/13/18 08:23 11/13/18 12:16 Bedside Glucose 119 94 91 129 Subjective 24 Hr Interval Summary Free Text/Dictation Patient still with lower back pain and agreeable to MRI if able to get Ativan due to claustrophobia. Exam/Review of Systems Exam Vitals Vital Signs Date Temp Pulse Resp B/P (MAP) Pulse Ox O2 O2 Flow FiO2 Time Delivery Rate 11/13/18 97.7 70 19 175/83 98 07:54 (113) 11/09/18 Room Air 13:26 Intake and Output 11/12/18 11/12/18 11/13/18 1515:00 23:00 07:00 IntakeIntake Total 960 ml 600 ml OutputOutput Total 1100 ml BalanceBalance -140 ml 600 ml Exam General: Patient is laying in bed and answers questions appropriately. Neck: Supple Respiratory: Clear to auscultation bilaterally. no wheezing or rhonchi Cardiovascular: regular rate and rhythm, no obvious murmurs Gastrointestinal: soft, non-tender to palpation, nondistended, bowel sounds heard. ext: Moves all extremities spontaneously. tenderness left lumbar area Skin: No new skin lesions Results Results 24hrs Laboratory Tests Test 11/12/18 17:21 11/12/18 21:59 11/13/18 08:23 11/13/18 12:16 Bedside Glucose 119 94 91 129 Medications Medication Current Medications Aspirin (Halfprin) 81 mg DAILY PO Last administered on 11/13/18 08:24; Admin Dose 81 MG; Start 11/05/18 at 09:00 Atorvastatin Calcium (Lipitor) 40 mg QHS PO Last administered on 11/12/18 22:01; Admin Dose 40 MG; Start 11/04/18 at 21:00 Brimonidine Tartrate (Alphagan P 0.15%) 1 drop Q8 BOTH EYES Last administered on 11/13/18 13:40; Admin Dose 1 DROP; Start 11/04/18 at 22:00 Docusate Sodium (Colace) 100 mg BID PO Last administered on 11/13/18 08:24; Admin Dose 100 MG; Start 11/04/18 at 21:00 Famotidine (Pepcid) 20 mg BID PO Last administered on 11/13/18 08:24; Admin Dose 20 MG; Start 11/04/18 at 21:00 Isosorbide Mononitrate (Imdur) 30 mg DAILY PO Last administered on 11/13/18 08:25; Admin Dose 30 MG; Start 11/05/18 at 09:00 Latanoprost (Xalatan) 1 drop QHS BOTH EYES Last administered on 11/12/18 22:01; Admin Dose 1 DROP; Start 11/04/18 at 21:00 Timolol Maleate (Timoptic 0.25%) 1 drop BID BOTH EYES Last administered on 11/13/18 08:26; Admin Dose 1 DROP; Start 11/04/18 at 21:00 Trazodone HCl (Desyrel) 50 mg BID PO Last administered on 11/13/18 08:25; Admin Dose 50 MG; Start 11/04/18 at 21:00 IV Flush (NS 3 ml) 3 ml PER PROTOCOL IV ; Start 11/04/18 at 18:30 Ondansetron HCl (Zofran Inj) 4 mg Q6H PRN IV NAUSEA/VOMITING; Start 11/04/18 at 18:30 Acetaminophen (Tylenol Tab) 650 mg Q6H PRN PO .PAIN 1-3 OR TEMP Last administered on 11/05/18at 11:58; Admin Dose 650 MG; Start 11/04/18 at 18:30 Lorazepam (Ativan) 2 mg Q10MIN PRN IV seizures; Start 11/04/18 at 18:30 Insulin Aspart (Novolog Insulin Pen) NOVOLOG *MILD* ALGORITHM WITH MEALS BEDTIME SC Last administered on 11/11/18at 20:55; Admin Dose 1 UNIT; Start 11/04/18 at 21:00 Miscellaneous Information 1 ea NOTE XX ; Start 11/04/18 at 19:00 Glucose (Glutose) 15 gm Q15M PRN PO DECREASED GLUCOSE; Start 11/04/18 at 19:00 Glucose (Glutose) 22.5 gm Q15M PRN PO DECREASED GLUCOSE; Start 11/04/18 at 19:00 Dextrose (D50w Syringe) 25 ml Q15M PRN IV DECREASED GLUCOSE; Start 11/04/18 at 19:00 Dextrose (D50w Syringe) 50 ml Q15M PRN IV DECREASED GLUCOSE; Start 11/04/18 at 19:00 Glucagon (Glucagen) 1 mg Q15M PRN IM DECREASED GLUCOSE; Start 11/04/18 at 19:00 Glucose (Glutose) 15 gm Q15M PRN BUCCAL DECREASED GLUCOSE; Start 11/04/18 at 19:00 Amlodipine Besylate (Norvasc) 10 mg DAILY PO Last administered on 7/26/19at 08:25; Admin Dose 10 MG; Start 11/05/18 at 00:00 Hydralazine HCl (Apresoline) 10 mg Q4H PRN IV sbp >160; Start 11/05/18 at 12:00 Metformin HCl (Glucophage) 500 mg BID WITH MEALS PO Last administered on 11/13/18 08:23; Admin Dose 500 MG; Start 11/05/18 at 18:00 Lidocaine (Lidoderm) 1 patch DAILY TD Last administered on 11/13/18 08:28; Admin Dose 1 PATCH; Start 11/09/18 at 11:00 Cyclobenzaprine HCl (Flexeril) 10 mg Q8 PO Last administered on 11/13/18 13:43; Admin Dose 10 MG; Start 11/10/18 at 15:30 Ketorolac Tromethamine (Toradol) 30 mg Q6H PRN IV PAIN LEVEL 1-3 Last administered on 11/13/18 06:17; Admin Dose 30 MG; Start 11/12/18 at 07:00; Stop 11/15/18 at 06:59 Prednisone (Prednisone) 40 mg DAILY PO Last administered on 11/13/18at 08:24; Admin Dose 40 MG; Start 11/13/18 at 09:00 Hydromorphone HCl (Dilaudid) 1 mg Q4H PRN IV SEVERE PAIN LEVEL 7-10 Last administered on 11/13/18at 10:50; Admin Dose 1 MG; Start 11/13/18 at 09:30 Oxycodone HCl (Oxycontin) 10 mg TID PO Last administered on 11/13/18at 12:55; Admin Dose 10 MG; Start 11/13/18 at 13:00 Ceftriaxone Sodium 50 ml @ 100 mls/hr Q24H IVPB Last administered on 11/13/18at 13:40; Admin Dose 100 MLS/HR; Start 11/13/18 at 14:00 Vancomycin HCl (Vanco Iv Per Pharmacy) VANCOMYCIN PER PHARMACY PER PROTOCOL XX ; Start 11/13/18 at 12:30 Vancomycin/Sodium Chloride 250 ml @ 83.333 mls/ hr 1500 IVPB ; Start 11/13/18 at 15:00; Stop 11/13/18 at 23:00 Vancomycin/Sodium Chloride 250 ml @ 83.333 mls/ hr Q12H IVPB ; Start 11/14/18 at 03:00 LENIN,NATHAN MD Nov 13, 2018 14:22
[2018-11-13 14:54] VITALS: BP 108/61; PULSE 79; RESP 17
[2018-11-13] MEDS ORDERED: VANCOMYCIN 1.5 GM/NS 250 ML 250 ML IVPB SCH (15:00)
--- NOTE | 2018-11-13 16:16 | CONS ---
DATE OF ADMISSION: 11/04/2018 DATE OF CONSULTATION: 11/13/2018 TYPE OF CONSULTATION: Infectious disease. REASON FOR CONSULTATION: Antibiotic management. HISTORY OF PRESENT ILLNESS: Adriano Acosta is a 63-year-old male who comes in with paramedics after p assing out. The patient had a syncopal episode, was feeling shaky past and had a brief loss of consc iousness. It is unclear if he had seizure activity. He reported no chest pain, no palpitations, hea daches, no focal weakness. He was just recently in a convalescent facility long-term care for IV ant ibiotics for a back infection which he just finished. His problems include diabetes mellitus, chroni c pain, back injury, glaucoma, wheelchair bound and hepatitis C, as well as hypertension. FAMILY HISTORY: Noncontributory. SOCIAL HISTORY: He uses alcohol. He uses marijuana and does not smoke tobacco. ANCILLARY LABORATORY DATA: On admission, his white count was 8.9, H and H of 11.1 and 35.6, platelet count 267,000. BUN and creatinine 18/1.45. HOSPITAL COURSE: The patient is an -[place] male who recently was treated for osteomyelitis of the back, with 6 weeks of IV antibiotics. As noted, he has numerous medical problems including dy slipidemia. There is a questionable history of TIA versus CVA. His neighbor at the assisted living facility found him questionably shaking and passed out. He has chronic foot pain. He also states th at he urinated at the time he had a syncopal episode a few months ago when he was sent to the [facility] after being found to be hypoglycemic. The patient was seen by Dr. Gallegos. Convulsive syncope is a consideration. From the neurological perspective, epilepsy less likely. MRI is reassuringly n egative for acute intracranial pathology or a prior cortical base stroke in the hospital On the white count was 6.0. Currently, her white count is 5.3. CT scan of the lumbar spine shows severe d isk narrowing. Extensive endplate irregularity at both L4-L5 and L5-S1, raises concern for chronic d iskitis and osteomyelitis at these levels, for which further evaluation with an MRI of the lumbar spi ne with and without gadolinium is recommended. Additional osteophyte and disk material at L4-L5 and L5-S1 contributes to severe bilateral foraminal stenosis at these levels with epidural fat deposition palpated, contributing to mild central canal narrowing. MRI will help exclude the possibility of an terior epidural phlegmon. Chronic appearing mild anterior, superior L3 endplate compression deformit y, annular disk bulging at L2-L3, L3-L4 contributing to minimal foraminal stenosis without significan t central canal stenosis. A foot MRI was done without evidence of osteomyelitis. Both feet were tomy luated with MRI. Chest x-ray shows mild subsegmental left basilar atelectasis. Urine is negative. The patient has hepatitis C and his viral load is very high at 4,460,000. He is certainly a candidat e for treatment. The patient has severe back pain, now worsened on admission, CT left spine performe d to assess given the patient refused an MRI. PHYSICAL EXAMINATION: GENERAL: The patient is lying in bed in no acute distress except for his low back pain. SKIN: Without generalized rash. HEENT: Within normal limits. NECK: Supple. LYMPH NODES: None palpable. CHEST: Decreased breath sounds at the bases. HEART: Without murmur or gallop. ABDOMEN: Soft, nontender, without organosplenomegaly or masses. EXTREMITIES: Without cyanosis, clubbing, or edema. He has mild tenderness. BACK: Mild tenderness left lumbar area and paraspinal muscle spasms. Dr. Padron also saw him for pain management. Currently, he is on vancomycin and ceftriaxone to cover osteomyelitis well. An MRI of the spine is pending. We will continue him on this current therapy. I will dictate my findings to the hospitalists, Dr. Gaby Schneider and the aforementioned consults. Dictated By: JOYCE OWENS MD, JD/VICKIE Conf#: [id number] DID#: [id number] CC: AVELINO HINTON MD;*EndCC*
[2018-11-13 19:30] VITALS: BP 123/73; PULSE 93; RESP 18
[2018-11-13] MEDS: ATORVASTATIN 40 MG TAB PO SCH (20:49)
[2018-11-13] MEDS: LATANOPROST 0.005% 2.5 ML OPH BOTH EYES SCH (20:51)
[2018-11-14] MEDS: KETOROLAC 30 MG INJ IV PRN ×3 (01:03→14:05)
[2018-11-14 01:54] VITALS: BP 139/77; PULSE 86; RESP 17
[2018-11-14] MEDS ORDERED: VANCOMYCIN 1.25 GM/NS 250 ML 250 ML IVPB SCH (03:00)
[2018-11-14] MEDS: BRIMONIDINE 0.15% 5 ML OPH BOTH EYES SCH ×3 (05:41→21:41)
[2018-11-14] MEDS: CYCLOBENZAPRINE 10 MG TAB PO SCH ×3 (05:41→21:41)
[2018-11-14] MEDS: HYDROmorphONE 1 MG/ML SYG IV PRN ×3 (05:45→20:27)
[2018-11-14 07:14] VITALS: BP 142/72; PULSE 75; RESP 19
[2018-11-14] MEDS: metFORMIN 500 MG TAB PO SCH ×2 (07:51→17:01)
[2018-11-14] MEDS: INSULIN ASPART [NOVOLOG] 3 ML PEN SC SCH ×4 (07:54→20:47)
[2018-11-14] MEDS: DOCUSATE SODIUM 100 MG CAP PO SCH ×2 (08:44→20:31)
[2018-11-14] MEDS: ASPIRIN (EC) 81 MG TAB PO SCH (08:44)
[2018-11-14] MEDS: oxyCODONE (CR) 10 MG TAB [oxyCONTIN] PO SCH ×3 (08:45→21:41)
[2018-11-14] MEDS: predniSONE 20 MG TAB PO SCH (08:45)
[2018-11-14] MEDS: ISOSORBIDE MONONITRATE(SR)30 MG TAB PO SCH (08:45)
[2018-11-14] MEDS: FAMOTIDINE 20 MG TAB PO SCH ×2 (08:45→20:31)
[2018-11-14] MEDS: traZODone 50 MG TAB PO SCH ×2 (08:45→21:40)
[2018-11-14] MEDS: AMLODIPINE 10 MG TAB PO SCH (08:45)
[2018-11-14] MEDS: TIMOLOL 0.25% 5 ML OPH BOTH EYES SCH ×2 (08:46→20:32)
[2018-11-14] MEDS: LIDOCAINE 5% PATCH TD SCH (08:52)
--- NOTE | 2018-11-14 12:28 | PN ---
Date/Time of Note Date/Time of Note DATE: 11/14/18 TIME: 12:24 Assessment/Plan VTE Prophylaxis Risk score (from Nsg)>0 risk: 4 SCD applied (from Nsg): Yes Pharmacological prophylaxis: other Lines/Catheters IV Catheter Type (from Nrsg): Peripheral IV Urinary Cath still in place: No Assessment/Plan Assessment/Plan 1. Severe lower back pain, possible ongoing osteomyelitis - MRI results pending to assess for ongoing OM - CT L spine results noted and concern for ongoing osteomyelitis. Records from [facility] reviewed from August when he was initially diagnosed with OM. He was seen by surgeon who did not recommend any surgical intervention. He was discharged on vanco and rocephin for 6 weeks therapy. Patient does not remember if he was reexamined after completion of antibiotics - ID consultation appreciated - Pain management consulted and appreciate recommendations. continue current pain regime 2. Acute syncope episode, resolved - No further episodes since admission. - Neurology consultation appreciate - Imaging results noted 3. Slurred speech, resolved - stroke work up completes and imaging studies negative for acute issues - Neurology input appreciated 4. LE swelling- improved - Ultrasound venous bilaterally negative for DVT 5. Chronic foot pain - Secondary to fall many years ago, same accident as his back pain 6. Acute kidney injury versus chronic kidney disease - Resolved, monitor closely 7. Recent history of osteomyelitis - treated at [facility] 8. Hypertension - Continue home meds 9. Diabetes mellitus - A1c noted - will only continue metformin at time of discharge 10. Questionable coronary artery disease - Continue baby aspirin 11. Glaucoma - Continue home eye drops 12. Active hepatitis C - will need outpatient follow up 13. Chronic debility - Patient had a fall from a ladder a couple years ago which is the cause of his chronic back pain as well as chronic foot pain - Wheelchair-bound 14. Anemia - Mild, monitor for now 15. Disposition - MRI results pending. If still with ongoing OM will need to continue IV antibiotics and possible placement again. Will keep CM informed on plan of care Result Diagram: 11/12/18 0521 11/14/18 0434 Results 24hrs Laboratory Tests Test 11/13/18 17:57 11/13/18 20:49 11/14/18 04:34 11/14/18 07:51 Bedside Glucose 150 127 114 Blood Urea Nitrogen 42 H Creatinine 1.34 H Subjective 24 Hr Interval Summary Free Text/Dictation Patient resting, in no acute distress. Per nursing, has been asking for pain medications often due to lower back pain. Exam/Review of Systems Exam Vitals Vital Signs Date Temp Pulse Resp B/P (MAP) Pulse Ox O2 O2 Flow FiO2 Time Delivery Rate 11/14/18 98.1 75 19 142/72 95 Room Air 07:14 (95) Intake and Output 11/13/18 11/13/18 11/14/18 1515:00 23:00 07:00 IntakeIntake Total 1050 ml 770 ml 250 ml OutputOutput Total 850 ml 400 ml 900 ml BalanceBalance 200 ml 370 ml -650 ml Exam General: Patient is laying in bed, sleeping Neck: Supple Respiratory: Clear to auscultation bilaterally. no wheezing or rhonchi Cardiovascular: regular rate and rhythm, no obvious murmurs Gastrointestinal: soft, non-tender to palpation, nondistended, bowel sounds heard. ext: Moves all extremities spontaneously. Skin: No new skin lesions. slightly diaphoretic Results Results 24hrs Laboratory Tests Test 11/13/18 17:57 11/13/18 20:49 11/14/18 04:34 11/14/18 07:51 Bedside Glucose 150 127 114 Blood Urea Nitrogen 42 H Creatinine 1.34 H Medications Medication Current Medications Aspirin (Halfprin) 81 mg DAILY PO Last administered on 11/14/18 08:44; Admin Dose 81 MG; Start 11/05/18 at 09:00 Atorvastatin Calcium (Lipitor) 40 mg QHS PO Last administered on 11/13/18 20:49; Admin Dose 40 MG; Start 11/04/18 at 21:00 Brimonidine Tartrate (Alphagan P 0.15%) 1 drop Q8 BOTH EYES Last administered on 11/14/18 05:41; Admin Dose 1 DROP; Start 11/04/18 at 22:00 Docusate Sodium (Colace) 100 mg BID PO Last administered on 11/14/18 08:44; Admin Dose 100 MG; Start 11/04/18 at 21:00 Famotidine (Pepcid) 20 mg BID PO Last administered on 11/14/18 08:45; Admin Dose 20 MG; Start 11/04/18 at 21:00 Isosorbide Mononitrate (Imdur) 30 mg DAILY PO Last administered on 11/14/18 08:45; Admin Dose 30 MG; Start 11/05/18 at 09:00 Latanoprost (Xalatan) 1 drop QHS BOTH EYES Last administered on 11/13/18at 20:51; Admin Dose 1 DROP; Start 11/04/18 at 21:00 Timolol Maleate (Timoptic 0.25%) 1 drop BID BOTH EYES Last administered on 11/14/18 08:46; Admin Dose 1 DROP; Start 11/04/18 at 21:00 Trazodone HCl (Desyrel) 50 mg BID PO Last administered on 11/14/18at 08:45; Admin Dose 50 MG; Start 11/04/18 at 21:00 IV Flush (NS 3 ml) 3 ml PER PROTOCOL IV ; Start 11/04/18 at 18:30 Ondansetron HCl (Zofran Inj) 4 mg Q6H PRN IV NAUSEA/VOMITING; Start 11/04/18 at 18:30 Acetaminophen (Tylenol Tab) 650 mg Q6H PRN PO .PAIN 1-3 OR TEMP Last administered on 11/05/18at 11:58; Admin Dose 650 MG; Start 11/04/18 at 18:30 Lorazepam (Ativan) 2 mg Q10MIN PRN IV seizures Last administered on 11/13/18at 1 6:55; Admin Dose 2 MG; Start 11/04/18 at 18:30 Insulin Aspart (Novolog Insulin Pen) NOVOLOG *MILD* ALGORITHM WITH MEALS BEDTIME SC Last administered on 11/13/18 18:00; Admin Dose 1 UNIT; Start 10/19 11/06 at 21:00 Miscellaneous Information 1 ea NOTE XX ; Start 11/04/18 at 19:00 Glucose (Glutose) 15 gm Q15M PRN PO DECREASED GLUCOSE; Start 11/04/18 at 19:00 Glucose (Glutose) 22.5 gm Q15M PRN PO DECREASED GLUCOSE; Start 11/04/18 at 19:00 Dextrose (D50w Syringe) 25 ml Q15M PRN IV DECREASED GLUCOSE; Start 11/04/18 at 19:00 Dextrose (D50w Syringe) 50 ml Q15M PRN IV DECREASED GLUCOSE; Start 11/04/18 at 19:00 Glucagon (Glucagen) 1 mg Q15M PRN IM DECREASED GLUCOSE; Start 11/04/18 at 19:00 Glucose (Glutose) 15 gm Q15M PRN BUCCAL DECREASED GLUCOSE; Start 11/04/18 at 19:00 Amlodipine Besylate (Norvasc) 10 mg DAILY PO Last administered on 11/14/18 08:45; Admin Dose 10 MG; Start 11/05/18 at 00:00 Hydralazine HCl (Apresoline) 10 mg Q4H PRN IV sbp >160; Start 11/05/18 at 12:00 Metformin HCl (Glucophage) 500 mg BID WITH MEALS PO Last administered on 11/14/18 07:51; Admin Dose 500 MG; Start 11/05/18 at 18:00 Lidocaine (Lidoderm) 1 patch DAILY TD Last administered on 11/14/18 08:52; Adm in Dose 1 PATCH; Start 11/09/18 at 11:00 Cyclobenzaprine HCl (Flexeril) 10 mg Q8 PO Last administered on 11/13/18 13:43; Admin Dose 10 MG; Start 11/10/18 at 15:30 Ketorolac Tromethamine (Toradol) 30 mg Q6H PRN IV PAIN LEVEL 1-3 Last administered on 11/14/18 07:52; Admin Dose 30 MG; Start 11/12/18 at 07:00; Stop 11/15/18 at 06:59 Prednisone (Prednisone) 40 mg DAILY PO Last administered on 11/14/18 08:45; Admin Dose 40 MG; Start 11/13/18 at 09:00 Hydromorphone HCl (Dilaudid) 1 mg Q4H PRN IV SEVERE PAIN LEVEL 7-10 Last administered on 11/14/18 05:45; Admin Dose 1 MG; Start 11/13/18 at 09:30 Oxycodone HCl (Oxycontin) 10 mg TID PO Last administered on 11/14/18 08:45; Admin Dose 10 MG; Start 11/13/18 at 13:00 Ceftriaxone Sodium 50 ml @ 100 mls/hr Q24H IVPB Last administered on 11/13/18at 13:40; Admin Dose 100 MLS/HR; Start 11/13/18 at 14:00 Vancomycin HCl (Vanco Iv Per Pharmacy) VANCOMYCIN PER PHARMACY PER PROTOCOL XX ; Start 11/13/18 at 12:30 Vancomycin/Sodium Chloride 250 ml @ 83.333 mls/ hr Q12H IVPB Last administered on 11/14/18at 03:55; Admin Dose 83.333 MLS/HR; Start 11/14/18 at 03:00 Miscellaneous Information (*Rx Drug Level Order Reminder*) 1 0200 ONCE XX ; Start 11/15/18 at 02:00; Stop 11/15/18 at 02:01 NATHAN PHELPS MD Nov 14, 2018 12:28
--- NOTE | 2018-11-14 13:39 | PN ---
DATE: 11/14/2018 SUBJECTIVE: The patient is awake. Complaining of back pain. He is in no distress, afebrile with BU N 42, creatinine 1.34 today. WBC 5.3 yesterday. No shift, no bands. He had a lumbar spine CT yeste rday that revealed severe disk narrowing and extensive endplate irregularity at both L4-L5 and L5-S1. Raises concern for chronic diskitis and osteomyelitis. There was a concern of anterior epidural ph legmon. Please see full report in the chart. The patient also had an MRI of the foot that revealed no acute fractures and no evidence of osteomyelitis. 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 He had a CT of the bra in on admission that revealed no acute intracranial abnormalities. MRI of the brain showed no acute intracranial abnormalities. ANTIMICROBIALS: The patient is on IV vancomycin and Rocephin. ALLERGIES: HE IS NOT ALLERGIC TO ANY ANTIBIOTICS. PHYSICAL EXAMINATION: GENERAL: This is well-developed, obese, elderly -[place] man who is alert, in no distress. HEENT: Head atraumatic, normocephalic. NECK: Supple. CHEST: Rise symmetrical. Breath sounds diminished to bases. HEART: S1, S2. ABDOMEN: Soft, bowel sounds present. ASSESSMENT: 1. Back pain, possibly secondary to osteomyelitis, rule out phlegmon. 2. Status post syncopal episode. 3. Acute possibly on chronic kidney disease. 4. Diabetes. 5. Hypertension. PLAN: The patient is clinically stable. He is on appropriate antibiotic regimen, pending spinal MRI . Follow neurology recommendations. Dictated By: ABRAM CASILLAS BOWL TOPPER for JOYCE OWENS MD NI/NTS Conf#: [id number] DID#: [id number] CC: NATHAN PHELPS MD;*EndCC*
[2018-11-14 13:56] VITALS: BP 131/71; PULSE 88; RESP 18
[2018-11-14] MEDS: CEFTRIAXONE 2 GM/50 ML (PMX) 50 ML IVPB SCH (14:01)
[2018-11-14] MEDS ORDERED: HYDROmorphONE 1 MG/ML SYG IV ONE (17:00)
[2018-11-14 20:00] VITALS: BP 163/88; PULSE 75; RESP 17
[2018-11-14] MEDS: VANCOMYCIN 750 MG (PMX) 250 ML IVPB SCH (20:28)
[2018-11-14] MEDS: ATORVASTATIN 40 MG TAB PO SCH (20:30)
[2018-11-14] MEDS: LATANOPROST 0.005% 2.5 ML OPH BOTH EYES SCH (20:32)
[2018-11-14 21:15] VITALS: BP 126/69; PULSE 83
[2018-11-15 02:00] VITALS: BP 146/82; PULSE 68; RESP 15
[2018-11-15] MEDS: KETOROLAC 30 MG INJ IV PRN (02:33)
[2018-11-15] MEDS: BRIMONIDINE 0.15% 5 ML OPH BOTH EYES SCH ×3 (05:51→22:05)
[2018-11-15] MEDS: CYCLOBENZAPRINE 10 MG TAB PO SCH ×3 (05:51→22:05)
[2018-11-15] MEDS: HYDROmorphONE 1 MG/ML SYG IV PRN ×4 (06:35→20:43)
[2018-11-15 07:17] VITALS: BP 144/79; PULSE 71; RESP 18
[2018-11-15] MEDS: INSULIN ASPART [NOVOLOG] 3 ML PEN SC SCH ×4 (08:00→20:41)
[2018-11-15] MEDS: LIDOCAINE 5% PATCH TD SCH (08:21)
[2018-11-15] MEDS: ASPIRIN (EC) 81 MG TAB PO SCH (08:22)
[2018-11-15] MEDS: DOCUSATE SODIUM 100 MG CAP PO SCH ×2 (08:22→20:40)
[2018-11-15] MEDS: metFORMIN 500 MG TAB PO SCH ×2 (08:22→17:26)
[2018-11-15] MEDS: ISOSORBIDE MONONITRATE(SR)30 MG TAB PO SCH (08:23)
[2018-11-15] MEDS: FAMOTIDINE 20 MG TAB PO SCH ×2 (08:23→20:40)
[2018-11-15] MEDS: oxyCODONE (CR) 10 MG TAB [oxyCONTIN] PO SCH ×3 (08:23→22:05)
[2018-11-15] MEDS: AMLODIPINE 10 MG TAB PO SCH (08:23)
[2018-11-15] MEDS: VANCOMYCIN 750 MG (PMX) 250 ML IVPB SCH ×2 (08:24→20:37)
[2018-11-15] MEDS: TIMOLOL 0.25% 5 ML OPH BOTH EYES SCH ×2 (08:25→20:42)
[2018-11-15] MEDS: predniSONE 20 MG TAB PO SCH (08:32)
[2018-11-15] MEDS: traZODone 50 MG TAB PO SCH (08:32)
[2018-11-15] MEDS ORDERED: MAGNESIUM SULFATE 2 GM/50 ML 50 ML IVPB ONE (10:30)
--- NOTE | 2018-11-15 12:59 | PN ---
Date/Time of Note Date/Time of Note DATE: 11/15/18 TIME: 12:55 Assessment/Plan VTE Prophylaxis Risk score (from Nsg)>0 risk: 4 SCD applied (from Nsg): Yes Pharmacological prophylaxis: other Lines/Catheters IV Catheter Type (from Nrsg): Saline Lock Urinary Cath still in place: No Assessment/Plan Assessment/Plan 1. Severe lower back pain - MRI results with no noted OM. Discussed findings of stenosis and disc bulging with patient. He is refusing surgical intervention and discussed need for PT and supportive care - continue pain control per Pain management recommendations - has not been sleeping well either and will try Melatonin tonight with increased Trazodone dose PRN - CT L spine results noted and concern for ongoing osteomyelitis. Records from [facility] reviewed from August when he was initially diagnosed with OM. He was seen by surgeon who did not recommend any surgical intervention. He was discharged on vanco and rocephin for 6 weeks therapy. Patient does not remember if he was reexamined after completion of antibiotics - ID consultation appreciated and will touch base on their thoughts about IV antibiotics 2. Acute syncope episode, resolved - No further episodes since admission. - Neurology consultation appreciate - Imaging results noted 3. Slurred speech, resolved - stroke work up completes and imaging studies negative for acute issues - Neurology input appreciated 4. LE swelling- improved - Ultrasound venous bilaterally negative for DVT 5. Chronic foot pain - Secondary to fall many years ago, same accident as his back pain 6. Acute kidney injury versus chronic kidney disease - Resolved, monitor closely 7. Recent history of osteomyelitis - treated at [facility] 8. Hypertension - Continue home meds 9. Diabetes mellitus - A1c noted - will only continue metformin at time of discharge 10. Questionable coronary artery disease - Continue baby aspirin 11. Glaucoma - Continue home eye drops 12. Active hepatitis C - will need outpatient follow up 13. Chronic debility - Patient had a fall from a ladder a couple years ago which is the cause of his chronic back pain as well as chronic foot pain - Wheelchair-bound 14. Anemia - Mild, monitor for now 15. Disposition - Patient with severe pain in back and will need to continue adjusting pain medications per Pain management recommendations. CM on board for placement and patient still debating on HHPT or SNF. Will try sleep aids tonight to help with insomnia Result Diagram: 11/15/18 0438 11/15/18 0438 Results 24hrs Laboratory Tests Test 11/14/18 17:01 11/14/18 20:15 11/15/18 04:38 11/15/18 08:19 Bedside Glucose 158 119 110 White Blood Count 6.8 # Red Blood Count 4.03 L Hemoglobin 10.4 L Hematocrit 33.9 L Mean Corpuscular 84.1 Volume Mean Corpuscular 25.8 L Hemoglobin Mean Corpuscular 30.7 L Hemoglobin Concent Red Cell 13.5 Distribution Width Platelet Count 254 Mean Platelet Volume 10.3 Immature 0.400 Granulocytes % Neutrophils % 65.8 Lymphocytes % 15.4 Monocytes % 17.3 H Eosinophils % 0.7 Basophils % 0.4 Nucleated Red Blood 0.0 Cells % Immature 0.030 Granulocytes # Neutrophils # 4.4 Lymphocytes # 1.0 Monocytes # 1.2 H Eosinophils # 0.1 Basophils # 0.0 Nucleated Red Blood 0.0 Cells # Sodium Level 141 Potassium Level 4.1 Chloride Level 109 Carbon Dioxide Level 24 Anion Gap 8 Blood Urea Nitrogen 36 H Creatinine 1.15 Glucose Level 141 Calcium Level 9.9 Phosphorus Level 3.7 Magnesium Level 1.8 Albumin 3.6 Subjective 24 Hr Interval Summary Free Text/Dictation Patient still complaining of lower back pain and discussed MRI findings. Also complaining that he has not been able to sleep well. He took Trazodone 100mg prior to admission which did not work. Exam/Review of Systems Exam Vitals Vital Signs Date Temp Pulse Resp B/P (MAP) Pulse Ox O2 O2 Flow FiO2 Time Delivery Rate 11/15/18 98.7 71 18 144/79 99 Room Air 07:17 (100) Intake and Output 11/14/18 11/14/18 11/15/18 1515:00 23:00 07:00 IntakeIntake Total 650 ml 240 ml 250 ml OutputOutput Total 950 ml 400 ml BalanceBalance -300 ml -160 ml 250 ml Exam General: Patient is sitting up in bed. mildly confused Neck: Supple Respiratory: Clear to auscultation bilaterally. no wheezing or rhonchi Cardiovascular: regular rate and rhythm, no obvious murmurs Gastrointestinal: soft, non-tender to palpation, nondistended, bowel sounds heard. ext: Moves all extremities spontaneously. Skin: No new skin lesions. Results Results 24hrs Laboratory Tests Test 11/14/18 17:01 11/14/18 20:15 11/15/18 04:38 11/15/18 08:19 Bedside Glucose 158 119 110 White Blood Count 6.8 # Red Blood Count 4.03 L Hemoglobin 10.4 L Hematocrit 33.9 L Mean Corpuscular 84.1 Volume Mean Corpuscular 25.8 L Hemoglobin Mean Corpuscular 30.7 L Hemoglobin Concent Red Cell 13.5 Distribution Width Platelet Count 254 Mean Platelet Volume 10.3 Immature 0.400 Granulocytes % Neutrophils % 65.8 Lymphocytes % 15.4 Monocytes % 17.3 H Eosinophils % 0.7 Basophils % 0.4 Nucleated Red Blood 0.0 Cells % Immature 0.030 Granulocytes # Neutrophils # 4.4 Lymphocytes # 1.0 Monocytes # 1.2 H Eosinophils # 0.1 Basophils # 0.0 Nucleated Red Blood 0.0 Cells # Sodium Level 141 Potassium Level 4.1 Chloride Level 109 Carbon Dioxide Level 24 Anion Gap 8 Blood Urea Nitrogen 36 H Creatinine 1.15 Glucose Level 141 Calcium Level 9.9 Phosphorus Level 3.7 Magnesium Level 1.8 Albumin 3.6 Medications Medication Current Medications Aspirin (Halfprin) 81 mg DAILY PO Last administered on 11/15/18 08:22; Admin Dose 81 MG; Start 11/05/18 at 09:00 Atorvastatin Calcium (Lipitor) 40 mg QHS PO Last administered on 11/14/18 20:30; Admin Dose 40 MG; Start 11/04/18 at 21:00 Brimonidine Tartrate (Alphagan P 0.15%) 1 drop Q8 BOTH EYES Last administered on 11/15/18 05:51; Admin Dose 1 DROP; Start 11/04/18 at 22:00 Docusate Sodium (Colace) 100 mg BID PO Last administered on 11/15/18 08:22; Admin Dose 100 MG; Start 11/04/18 at 21:00 Famotidine (Pepcid) 20 mg BID PO Last administered on 11/15/18 08:23; Admin Dose 20 MG; Start 11/04/18 at 21:00 Isosorbide Mononitrate (Imdur) 30 mg DAILY PO Last administered on 11/15/18 08:23; Admin Dose 30 MG; Start 11/05/18 at 09:00 Latanoprost (Xalatan) 1 drop QHS BOTH EYES Last administered on 11/14/18 20:32; Admin Dose 1 DROP; Start 11/04/18 at 21:00 Timolol Maleate (Timoptic 0.25%) 1 drop BID BOTH EYES Last administered on 11/15/18 08:25; Admin Dose 1 DROP; Start 11/04/18 at 21:00 IV Flush (NS 3 ml) 3 ml PER PROTOCOL IV ; Start 11/04/18 at 18:30 Ondansetron HCl (Zofran Inj) 4 mg Q6H PRN IV NAUSEA/VOMITING; Start 11/04/18 at 18:30 Acetaminophen (Tylenol Tab) 650 mg Q6H PRN PO .PAIN 1-3 OR TEMP Last administered on 11/05/18at 11:58; Admin Dose 650 MG; Start 11/04/18 at 18:30 Lorazepam (Ativan) 2 mg Q10MIN PRN IV seizures Last administered on 11/13/18 16:55; Admin Dose 2 MG; Start 11/04/18 at 18:30 Insulin Aspart (Novolog Insulin Pen) NOVOLOG *MILD* ALGORITHM WITH MEALS BEDTIME SC Last administered on 11/15/18at 12:39; Admin Dose 1 UNIT; Start 11/04/18 at 21:00 Miscellaneous Information 1 ea NOTE XX ; Start 11/04/18 at 19:00 Glucose (Glutose) 15 gm Q15M PRN PO DECREASED GLUCOSE; Start 11/04/18 at 19:00 Glucose (Glutose) 22.5 gm Q15M PRN PO DECREASED GLUCOSE; Start 11/04/18 at 19:00 Dextrose (D50w Syringe) 25 ml Q15M PRN IV DECREASED GLUCOSE; Start 11/04/18 at 19:00 Dextrose (D50w Syringe) 50 ml Q15M PRN IV DECREASED GLUCOSE; Start 11/04/18 at 19:00 Glucagon (Glucagen) 1 mg Q15M PRN IM DECREASED GLUCOSE; Start 11/04/18 at 19:00 Glucose (Glutose) 15 gm Q15M PRN BUCCAL DECREASED GLUCOSE; Start 11/04/18 at 19:00 Amlodipine Besylate (Norvasc) 10 mg DAILY PO Last administered on 11/15/18 08:23; Admin Dose 10 MG; Start 11/05/18 at 00:00 Hydralazine HCl (Apresoline) 10 mg Q4H PRN IV sbp >160; Start 11/05/18 at 12:00 Metformin HCl (Glucophage) 500 mg BID WITH MEALS PO Last administered on 11/15/18 08:22; Admin Dose 500 MG; Start 11/05/18 at 18:00 Lidocaine (Lidoderm) 1 patch DAILY TD Last administered on 11/15/18 08:21; Admin Dose 1 PATCH; Start 11/09/18 at 11:00 Cyclobenzaprine HCl (Flexeril) 10 mg Q8 PO Last administered on 11/15/18 05:51; Admin Dose 10 MG; Start 11/10/18 at 15:30 Prednisone (Prednisone) 40 mg DAILY PO Last administered on 11/15/18 08:32; Admin Dose 40 MG; Start 11/13/18 at 09:00 Hydromorphone HCl (Dilaudid) 1 mg Q4H PRN IV SEVERE PAIN LEVEL 7-10 Last administered on 11/15/18 10:33; Admin Dose 1 MG; Start 11/13/18 at 09:30 Oxycodone HCl (Oxycontin) 10 mg TID PO Last administered on 11/15/18 12:39; Admin Dose 10 MG; Start 11/13/18 at 13:00 Ceftriaxone Sodium 50 ml @ 100 mls/hr Q24H IVPB Last administered on 11/14/18 14:01; Admin Dose 100 MLS/HR; Start 11/13/18 at 14:00 Vancomycin HCl (Vanco Iv Per Pharmacy) VANCOMYCIN PER PHARMACY PER PROTOCOL XX ; Start 11/13/18 at 12:30 Vancomycin/Sodium Chloride 250 ml @ 125 mls/hr Q12H IVPB Last administered on 11/15/18 08:24; Admin Dose 125 MLS/HR; Start 11/14/18 at 20:00 Trazodone HCl (Desyrel) 150 mg QHS PRN PO insomnia; Start 11/15/18 at 12:00 Melatonin (Melatonin) 5 mg HS PO ; Start 11/15/18 at 21:00 NATHAN PHELPS MD Nov 15, 2018 12:59
[2018-11-15] MEDS: CEFTRIAXONE 2 GM/50 ML (PMX) 50 ML IVPB SCH (13:18)
[2018-11-15 14:21] VITALS: BP 120/67; PULSE 90; RESP 18
--- NOTE | 2018-11-15 14:23 | CONS ---
Consultation Date/Type/Reason Admit Date/Time Nov 04, 2018 at 18:10 Initial Consult Date SUBJECTIVE: The patient is awake, afebrile . Complaining of back pain. VS: stable T: 98.7 LABS: Reviewed. MRI of thoracic and lumbar spine : IMPRESSION: 1. No acute fractures or traumatic subluxations with straightening of the normal lumbar lordosis 2. 4 mm left subarticular recess disc protrusion at T11-12 with moderate left subarticular recess stenosis. Recommend correlation with a left T12 radiculopathy. 3. 4 mm left subarticular recess disc extrusion at L4-5 with moderate left subarticular recess stenosis. Recommend correlation with a left L5 radiculopathy. 4. Small 2 mm central disc protrusion and annular tear at L2-3 with mild central canal stenosis 5. Multilevel broad-based disc osteophyte complexes at the L3-4 through L5-S1 levels with severe central canal stenosis at L4-5 and L5-S1. 6. Multilevel neural foraminal stenosis at the L2-3 through L5-S1 levels as indicated above. 7. Multilevel facet ligamentum flavum osteoarthropathy ANTIMICROBIALS: The patient is on IV vancomycin and Rocephin. ALLERGIES: HE IS NOT ALLERGIC TO ANY ANTIBIOTICS. PHYSICAL EXAMINATION: GENERAL: This is well-developed, obese, elderly -[place] man who is alert, in no distress. HEENT: Head atraumatic, normocephalic. NECK: Supple. CHEST: Rise symmetrical. Breath sounds diminished to bases. HEART: S1, S2. ABDOMEN: Soft, bowel sounds present. ASSESSMENT: 1. Back pain, possibly secondary to osteomyelitis, rule out phlegmon. 2. Status post syncopal episode. 3. Acute possibly on chronic kidney disease. 4. Diabetes. 5. Hypertension. PLAN: The patient is stable. Per MRI no diskitis noted. Continue current treatment and pain management. Follow neurology recommendations. Requesting Provider: AVELINO HINTON Date/Time of Note DATE: 11/15/18 TIME: 14:19 Exam/Review of Systems Exam Vitals Vital Signs Date Temp Pulse Resp B/P (MAP) Pulse Ox O2 O2 Flow FiO2 Time Delivery Rate 11/15/18 98.7 71 18 144/79 99 Room Air 07:17 (100) Intake and Output 11/14/18 11/14/18 11/15/18 1515:00 23:00 07:00 IntakeIntake Total 650 ml 240 ml 250 ml OutputOutput Total 950 ml 400 ml BalanceBalance -300 ml -160 ml 250 ml Results Result Diagram: 11/15/18 0438 11/15/18 0438 Results 24hrs Laboratory Tests Test 11/14/18 17:01 11/14/18 20:15 11/15/18 04:38 11/15/18 08:19 Bedside Glucose 158 119 110 White Blood Count 6.8 # Red Blood Count 4.03 L Hemoglobin 10.4 L Hematocrit 33.9 L Mean Corpuscular 84.1 Volume Mean Corpuscular 25.8 L Hemoglobin Mean Corpuscular 30.7 L Hemoglobin Concent Red Cell 13.5 Distribution Width Platelet Count 254 Mean Platelet Volume 10.3 Immature 0.400 Granulocytes % Neutrophils % 65.8 Lymphocytes % 15.4 Monocytes % 17.3 H Eosinophils % 0.7 Basophils % 0.4 Nucleated Red Blood 0.0 Cells % Immature 0.030 Granulocytes # Neutrophils # 4.4 Lymphocytes # 1.0 Monocytes # 1.2 H Eosinophils # 0.1 Basophils # 0.0 Nucleated Red Blood 0.0 Cells # Sodium Level 141 Potassium Level 4.1 Chloride Level 109 Carbon Dioxide Level 24 Anion Gap 8 Blood Urea Nitrogen 36 H Creatinine 1.15 Glucose Level 141 Calcium Level 9.9 Phosphorus Level 3.7 Magnesium Level 1.8 Albumin 3.6 Test 11/15/18 12:33 Bedside Glucose 163 Medications Medication Current Medications Aspirin (Halfprin) 81 mg DAILY PO Last administered on 11/15/18 08:22; Admin Dose 81 MG; Start 11/05/18 at 09:00 Atorvastatin Calcium (Lipitor) 40 mg QHS PO Last administered on 11/14/18at 20:30; Admin Dose 40 MG; Start 11/04/18 at 21:00 Brimonidine Tartrate (Alphagan P 0.15%) 1 drop Q8 BOTH EYES Last administered on 11/15/18 13:16; Admin Dose 1 DROP; Start 11/04/18 at 22:00 Docusate Sodium (Colace) 100 mg BID PO Last administered on 11/15/18 08:22; Admin Dose 100 MG; Start 11/04/18 at 21:00 Famotidine (Pepcid) 20 mg BID PO Last administered on 7/28/19at 08:23; Admin Dose 20 MG; Start 11/04/18 at 21:00 Isosorbide Mononitrate (Imdur) 30 mg DAILY PO Last administered on 11/15/18 08:23; Admin Dose 30 MG; Start 11/05/18 at 09:00 Latanoprost (Xalatan) 1 drop QHS BOTH EYES Last administered on 11/14/18at 20:32; Admin Dose 1 DROP; Start 11/04/18 at 21:00 Timolol Maleate (Timoptic 0.25%) 1 drop BID BOTH EYES Last administered on 11/15/18 08:25; Admin Dose 1 DROP; Start 11/04/18 at 21:00 IV Flush (NS 3 ml) 3 ml PER PROTOCOL IV ; Start 11/04/18 at 18:30 Ondansetron HCl (Zofran Inj) 4 mg Q6H PRN IV NAUSEA/VOMITING; Start 11/04/18 at 18:30 Acetaminophen (Tylenol Tab) 650 mg Q6H PRN PO .PAIN 1-3 OR TEMP Last administe red on 11/05/18at 11:58; Admin Dose 650 MG; Start 11/04/18 at 18:30 Lorazepam (Ativan) 2 mg Q10MIN PRN IV seizures Last administered on 11/13/18at 16:55; Admin Dose 2 MG; Start 11/04/18 at 18:30 Insulin Aspart (Novolog Insulin Pen) NOVOLOG *MILD* ALGORITHM WITH MEALS BEDTIME SC Last administered on 11/15/18at 12:39; Admin Dose 1 UNIT; Start 11/04/18 at 21:00 Miscellaneous Information 1 ea NOTE XX ; Start 11/04/18 at 19:00 Glucose (Glutose) 15 gm Q15M PRN PO DECREASED GLUCOSE; Start 11/04/18 at 19:00 Glucose (Glutose) 22.5 gm Q15M PRN PO DECREASED GLUCOSE; Start 11/04/18 at 19:00 Dextrose (D50w Syringe) 25 ml Q15M PRN IV DECREASED GLUCOSE; Start 11/04/18 at 19:00 Dextrose (D50w Syringe) 50 ml Q15M PRN IV DECREASED GLUCOSE; Start 11/04/18 at 19:00 Glucagon (Glucagen) 1 mg Q15M PRN IM DECREASED GLUCOSE; Start 11/04/18 at 19:00 Glucose (Glutose) 15 gm Q15M PRN BUCCAL DECREASED GLUCOSE; Start 11/04/18 at 19:00 Amlodipine Besylate (Norvasc) 10 mg DAILY PO Last administered on 11/15/18 08:23; Admin Dose 10 MG; Start 11/05/18 at 00:00 Hydralazine HCl (Apresoline) 10 mg Q4H PRN IV sbp >160; Start 11/05/18 at 12:00 Metformin HCl (Glucophage) 500 mg BID WITH MEALS PO Last administered on 11/15/18 08:22; Admin Dose 500 MG; Start 11/05/18 at 18:00 Lidocaine (Lidoderm) 1 patch DAILY TD Last administered on 11/15/18 08:21; Admin Dose 1 PATCH; Start 11/09/18 at 11:00 Cyclobenzaprine HCl (Flexeril) 10 mg Q8 PO Last administered on 11/15/18 13:15; Admin Dose 10 MG; Start 11/10/18 at 15:30 Prednisone (Prednisone) 40 mg DAILY PO Last administered on 11/15/18 08:32; Admin Dose 40 MG; Start 11/13/18 at 09:00 Hydromorphone HCl (Dilaudid) 1 mg Q4H PRN IV SEVERE PAIN LEVEL 7-10 Last administered on 11/15/18 10:33; Admin Dose 1 MG; Start 11/13/18 at 09:30 Oxycodone HCl (Oxycontin) 10 mg TID PO Last administered on 11/15/18 12:39; Admin Dose 10 MG; Start 11/13/18 at 13:00 Ceftriaxone Sodium 50 ml @ 100 mls/hr Q24H IVPB Last administered on 11/15/18 13:18; Admin Dose 100 MLS/HR; Start 11/13/18 at 14:00 Vancomycin HCl (Vanco Iv Per Pharmacy) VANCOMYCIN PER PHARMACY PER PROTOCOL XX ; Start 11/13/18 at 12:30 Vancomycin/Sodium Chloride 250 ml @ 125 mls/hr Q12H IVPB Last administered on 11/15/18 08:24; Admin Dose 125 MLS/HR; Start 11/14/18 at 20:00 Trazodone HCl (Desyrel) 150 mg QHS PRN PO insomnia; Start 11/15/18 at 12:00 Melatonin (Melatonin) 5 mg HS PO ; Start 11/15/18 at 21:00 Miscellaneous Information (*Rx Drug Level Order Reminder*) VANCO TROUGH @ 0,700 0700 ONCE XX ; Start 11/16/18 at 07:00; Stop 11/16/18 at 07:01 ELVIS HYDE Nov 15, 2018 14:23
[2018-11-15] MEDS: ATORVASTATIN 40 MG TAB PO SCH (20:40)
[2018-11-15] MEDS: MELATONIN 5 MG TABLET PO SCH (20:40)
[2018-11-15] MEDS: LATANOPROST 0.005% 2.5 ML OPH BOTH EYES SCH (20:42)
[2018-11-15 20:55] VITALS: BP 158/92; PULSE 79; RESP 18
[2018-11-15 21:02] VITALS: BP 158/92; PULSE 79; RESP 19
[2018-11-15] MEDS: traZODone 50 MG TAB PO PRN (23:13)
[2018-11-16 02:11] VITALS: BP 135/64; PULSE 80; RESP 20
[2018-11-16] MEDS: CYCLOBENZAPRINE 10 MG TAB PO SCH ×2 (06:06→14:38)
[2018-11-16] MEDS: BRIMONIDINE 0.15% 5 ML OPH BOTH EYES SCH ×3 (06:06→21:57)
[2018-11-16] MEDS: HYDROmorphONE 1 MG/ML SYG IV PRN ×2 (06:07→10:15)
[2018-11-16 07:20] VITALS: BP 140/76; PULSE 77; RESP 18
[2018-11-16] MEDS: INSULIN ASPART [NOVOLOG] 3 ML PEN SC SCH ×4 (08:00→20:42)
[2018-11-16] MEDS: VANCOMYCIN 750 MG (PMX) 250 ML IVPB SCH (08:30)
[2018-11-16] MEDS: predniSONE 20 MG TAB PO SCH (08:30)
[2018-11-16] MEDS: metFORMIN 500 MG TAB PO SCH ×2 (08:30→17:30)
[2018-11-16] MEDS: oxyCODONE (CR) 10 MG TAB [oxyCONTIN] PO SCH ×3 (08:31→20:42)
[2018-11-16] MEDS: ISOSORBIDE MONONITRATE(SR)30 MG TAB PO SCH (08:31)
[2018-11-16] MEDS: DOCUSATE SODIUM 100 MG CAP PO SCH ×2 (08:32→20:41)
[2018-11-16] MEDS: ASPIRIN (EC) 81 MG TAB PO SCH (08:32)
[2018-11-16] MEDS: AMLODIPINE 10 MG TAB PO SCH (08:32)
[2018-11-16] MEDS: FAMOTIDINE 20 MG TAB PO SCH ×2 (08:32→20:41)
[2018-11-16] MEDS: TIMOLOL 0.25% 5 ML OPH BOTH EYES SCH ×2 (08:33→20:44)
[2018-11-16] MEDS: LIDOCAINE 5% PATCH TD SCH (08:36)
[2018-11-16] MEDS ORDERED: ZOLPIDEM 5 MG TAB PO PRN (12:00)
--- NOTE | 2018-11-16 12:04 | PN ---
Date/Time of Note Date/Time of Note DATE: 11/16/18 TIME: 12:04 Objective Vitals Vital Signs Date Temp Pulse Resp B/P (MAP) Pulse Ox O2 O2 Flow FiO2 Time Delivery Rate 11/16/18 98.1 77 18 140/76 98 Room Air 07:20 (97) Intake and Output 11/15/18 11/15/18 11/16/18 1515:00 23:00 07:00 IntakeIntake Total 1390 ml 720 ml 1090 ml OutputOutput Total 3300 ml 900 ml 1850 ml BalanceBalance -1910 ml -180 ml -760 ml Results Result Diagram: 11/16/1871811/16/18 0720 Medications Medications Current Medications Aspirin (Halfprin) 81 mg DAILY PO Last administered on 11/16/18 08:32; Admin Dose 81 MG; Start 11/05/18 at 09:00 Atorvastatin Calcium (Lipitor) 40 mg QHS PO Last administered on 11/15/18 20:40; Admin Dose 40 MG; Start 11/04/18 at 21:00 Brimonidine Tartrate (Alphagan P 0.15%) 1 drop Q8 BOTH EYES Last administered on 11/16/18 06:06; Admin Dose 1 DROP; Start 11/04/18 at 22:00 Docusate Sodium (Colace) 100 mg BID PO Last administered on 11/16/18 08:32; Admin Dose 100 MG; Start 11/04/18 at 21:00 Famotidine (Pepcid) 20 mg BID PO Last administered on 11/16/18 08:32; Admin Dose 20 MG; Start 11/04/18 at 21:00 Isosorbide Mononitrate (Imdur) 30 mg DAILY PO Last administered on 11/16/18 08:31; Admin Dose 30 MG; Start 11/05/18 at 09:00 Latanoprost (Xalatan) 1 drop QHS BOTH EYES Last administered on 11/15/18 20:42; Admin Dose 1 DROP; Start 11/04/18 at 21:00 Timolol Maleate (Timoptic 0.25%) 1 drop BID BOTH EYES Last administered on 11/16/18 08:33; Admin Dose 1 DROP; Start 11/04/18 at 21:00 IV Flush (NS 3 ml) 3 ml PER PROTOCOL IV ; Start 11/04/18 at 18:30 Ondansetron HCl (Zofran Inj) 4 mg Q6H PRN IV NAUSEA/VOMITING; Start 11/04/18 at 18:30 Acetaminophen (Tylenol Tab) 650 mg Q6H PRN PO .PAIN 1-3 OR TEMP Last administered on 11/05/18at 11:58; Admin Dose 650 MG; Start 11/04/18 at 18:30 Insulin Aspart (Novolog Insulin Pen) NOVOLOG *MILD* ALGORITHM WITH MEALS BEDTIME SC Last administered on 11/15/18 17:28; Admin Dose 1 UNIT; Start 11/04/18 at 21:00 Miscellaneous Information 1 ea NOTE XX ; Start 11/04/18 at 19:00 Glucose (Glutose) 15 gm Q15M PRN PO DECREASED GLUCOSE; Start 11/04/18 at 19:00 Glucose (Glutose) 22.5 gm Q15M PRN PO DECREASED GLUCOSE; Start 11/04/18 at 19:00 Dextrose (D50w Syringe) 25 ml Q15M PRN IV DECREASED GLUCOSE; Start 11/04/18 at 19:00 Dextrose (D50w Syringe) 50 ml Q15M PRN IV DECREASED GLUCOSE; Start 11/04/18 at 19:00 Glucagon (Glucagen) 1 mg Q15M PRN IM DECREASED GLUCOSE; Start 11/04/18 at 19:00 Glucose (Glutose) 15 gm Q15M PRN BUCCAL DECREASED GLUCOSE; Start 11/04/18 at 19:00 Amlodipine Besylate (Norvasc) 10 mg DAILY PO Last administered on 11/16/18at 08:32; Admin Dose 10 MG; Start 11/05/18 at 00:00 Hydralazine HCl (Apresoline) 10 mg Q4H PRN IV sbp >160; Start 11/05/18 at 12:00 Metformin HCl (Glucophage) 500 mg BID WITH MEALS PO Last administered on 11/16/18 08:30; Admin Dose 500 MG; Start 11/05/18 at 18:00 Lidocaine (Lidoderm) 1 patch DAILY TD Last administered on 11/16/18 08:36; Admin Dose 1 PATCH; Start 11/09/18 at 11:00 Cyclobenzaprine HCl (Flexeril) 10 mg Q8 PO Last administered on 11/16/18 06:06; Admin Dose 10 MG; Start 11/10/18 at 15:30 Oxycodone HCl (Oxycontin) 10 mg TID PO Last administered on 11/16/18at 08:31; Admin Dose 10 MG; Start 11/13/18 at 13:00 Ceftriaxone Sodium 50 ml @ 100 mls/hr Q24H IVPB Last administered on 11/15/18at 13:18; Admin Dose 100 MLS/HR; Start 11/13/18 at 14:00 Vancomycin HCl (Vanco Iv Per Pharmacy) VANCOMYCIN PER PHARMACY PER PROTOCOL XX ; Start 11/13/18 at 12:30 Trazodone HCl (Desyrel) 150 mg QHS PRN PO insomnia Last administered on 11/15/18at 23:13; Admin Dose 150 MG; Start 11/15/18 at 12:00 Melatonin (Melatonin) 5 mg HS PO Last administered on 11/15/18at 20:40; Admin Dose 5 MG; Start 11/15/18 at 21:00 Vancomycin HCl 250 ml @ 125 mls/hr Q12H IVPB ; Start 11/16/18 at 21:00 Prednisone (Prednisone) 30 mg DAILY PO ; Start 11/17/18 at 09:00 Hydromorphone HCl (Dilaudid) 1.5 mg Q4H PRN IV SEVERE PAIN LEVEL 7-10; Start 11/16/18 at 12:00 Zolpidem Tartrate (Ambien) 5 mg HS MAY REPEAT X 1 PRN PO INSOMNIA; Start 11/16/18 at 12:00; Status UNV VTE Prophylaxis Risk score (from [facility])>0 risk: 4 SCD applied (from [facility]): No SCD contraindication: other Lines/Catheters IV Catheter Type: Merlos in Place: No Assessment/Plan Hospital Course Subjective Patient very upset that his back pain is not well controlled Objective Physical exam General: Patient is laying in bed and answers questions appropriately Mentation: Patient is alert and oriented 4, Head: Normocephalic atraumatic Eyes: EOMI, pupils reactive to light Neck: Supple, nontender, midline Respiratory: Clear to auscultation bilaterally Cardiovascular: regular rate, no obvious murmurs Gastrointestinal: non-tender to palpation, bowel sounds heard. Neurological: Moves all extremities spontaneously Skin: No new skin lesions Assessment/Plan 1. Severe lower back pain - MRI results with no noted OM. Discussed findings of stenosis and disc bulging with patient. He is refusing surgical intervention and discussed need for PT and supportive care - continue pain control per Pain management recommendations, will increase dose of dilaudid. - has not been sleeping well either, trazodone and ambien as needed - originally, before MRI, CT L spine results noted and concern for ongoing osteomyelitis. [facility] from August when he was initially diagnosed with OM. He was seen by surgeon who did not recommend any surgical intervention. He was discharged on vanco and rocephin for 6 weeks therapy. Patient does not remember if he was reexamined after completion of antibiotics - ID consultation appreciated and will touch base on their thoughts about IV antibiotics, possible DC antibiotics now that MRI is negative 2. Acute syncope episode, resolved - No further episodes since admission. - Neurology consultation appreciate - Imaging results noted 3. Slurred speech, resolved - stroke work up completes and imaging studies negative for acute issues - Neurology input appreciated 4. LE swelling- improved - Ultrasound venous bilaterally negative for DVT 5. Chronic foot pain - Secondary to fall many years ago, same accident as his back pain 6. Acute kidney injury versus chronic kidney disease - Resolved, monitor closely 7. Recent history of osteomyelitis - treated at [facility] 8. Hypertension - Continue home meds 9. Diabetes mellitus - A1c noted - will only continue metformin at time of discharge 10. Questionable coronary artery disease - Continue baby aspirin 11. Glaucoma - Continue home eye drops 12. Active hepatitis C - will need outpatient follow up 13. Chronic debility - Patient had a fall from a ladder a couple years ago which is the cause of his chronic back pain as well as chronic foot pain - Wheelchair-bound 14. Anemia - Mild, monitor for now 15. Disposition -We will need to touch base with infectious disease regarding antibiotics, patient will decide if he wants [facility] facility as he is requiring large doses of pain medications which cannot be accommodated in the outpatient setting, will titrate pain medication to patient's comfort as he is stating that he is very tolerant and current dose does not have any effect. AVELINO HINTON Nov 16, 2018 12:04
[2018-11-16] MEDS: HYDROmorphONE 2 MG/ML SYG IV PRN ×3 (13:14→21:56)
[2018-11-16 14:22] VITALS: BP 123/72; PULSE 92; RESP 18
--- NOTE | 2018-11-16 15:30 | CONS ---
Assessment/Plan Assessment/Plan Hospital Course (Demo Recall) SUBJECTIVE: The patient is awake. Looks comfortable ANTIMICROBIALS: None back pain ALLERGIES: HE IS NOT ALLERGIC TO ANY ANTIBIOTICS. PHYSICAL EXAMINATION: GENERAL: This is well-developed, obese, elderly -[place] man who is alert, in no distress. HEENT: Head atraumatic, normocephalic. NECK: Supple. CHEST: Rise symmetrical. Breath sounds diminished to bases. HEART: S1, S2. ABDOMEN: Soft, bowel sounds present. ASSESSMENT: 1. Back pain 2. Status post syncopal episode. 3. Acute possibly on chronic kidney disease. 4. Diabetes. 5. Hypertension. PLAN: Stable spinal MRI revealed no evidence of discitis or osteomyelitis, antibiotics were discontinued, continue pain management, follow Ortho recommendations Consultation Date/Type/Reason Admit Date/Time Nov 04, 2018 at 18:10 Initial Consult Date Type of Consult id Requesting Provider: AVELINO HINTON Date/Time of Note DATE: 11/16/18 TIME: 15:29 Exam/Review of Systems Exam Vitals Vital Signs Date Temp Pulse Resp B/P (MAP) Pulse Ox O2 O2 Flow FiO2 Time Delivery Rate 11/16/18 98.1 92 18 123/72 97 Room Air 14:22 (89) Intake and Output 11/15/18 11/15/18 11/16/18 1515:00 23:00 07:00 IntakeIntake Total 1390 ml 720 ml 1090 ml OutputOutput Total 3300 ml 900 ml 1850 ml BalanceBalance -1910 ml -180 ml -760 ml Results Result Diagram: 11/16/18 0719 11/16/18 0720 Results 24hrs Laboratory Tests Test 11/15/18 17:25 11/15/18 20:34 11/16/18 07:19 11/16/18 07:20 Bedside Glucose 158 116 White Blood Count 6.7 Red Blood Count 4.09 L Hemoglobin 10.7 L Hematocrit 34.1 L Mean Corpuscular 83.4 Volume Mean Corpuscular 26.2 L Hemoglobin Mean Corpuscular 31.4 L Hemoglobin Concent Red Cell 13.5 Distribution Width Platelet Count 272 Mean Platelet Volume 10.1 Immature 0.400 Granulocytes % Neutrophils % 64.3 Lymphocytes % 15.0 Monocytes % 19.3 H Eosinophils % 0.9 Basophils % 0.1 Nucleated Red Blood 0.0 Cells % Immature 0.030 Granulocytes # Neutrophils # 4.3 Lymphocytes # 1.0 Monocytes # 1.3 H Eosinophils # 0.1 Basophils # 0.0 Nucleated Red Blood 0.0 Cells # Vancomycin Level 10.2 Trough Sodium Level 142 Potassium Level 4.0 Chloride Level 108 Carbon Dioxide Level 24 Anion Gap 10 Blood Urea Nitrogen 35 H Creatinine 1.21 Glucose Level 124 Calcium Level 9.9 Phosphorus Level 4.1 Magnesium Level 2.0 Albumin 3.7 Test 11/16/18 08:09 11/16/18 11:57 Bedside Glucose 125 138 Medications Medication Current Medications Aspirin (Halfprin) 81 mg DAILY PO Last administered on 11/16/18 08:32; Admin Dose 81 MG; Start 11/05/18 at 09:00 Atorvastatin Calcium (Lipitor) 40 mg QHS PO Last administered on 11/15/18 20:40; Admin Dose 40 MG; Start 11/04/18 at 21:00 Brimonidine Tartrate (Alphagan P 0.15%) 1 drop Q8 BOTH EYES Last administered on 11/16/18 06:06; Admin Dose 1 DROP; Start 11/04/18 at 22:00 Docusate Sodium (Colace) 100 mg BID PO Last administered on 11/16/18 08:32; Admin Dose 100 MG; Start 11/04/18 at 21:00 Famotidine (Pepcid) 20 mg BID PO Last administered on 11/16/18 08:32; Admin Dose 20 MG; Start 11/04/18 at 21:00 Isosorbide Mononitrate (Imdur) 30 mg DAILY PO Last administered on 11/16/18 08:31; Admin Dose 30 MG; Start 11/05/18 at 09:00 Latanoprost (Xalatan) 1 drop QHS BOTH EYES Last administered on 11/15/18 20:42; Admin Dose 1 DROP; Start 11/04/18 at 21:00 Timolol Maleate (Timoptic 0.25%) 1 drop BID BOTH EYES Last administered on 11/16/18 08:33; Admin Dose 1 DROP; Start 11/04/18 at 21:00 IV Flush (NS 3 ml) 3 ml PER PROTOCOL IV ; Start 11/04/18 at 18:30 Ondansetron HCl (Zofran Inj) 4 mg Q6H PRN IV NAUSEA/VOMITING; Start 11/04/18 at 18:30 Acetaminophen (Tylenol Tab) 650 mg Q6H PRN PO .PAIN 1-3 OR TEMP Last administered on 11/05/18at 11:58; Admin Dose 650 MG; Start 11/04/18 at 18:30 Insulin Aspart (Novolog Insulin Pen) NOVOLOG *MILD* ALGORITHM WITH MEALS BEDTIME SC Last administered on 11/15/18 17:28; Admin Dose 1 UNIT; Start 11/04/18 at 21:00 Miscellaneous Information 1 ea NOTE XX ; Start 11/04/18 at 19:00 Glucose (Glutose) 15 gm Q15M PRN PO DECREASED GLUCOSE; Start 11/04/18 at 19:00 Glucose (Glutose) 22.5 gm Q15M PRN PO DECREASED GLUCOSE; Start 11/04/18 at 19:00 Dextrose (D50w Syringe) 25 ml Q15M PRN IV DECREASED GLUCOSE; Start 11/04/18 at 19:00 Dextrose (D50w Syringe) 50 ml Q15M PRN IV DECREASED GLUCOSE; Start 11/04/18 at 19:00 Glucagon (Glucagen) 1 mg Q15M PRN IM DECREASED GLUCOSE; Start 11/04/18 at 19:00 Glucose (Glutose) 15 gm Q15M PRN BUCCAL DECREASED GLUCOSE; Start 11/04/18 at 19:00 Amlodipine Besylate (Norvasc) 10 mg DAILY PO Last administered on 11/16/18 08:32; Admin Dose 10 MG; Start 11/05/18 at 00:00 Hydralazine HCl (Apresoline) 10 mg Q4H PRN IV sbp >160; Start 11/05/18 at 12:00 Metformin HCl (Glucophage) 500 mg BID WITH MEALS PO Last administered on 11/16/18 08:30; Admin Dose 500 MG; Start 11/05/18 at 18:00 Lidocaine (Lidoderm) 1 patch DAILY TD Last administered on 11/16/18 08:36; Admin Dose 1 PATCH; Start 11/09/18 at 11:00 Cyclobenzaprine HCl (Flexeril) 10 mg Q8 PO Last administered on 11/16/18 14:38; Admin Dose 10 MG; Start 11/10/18 at 15:30 Oxycodone HCl (Oxycontin) 10 mg TID PO Last administered on 11/16/18 12:41; Admin Dose 10 MG; Start 11/13/18 at 13:00 Trazodone HCl (Desyrel) 150 mg QHS PRN PO insomnia Last administered on 11/15/18 23:13; Admin Dose 150 MG; Start 11/15/18 at 12:00 Melatonin (Melatonin) 5 mg HS PO Last administered on 11/15/18at 20:40; Admin Dose 5 MG; Start 11/15/18 at 21:00 Prednisone (Prednisone) 30 mg DAILY PO ; Start 11/17/18 at 09:00 Hydromorphone HCl (Dilaudid) 1.5 mg Q4H PRN IV SEVERE PAIN LEVEL 7-10 Last administered on 11/16/18 13:14; Admin Dose 1.5 MG; Start 11/16/18 at 12:00 Zolpidem Tartrate (Ambien) 5 mg HS MAY REPEAT X 1 PRN PO INSOMNIA; Start 11/16/18 at 12:00 ABRAM CASILLAS NP Nov 16, 2018 15:30
[2018-11-16] MEDS: MELATONIN 5 MG TABLET PO SCH (20:41)
[2018-11-16] MEDS: ATORVASTATIN 40 MG TAB PO SCH (20:41)
[2018-11-16] MEDS: LATANOPROST 0.005% 2.5 ML OPH BOTH EYES SCH (20:43)
[2018-11-16] MEDS ORDERED: VANCOMYCIN 1 GM 250 ML IVPB SCH (21:00)
[2018-11-16 21:19] VITALS: BP 156/88; PULSE 88; RESP 18
[2018-11-16] MEDS: traZODone 50 MG TAB PO PRN (22:34)
[2018-11-17 02:40] VITALS: BP 150/83; PULSE 83; RESP 18
[2018-11-17] MEDS: BRIMONIDINE 0.15% 5 ML OPH BOTH EYES SCH ×3 (06:42→22:08)
--- NOTE | 2018-11-17 07:14 | CONS ---
Assessment/Plan Assessment/Plan Assessment/Plan (Daily) Long conversation with patient November 16, 2018 concerning pain management. He has a history of lumbosacral spine stenosis, osteoarthritic changes past medical history of osteomyelitis. I have explained to patient that he will have chronic low back pain and probably for the rest of his life. Cannot control his pain 100% we can only make him as functional as possible with physical therapy exercise and weight loss. I have explained to him that increasing his opioids are not an option. He is currently on OxyContin 3 times daily low-dose and Percocet as needed. It would be better for him to be on nonsteroidal anti- inflammatory medications however the long-term potential problems with this g entleman may outweigh its benefits. He has an outpatient pain management physician who can adjust his pain control medications if he is discharged home. If he goes to [facility] I would suggest continue with current medications and trial to lowering his OxyContin and Percocet as much as possible. I believe this gentleman may have some abuse potential in the use of nonsteroidals can be of potential problem as well as escalating opioids. Medical problems include history of stroke syndrome Left lower extremity swelling not improved Chronic kidney injury History of osteomyelitis History of hypertension Type 2 diabetes History of coronary heart disease Personality disorder Consultation Date/Type/Reason Admit Date/Time Nov 04, 2018 at 18:10 Date/Time of Note DATE: 11/17/18 TIME: 07:12 Past Medical History Medical History: coronary artery disease, diabetes, high cholesterol, hypertension, other (Glaucoma) Home Meds Reported Medications Cyclobenzaprine Hcl* (Cyclobenzaprine Hcl*) 10 Mg Tablet, 10 MG PO Q8, #60 TAB 11/04/18 Diphenhydramine Hcl (Banophen) 25 Mg Capsule, 25 MG PO DAILY, CAP 11/04/18 Atorvastatin* (Atorvastatin*) 40 Mg Tablet, 40 MG PO QHS, #30 TAB 11/04/18 Aspirin* (Aspirin* EC) 81 Mg Tablet.dr, 81 MG PO DAILY, TAB 11/04/18 Hydrocodone/Acetaminophen ([place] 10-325 Tablet) 1 Each Tablet, 1 EACH PO Q8H PRN for NEEDED, TAB 11/04/18 Brimonidine Tartrate* (Brimonidine Tartrate*) 0.15%-10ML Drop Opht, 1 DROP BOTH EYES Q8, #1 EA 11/04/18 Trazodone Hcl* (Desyrel*) 50 Mg Tab, 50 MG PO BID, #60 TAB 11/04/18 Metformin Hcl* (Metformin Hcl*) 1,000 Mg Tablet, 1000 MG PO WITH BREAKFAST DINNE, #60 TAB 11/04/18 Latanoprost (Latanoprost) 2.5 Ml Drops, 1 DROP BOTH EYES QHS, #1 BOTTLE 11/04/18 Isosorbide Mononitrate* (Isosorbide Mononitrate*) 30 Mg Tab.er.24h, 30 MG PO DAILY, TAB 11/04/18 Amlodipine Besylate* (Amlodipine Besylate*) 10 Mg Tablet, 10 MG PO DAILY, #30 TAB 11/04/18 Famotidine* (Famotidine*) 20 Mg Tablet, 20 MG PO BID, #60 TAB 11/04/18 Timolol Maleate* (Timolol Maleate* Ophth) 0.25%-15ml Opht, 1 DROP BOTH EYES BID, #1 EA 11/04/18 Docusate Sodium* (Colace*) 100 Mg Capsule, 100 MG PO BID, #60 CAP 11/04/18 Glyburide* (Glyburide*) 5 Mg Tablet, 5 MG PO BID, #60 TAB 11/04/18 Medications Current Medications Aspirin (Halfprin) 81 mg DAILY PO Last administered on 11/16/18at 08:32; Admin Dose 81 MG; Start 11/05/18 at 09:00 Atorvastatin Calcium (Lipitor) 40 mg QHS PO Last administered on 11/16/18at 20:41; Admin Dose 40 MG; Start 11/04/18 at 21:00 Brimonidine Tartrate (Alphagan P 0.15%) 1 drop Q8 BOTH EYES Last administered on 11/17/18at 06:42; Admin Dose 1 DROP; Start 11/04/18 at 22:00 Docusate Sodium (Colace) 100 mg BID PO Last administered on 11/16/18at 20:41; Admin Dose 100 MG; Start 11/04/18 at 21:00 Famotidine (Pepcid) 20 mg BID PO Last administered on 11/16/18at 20:41; Admin Dose 20 MG; Start 11/04/18 at 21:00 Isosorbide Mononitrate (Imdur) 30 mg DAILY PO Last administered on 11/16/18 08 :31; Admin Dose 30 MG; Start 11/05/18 at 09:00 Latanoprost (Xalatan) 1 drop QHS BOTH EYES Last administered on 11/16/18 20:43; Admin Dose 1 DROP; Start 11/04/18 at 21:00 Timolol Maleate (Timoptic 0.25%) 1 drop BID BOTH EYES Last administered on 11/16/18 20:44; Admin Dose 1 DROP; Start 11/04/18 at 21:00 IV Flush (NS 3 ml) 3 ml PER PROTOCOL IV ; Start 11/04/18 at 18:30 Ondansetron HCl (Zofran Inj) 4 mg Q6H PRN IV NAUSEA/VOMITING; Start 11/04/18 at 18:30 Acetaminophen (Tylenol Tab) 650 mg Q6H PRN PO .PAIN 1-3 OR TEMP Last administered on 11/05/18 11:58; Admin Dose 650 MG; Start 11/04/18 at 18:30 Insulin Aspart (Novolog Insulin Pen) NOVOLOG *MILD* ALGORITHM WITH MEALS BEDTIME SC Last administered on 11/16/18 17:34; Admin Dose 2 UNIT; Start 11/04/18 at 21:00 Miscellaneous Information 1 ea NOTE XX ; Start 11/04/18 at 19:00 Glucose (Glutose) 15 gm Q15M PRN PO DECREASED GLUCOSE; Start 11/04/18 at 19:00 Glucose (Glutose) 22.5 gm Q15M PRN PO DECREASED GLUCOSE; Start 11/04/18 at 19:00 Dextrose (D50w Syringe) 25 ml Q15M PRN IV DECREASED GLUCOSE; Start 11/04/18 at 19:00 Dextrose (D50w Syringe) 50 ml Q15M PRN IV DECREASED GLUCOSE; Start 11/04/18 at 19:00 Glucagon (Glucagen) 1 mg Q15M PRN IM DECREASED GLUCOSE; Start 11/04/18 at 19:00 Glucose (Glutose) 15 gm Q15M PRN BUCCAL DECREASED GLUCOSE; Start 11/04/18 at 19:00 Amlodipine Besylate (Norvasc) 10 mg DAILY PO Last administered on 11/16/18 08:32; Admin Dose 10 MG; Start 11/05/18 at 00:00 Hydralazine HCl (Apresoline) 10 mg Q4H PRN IV sbp >160; Start 11/05/18 at 12:00 Metformin HCl (Glucophage) 500 mg BID WITH MEALS PO Last administered on 11/16/18at 17:30; Admin Dose 500 MG; Start 11/05/18 at 18:00 Oxycodone HCl (Oxycontin) 10 mg TID PO Last administered on 11/16/18at 20:42; Admin Dose 10 MG; Start 11/13/18 at 13:00 Trazodone HCl (Desyrel) 150 mg QHS PRN PO insomnia Last administered on 11/16/18 22:34; Admin Dose 150 MG; Start 11/15/18 at 12:00 Melatonin (Melatonin) 5 mg HS PO Last administered on 11/16/18at 20:41; Admin Dose 5 MG; Start 11/15/18 at 21:00 Prednisone (Prednisone) 30 mg DAILY PO ; Start 11/17/18 at 09:00 Hydromorphone HCl (Dilaudid) 1.5 mg Q4H PRN IV SEVERE PAIN LEVEL 7-10 Last administered on 11/16/18at 21:56; Admin Dose 1.5 MG; Start 11/16/18 at 12:00 Zolpidem Tartrate (Ambien) 5 mg HS MAY REPEAT X 1 PRN PO INSOMNIA; Start 11/16/18 at 12:00 Allergies: Coded Allergies: No Known Allergy (Unverified , 11/04/18) Social History Alcohol Use: other Smoking Status: Former smoker Drug Use: other Exam/Review of Systems Exam Vitals Vital Signs Date Temp Pulse Resp B/P (MAP) Pulse Ox O2 O2 Flow FiO2 Time Delivery Rate 11/17/18 98.1 83 18 150/83 93 Room Air 02:40 (105) Intake and Output 11/16/18 11/16/18 11/17/18 1515:00 23:00 07:00 IntakeIntake Total 490 ml 440 ml 240 ml OutputOutput Total 900 ml 350 ml 500 ml BalanceBalance -410 ml 90 ml -260 ml Constitutional: alert, oriented, well developed Psych: anxiety Head: normocephalic, atraumatic; No lacerations, No hematomas, No other Eyes: nl conjunctiva, EOMI, nl lids, nl sclera, PERRL; No icteric, No fundi, disc, No other Respiratory: clear to auscultation, normal air movement; No congested cough, No crackles/rales, No diminished breath sounds, No intercostal retraction, No labored breathing, No respirations, No tactile fremitus, No wheezing, No other Cardiovascular: regular rate and rhythm, nl pulses; No bruits, No diastolic murmur, No edema, No gallop, No irregular rhythm, No jugular venous distention (JVD), No murmurs/extra sounds, No rub, No systolic murmur, No S3, No S4, No other Gastrointestinal: soft, nl liver, spleen, non-tender; No ascites, No bowel sounds, No distended, No firm, No hepatomegaly, No mass, No rebound or guarding, No splenomegaly, No surgical scars, No tender, No other Neurological: LEATH[employer] II-XII intact, nl mental status, nl speech, nl strength; No confused, No DTR's symmetric, No focal weakness, No lethargic, No numbness, No reflexes, No unresponsive, No other Results Result Diagram: 11/17/18 0533 11/17/18 0533 Results 24hrs Laboratory Tests Test 11/16/18 07:19 11/16/18 07:20 11/16/18 08:09 11/16/18 11:57 White Blood Count 6.7 Red Blood Count 4.09 L Hemoglobin 10.7 L Hematocrit 34.1 L Mean Corpuscular 83.4 Volume Mean Corpuscular 26.2 L Hemoglobin Mean Corpuscular 31.4 L Hemoglobin Concent Red Cell 13.5 Distribution Width Platelet Count 272 Mean Platelet Volume 10.1 Immature 0.400 Granulocytes % Neutrophils % 64.3 Lymphocytes % 15.0 Monocytes % 19.3 H Eosinophils % 0.9 Basophils % 0.1 Nucleated Red Blood 0.0 Cells % Immature 0.030 Granulocytes # Neutrophils # 4.3 Lymphocytes # 1.0 Monocytes # 1.3 H Eosinophils # 0.1 Basophils # 0.0 Nucleated Red Blood 0.0 Cells # Vancomycin Level 10.2 Trough Sodium Level 142 Potassium Level 4.0 Chloride Level 108 Carbon Dioxide Level 24 Anion Gap 10 Blood Urea Nitrogen 35 H Creatinine 1.21 Glucose Level 124 Calcium Level 9.9 Phosphorus Level 4.1 Magnesium Level 2.0 Albumin 3.7 Bedside Glucose 125 138 Test 7/29/19 17:28 11/16/18 20:42 11/17/18 05:33 Bedside Glucose 212 125 White Blood Count 7.2 Red Blood Count 4.24 L Hemoglobin 10.9 L Hematocrit 35.7 L Mean Corpuscular 84.2 Volume Mean Corpuscular 25.7 L Hemoglobin Mean Corpuscular 30.5 L Hemoglobin Concent Red Cell 13.7 Distribution Width Platelet Count 253 Mean Platelet Volume 10.0 Immature 0.400 Granulocytes % Neutrophils % 65.1 Lymphocytes % 15.4 Monocytes % 18.0 H Eosinophils % 0.8 Basophils % 0.3 Nucleated Red Blood 0.0 Cells % Immature 0.030 Granulocytes # Neutrophils # 4.7 Lymphocytes # 1.1 Monocytes # 1.3 H Eosinophils # 0.1 Basophils # 0.0 Nucleated Red Blood 0.0 Cells # Sodium Level 141 Potassium Level 3.7 Chloride Level 108 Carbon Dioxide Level 26 Anion Gap 7 Blood Urea Nitrogen 41 H Creatinine 1.38 H Glucose Level 144 Calcium Level 9.9 Phosphorus Level 3.8 Magnesium Level 1.9 Albumin 3.7 Medications Medication Current Medications Aspirin (Halfprin) 81 mg DAILY PO Last administered on 11/16/18 08:32; Admin Dose 81 MG; Start 11/05/18 at 09:00 Atorvastatin Calcium (Lipitor) 40 mg QHS PO Last administered on 11/16/18 20:41; Admin Dose 40 MG; Start 11/04/18 at 21:00 Brimonidine Tartrate (Alphagan P 0.15%) 1 drop Q8 BOTH EYES Last administered on 11/17/18 06:42; Admin Dose 1 DROP; Start 11/04/18 at 22:00 Docusate Sodium (Colace) 100 mg BID PO Last administered on 11/16/18 20:41; Admin Dose 100 MG; Start 11/04/18 at 21:00 Famotidine (Pepcid) 20 mg BID PO Last administered on 11/16/18 20:41; Admin Dose 20 MG; Start 11/04/18 at 21:00 Isosorbide Mononitrate (Imdur) 30 mg DAILY PO Last administered on 11/16/18 08:31; Admin Dose 30 MG; Start 11/05/18 at 09:00 Latanoprost (Xalatan) 1 drop QHS BOTH EYES Last administered on 11/16/18 20:43; Admin Dose 1 DROP; Start 11/04/18 at 21:00 Timolol Maleate (Timoptic 0.25%) 1 drop BID BOTH EYES Last administered on 11/16/18 20:44; Admin Dose 1 DROP; Start 11/04/18 at 21:00 IV Flush (NS 3 ml) 3 ml PER PROTOCOL IV ; Start 11/04/18 at 18:30 Ondansetron HCl (Zofran Inj) 4 mg Q6H PRN IV NAUSEA/VOMITING; Start 11/04/18 at 18:30 Acetaminophen (Tylenol Tab) 650 mg Q6H PRN PO .PAIN 1-3 OR TEMP Last administered on 11/05/18 11:58; Admin Dose 650 MG; Start 11/04/18 at 18:30 Insulin Aspart (Novolog Insulin Pen) NOVOLOG *MILD* ALGORITHM WITH MEALS BEDTIME SC Last administered on 11/16/18 17:34; Admin Dose 2 UNIT; Start 11/04/18 at 21:00 Miscellaneous Information 1 ea NOTE XX ; Start 11/04/18 at 19:00 Glucose (Glutose) 15 gm Q15M PRN PO DECREASED GLUCOSE; Start 11/04/18 at 19:00 Glucose (Glutose) 22.5 gm Q15M PRN PO DECREASED GLUCOSE; Start 11/04/18 at 19:00 Dextrose (D50w Syringe) 25 ml Q15M PRN IV DECREASED GLUCOSE; Start 11/04/18 at 19:00 Dextrose (D50w Syringe) 50 ml Q15M PRN IV DECREASED GLUCOSE; Start 11/04/18 at 19:00 Glucagon (Glucagen) 1 mg Q15M PRN IM DECREASED GLUCOSE; Start 11/04/18 at 19:00 Glucose (Glutose) 15 gm Q15M PRN BUCCAL DECREASED GLUCOSE; Start 11/04/18 at 19:00 Amlodipine Besylate (Norvasc) 10 mg DAILY PO Last administered on 11/16/18 08:32; Admin Dose 10 MG; Start 11/05/18 at 00:00 Hydralazine HCl (Apresoline) 10 mg Q4H PRN IV sbp >160; Start 11/05/18 at 12:00 Metformin HCl (Glucophage) 500 mg BID WITH MEALS PO Last administered on 11/16/18 17:30; Admin Dose 500 MG; Start 11/05/18 at 18:00 Oxycodone HCl (Oxycontin) 10 mg TID PO Last administered on 11/16/18 20:42; Admin Dose 10 MG; Start 11/13/18 at 13:00 Trazodone HCl (Desyrel) 150 mg QHS PRN PO insomnia Last administered on 11/16/18 22:34; Admin Dose 150 MG; Start 11/15/18 at 12:00 Melatonin (Melatonin) 5 mg HS PO Last administered on 11/16/18at 20:41; Admin Dose 5 MG; Start 11/15/18 at 21:00 Prednisone (Prednisone) 30 mg DAILY PO ; Start 11/17/18 at 09:00 Hydromorphone HCl (Dilaudid) 1.5 mg Q4H PRN IV SEVERE PAIN LEVEL 7-10 Last administered on 11/16/18at 21:56; Admin Dose 1.5 MG; Start 11/16/18 at 12:00 Zolpidem Tartrate (Ambien) 5 mg HS MAY REPEAT X 1 PRN PO INSOMNIA; Start 11/16/18 at 12:00 YUSUF LOVE Nov 17, 2018 07:14
[2018-11-17] MEDS: HYDROmorphONE 2 MG/ML SYG IV PRN ×4 (07:39→21:00)
[2018-11-17] MEDS: INSULIN ASPART [NOVOLOG] 3 ML PEN SC SCH ×4 (07:55→20:07)
[2018-11-17 08:05] VITALS: BP 140/79; PULSE 73; RESP 19
[2018-11-17] MEDS ORDERED: predniSONE 10 MG TAB PO SCH (09:00)
[2018-11-17] MEDS: ASPIRIN (EC) 81 MG TAB PO SCH (09:06)
[2018-11-17] MEDS: metFORMIN 500 MG TAB PO SCH ×2 (09:06→17:06)
[2018-11-17] MEDS: oxyCODONE (CR) 10 MG TAB [oxyCONTIN] PO SCH ×3 (09:06→20:05)
[2018-11-17] MEDS: FAMOTIDINE 20 MG TAB PO SCH ×2 (09:07→20:05)
[2018-11-17] MEDS: AMLODIPINE 10 MG TAB PO SCH (09:07)
[2018-11-17] MEDS: DOCUSATE SODIUM 100 MG CAP PO SCH ×2 (09:07→20:05)
[2018-11-17] MEDS: ISOSORBIDE MONONITRATE(SR)30 MG TAB PO SCH (09:07)
[2018-11-17] MEDS: TIMOLOL 0.25% 5 ML OPH BOTH EYES SCH ×2 (09:07→20:06)
[2018-11-17] MEDS ORDERED: SOD CHLORIDE 0.9% 1,000 ML IV SCH (10:00)
--- NOTE | 2018-11-17 12:37 | PN ---
Date/Time of Note Date/Time of Note DATE: 11/17/18 TIME: 12:35 Objective Vitals Vital Signs Date Temp Pulse Resp B/P (MAP) Pulse Ox O2 O2 Flow FiO2 Time Delivery Rate 11/17/18 97.9 73 19 140/79 96 08:05 (99) 11/17/18 Room Air 02:40 Intake and Output 11/16/18 11/16/18 11/17/18 1515:00 23:00 07:00 IntakeIntake Total 490 ml 440 ml 240 ml OutputOutput Total 900 ml 350 ml 500 ml BalanceBalance -410 ml 90 ml -260 ml Results Result Diagram: 11/17/1833 11/17/1833 Medications Medications Current Medications Aspirin (Halfprin) 81 mg DAILY PO Last administered on 11/17/18 09:06; Admin Dose 81 MG; Start 11/05/18 at 09:00 Atorvastatin Calcium (Lipitor) 40 mg QHS PO Last administered on 11/16/18 20:41; Admin Dose 40 MG; Start 11/04/18 at 21:00 Brimonidine Tartrate (Alphagan P 0.15%) 1 drop Q8 BOTH EYES Last administered on 11/17/18 06:42; Admin Dose 1 DROP; Start 11/04/18 at 22:00 Docusate Sodium (Colace) 100 mg BID PO Last administered on 11/17/18 09:07; Admin Dose 100 MG; Start 11/04/18 at 21:00 Famotidine (Pepcid) 20 mg BID PO Last administered on 11/17/18 09:07; Admin Dose 20 MG; Start 11/04/18 at 21:00 Isosorbide Mononitrate (Imdur) 30 mg DAILY PO Last administered on 11/17/18 09:07; Admin Dose 30 MG; Start 11/05/18 at 09:00 Latanoprost (Xalatan) 1 drop QHS BOTH EYES Last administered on 11/16/18 20:43; Admin Dose 1 DROP; Start 11/04/18 at 21:00 Timolol Maleate (Timoptic 0.25%) 1 drop BID BOTH EYES Last administered on 11/17/18 09:07; Admin Dose 1 DROP; Start 11/04/18 at 21:00 IV Flush (NS 3 ml) 3 ml PER PROTOCOL IV ; Start 11/04/18 at 18:30 Ondansetron HCl (Zofran Inj) 4 mg Q6H PRN IV NAUSEA/VOMITING; Start 11/04/18 at 18:30 Acetaminophen (Tylenol Tab) 650 mg Q6H PRN PO .PAIN 1-3 OR TEMP Last administered on 11/05/18at 11:58; Admin Dose 650 MG; Start 11/04/18 at 18:30 Insulin Aspart (Novolog Insulin Pen) NOVOLOG *MILD* ALGORITHM WITH MEALS BEDTIME SC Last administered on 11/17/18at 11:50; Admin Dose 1 UNIT; Start 11/04/18 at 21:00 Miscellaneous Information 1 ea NOTE XX ; Start 11/04/18 at 19:00 Glucose (Glutose) 15 gm Q15M PRN PO DECREASED GLUCOSE; Start 11/04/18 at 19:00 Glucose (Glutose) 22.5 gm Q15M PRN PO DECREASED GLUCOSE; Start 11/04/18 at 19:00 Dextrose (D50w Syringe) 25 ml Q15M PRN IV DECREASED GLUCOSE; Start 11/04/18 at 19:00 Dextrose (D50w Syringe) 50 ml Q15M PRN IV DECREASED GLUCOSE; Start 11/04/18 at 19:00 Glucagon (Glucagen) 1 mg Q15M PRN IM DECREASED GLUCOSE; Start 11/04/18 at 19:00 Glucose (Glutose) 15 gm Q15M PRN BUCCAL DECREASED GLUCOSE; Start 11/04/18 at 19:00 Amlodipine Besylate (Norvasc) 10 mg DAILY PO Last administered on 11/17/18at 09:07; Admin Dose 10 MG; Start 11/05/18 at 00:00 Hydralazine HCl (Apresoline) 10 mg Q4H PRN IV sbp >160; Start 11/05/18 at 12:00 Metformin HCl (Glucophage) 500 mg BID WITH MEALS PO Last administered on 11/17/18at 09:06; Admin Dose 500 MG; Start 11/05/18 at 18:00 Oxycodone HCl (Oxycontin) 10 mg TID PO Last administered on 11/17/18at 09:06; Admin Dose 10 MG; Start 11/13/18 at 13:00 Trazodone HCl (Desyrel) 150 mg QHS PRN PO insomnia Last administered on 11/16/18 22:34; Admin Dose 150 MG; Start 11/15/18 at 12:00 Melatonin (Melatonin) 5 mg HS PO Last administered on 11/16/18at 20:41; Admin Dose 5 MG; Start 11/15/18 at 21:00 Prednisone (Prednisone) 30 mg DAILY PO Last administered on 11/17/18 09:06; Admin Dose 30 MG; Start 11/17/18 at 09:00 Hydromorphone HCl (Dilaudid) 1.5 mg Q4H PRN IV SEVERE PAIN LEVEL 7-10 Last administered on 11/17/18 11:34; Admin Dose 1.5 MG; Start 11/16/18 at 12:00 Zolpidem Tartrate (Ambien) 5 mg HS MAY REPEAT X 1 PRN PO INSOMNIA; Start 11/16/18 at 12:00 Sodium Chloride 1,000 ml @ 50 mls/hr Q20H IV Last administered on 11/17/18 11:29; Admin Dose 50 MLS/HR; Start 11/17/18 at 10:00; Stop 11/18/18 at 05:59 VTE Prophylaxis Risk score (from Ns)>0 risk: 2 SCD applied (from [facility]): No SCD contraindication: other Lines/Catheters IV Catheter Type: Merlos in Place: No Assessment/Plan Hospital Course Subjective Patient with no acute overnight events, still complaining of insomnia Objective Physical exam General: Patient is laying in bed and answers questions appropriately Mentation: Patient is alert and oriented 4, Head: Normocephalic atraumatic Eyes: EOMI, pupils reactive to light Neck: Supple, nontender, midline Respiratory: Clear to auscultation bilaterally Cardiovascular: regular rate, no obvious murmurs Gastrointestinal: non-tender to palpation, bowel sounds heard. Neurological: Moves all extremities spontaneously Skin: No new skin lesions Assessment/Plan 1. Severe lower back pain - MRI results with no noted OM. Discussed findings of stenosis and disc bulging with patient. He is refusing surgical intervention and discussed need for PT and supportive care - continue pain control per Pain management recommendations, will cont increased dose of dilaudid only while in house - has not been sleeping well either, trazodone and ambien as needed - originally, before MRI, CT L spine results noted and concern for ongoing osteomyelitis. Records from [facility] reviewed from August when he was initially diagnosed with OM. He was seen by surgeon who did not recommend any surgical intervention. He was discharged on vanco and rocephin for 6 weeks therapy. Patient does not remember if he was reexamined after completion of antibiotics - ID consultation appreciated , DC antibiotics now that MRI is negative 2. Acute syncope episode, resolved - No further episodes since admission. - Neurology consultation appreciate - Imaging results noted 3. Slurred speech, resolved - stroke work up completes and imaging studies negative for acute issues - Neurology input appreciated 4. LE swelling- improved - Ultrasound venous bilaterally negative for DVT 5. Chronic foot pain - Secondary to fall many years ago, same accident as his back pain 6. Acute kidney injury - fluid challenge, if it does not improve will consult nephrology, had previously resolved MIKE so doubt CKD. 7. Recent history of osteomyelitis - treated at [facility] 8. Hypertension - Continue home meds 9. Diabetes mellitus - A1c noted - will only continue metformin at time of discharge 10. Questionable coronary artery disease - Continue baby aspirin 11. Glaucoma - Continue home eye drops 12. Active hepatitis C - will need outpatient follow up 13. Chronic debility - Patient had a fall from a ladder a couple years ago which is the cause of his chronic back pain as well as chronic foot pain - Wheelchair-bound 14. Anemia - Mild, monitor for now 15. Disposition -likely SNF placement, hold DC for elevated Cr. AVELINO HINTON Nov 17, 2018 12:37
--- NOTE | 2018-11-17 13:31 | CONS ---
Assessment/Plan Assessment/Plan Hospital Course (Demo Recall) SUBJECTIVE: No acute events. Looks comfortable ANTIMICROBIALS: None back pain ALLERGIES: HE IS NOT ALLERGIC TO ANY ANTIBIOTICS. PHYSICAL EXAMINATION: GENERAL: This is well-developed, obese, elderly -Italian man who is alert, in no distress. HEENT: Head atraumatic, normocephalic. NECK: Supple. CHEST: Rise symmetrical. Breath sounds diminished to bases. HEART: S1, S2. ABDOMEN: Soft, bowel sounds present. ASSESSMENT: 1. Back pain 2. Status post syncopal episode. 3. Acute possibly on chronic kidney disease. 4. Diabetes. 5. Hypertension. PLAN: Remains stable, continue pain management Consultation Date/Type/Reason Admit Date/Time Nov 04, 2018 at 18:10 Initial Consult Date Type of Consult id Requesting Provider: AVELINO HINTON Date/Time of Note DATE: 11/17/18 TIME: 13:27 Exam/Review of Systems Exam Vitals Vital Signs Date Temp Pulse Resp B/P (MAP) Pulse Ox O2 O2 Flow FiO2 Time Delivery Rate 11/17/18 97.9 73 19 140/79 96 08:05 (99) 11/17/18 Room Air 02:40 Intake and Output 11/16/18 11/16/18 11/17/18 1515:00 23:00 07:00 IntakeIntake Total 490 ml 440 ml 240 ml OutputOutput Total 900 ml 350 ml 500 ml BalanceBalance -410 ml 90 ml -260 ml Results Result Diagram: 11/17/18 0533 11/17/18 0533 Results 24hrs Laboratory Tests Test 11/16/18 17:28 11/16/18 20:42 11/17/18 05:33 11/17/18 07:51 Bedside Glucose 212 125 127 White Blood Count 7.2 Red Blood Count 4.24 L Hemoglobin 10.9 L Hematocrit 35.7 L Mean Corpuscular 84.2 Volume Mean Corpuscular 25.7 L Hemoglobin Mean Corpuscular 30.5 L Hemoglobin Concent Red Cell 13.7 Distribution Width Platelet Count 253 Mean Platelet 10.0 Volume Immature 0.400 Granulocytes % Neutrophils % 65.1 Lymphocytes % 15.4 Monocytes % 18.0 H Eosinophils % 0.8 Basophils % 0.3 Nucleated Red 0.0 Blood Cells % Immature 0.030 Granulocytes # Neutrophils # 4.7 Lymphocytes # 1.1 Monocytes # 1.3 H Eosinophils # 0.1 Basophils # 0.0 Nucleated Red 0.0 Blood Cells # Sodium Level 141 Potassium Level 3.7 Chloride Level 108 Carbon Dioxide 26 Level Anion Gap 7 Blood Urea 41 H Nitrogen Creatinine 1.38 H Glucose Level 144 Calcium Level 9.9 Phosphorus Level 3.8 Magnesium Level 1.9 Albumin 3.7 Test 11/17/18 11:43 11/17/18 12:19 Bedside Glucose 146 Lab Scanned Report REFERENCE LAB Medications Medication Current Medications Aspirin (Halfprin) 81 mg DAILY PO Last administered on 11/17/18 09:06; Admin Dose 81 MG; Start 11/05/18 at 09:00 Atorvastatin Calcium (Lipitor) 40 mg QHS PO Last administered on 11/16/18 20:41; Admin Dose 40 MG; Start 11/04/18 at 21:00 Brimonidine Tartrate (Alphagan P 0.15%) 1 drop Q8 BOTH EYES Last administered on 11/17/18 13:23; Admin Dose 1 DROP; Start 11/04/18 at 22:00 Docusate Sodium (Colace) 100 mg BID PO Last administered on 11/17/18 09:07; Admin Dose 100 MG; Start 11/04/18 at 21:00 Famotidine (Pepcid) 20 mg BID PO Last administered on 11/17/18 09:07; Admin Dose 20 MG; Start 11/04/18 at 21:00 Isosorbide Mononitrate (Imdur) 30 mg DAILY PO Last administered on 11/17/18 09:07; Admin Dose 30 MG; Start 11/05/18 at 09:00 Latanoprost (Xalatan) 1 drop QHS BOTH EYES Last administered on 11/16/18 20:43; Admin Dose 1 DROP; Start 11/04/18 at 21:00 Timolol Maleate (Timoptic 0.25%) 1 drop BID BOTH EYES Last administered on 11/17/18 09:07; Admin Dose 1 DROP; Start 11/04/18 at 21:00 IV Flush (NS 3 ml) 3 ml PER PROTOCOL IV ; Start 11/04/18 at 18:30 Ondansetron HCl (Zofran Inj) 4 mg Q6H PRN IV NAUSEA/VOMITING; Start 11/04/18 at 18:30 Acetaminophen (Tylenol Tab) 650 mg Q6H PRN PO .PAIN 1-3 OR TEMP Last administered on 11/05/18 11:58; Admin Dose 650 MG; Start 11/04/18 at 18:30 Insulin Aspart (Novolog Insulin Pen) NOVOLOG *MILD* ALGORITHM WITH MEALS BEDTIME SC Last administered on 11/17/18 11:50; Admin Dose 1 UNIT; Start 11/04/18 at 21:00 Miscellaneous Information 1 ea NOTE XX ; Start 11/04/18 at 19:00 Glucose (Glutose) 15 gm Q15M PRN PO DECREASED GLUCOSE; Start 11/04/18 at 19:00 Glucose (Glutose) 22.5 gm Q15M PRN PO DECREASED GLUCOSE; Start 11/04/18 at 19:00 Dextrose (D50w Syringe) 25 ml Q15M PRN IV DECREASED GLUCOSE; Start 11/04/18 at 19:00 Dextrose (D50w Syringe) 50 ml Q15M PRN IV DECREASED GLUCOSE; Start 11/04/18 at 19:00 Glucagon (Glucagen) 1 mg Q15M PRN IM DECREASED GLUCOSE; Start 11/04/18 at 19:00 Glucose (Glutose) 15 gm Q15M PRN BUCCAL DECREASED GLUCOSE; Start 11/04/18 at 19:00 Amlodipine Besylate (Norvasc) 10 mg DAILY PO Last administered on 11/17/18 09:07; Admin Dose 10 MG; Start 11/05/18 at 00:00 Hydralazine HCl (Apresoline) 10 mg Q4H PRN IV sbp >160; Start 11/05/18 at 12:00 Metformin HCl (Glucophage) 500 mg BID WITH MEALS PO Last administered on 11/17/18 09:06; Admin Dose 500 MG; Start 11/05/18 at 18:00 Oxycodone HCl (Oxycontin) 10 mg TID PO Last administered on 11/17/18 13:22; Admin Dose 10 MG; Start 11/13/18 at 13:00 Trazodone HCl (Desyrel) 150 mg QHS PRN PO insomnia Last administered on 11/16/18 22:34; Admin Dose 150 MG; Start 11/15/18 at 12:00 Melatonin (Melatonin) 5 mg HS PO Last administered on 11/16/18 20:41; Admin Dose 5 MG; Start 11/15/18 at 21:00 Hydromorphone HCl (Dilaudid) 1.5 mg Q4H PRN IV SEVERE PAIN LEVEL 7-10 Last administered on 11/17/18at 11:34; Admin Dose 1.5 MG; Start 11/16/18 at 12:00 Zolpidem Tartrate (Ambien) 5 mg HS MAY REPEAT X 1 PRN PO INSOMNIA; Start 11/16/18 at 12:00 Sodium Chloride 1,000 ml @ 50 mls/hr Q20H IV Last administered on 11/17/18at 11:29; Admin Dose 50 MLS/HR; Start 11/17/18 at 10:00; Stop 11/18/18 at 05:59 Prednisone (Prednisone) 20 mg DAILY PO ; Start 11/18/18 at 09:00 ABRAM CASILLAS NP Nov 17, 2018 13:30
[2018-11-17 15:04] VITALS: BP 118/65; PULSE 91; RESP 17
[2018-11-17 15:14] VITALS: BP 123/60; PULSE 77
[2018-11-17 19:45] VITALS: BP 150/89; PULSE 92; RESP 16
[2018-11-17] MEDS: ATORVASTATIN 40 MG TAB PO SCH (20:05)
[2018-11-17] MEDS: MELATONIN 5 MG TABLET PO SCH (20:05)
[2018-11-17] MEDS: LATANOPROST 0.005% 2.5 ML OPH BOTH EYES SCH (20:07)
[2018-11-17] MEDS: traZODone 50 MG TAB PO PRN (21:01)
[2018-11-18 01:54] VITALS: BP 156/81; PULSE 80; RESP 18
[2018-11-18] MEDS: HYDROmorphONE 2 MG/ML SYG IV PRN ×4 (02:10→16:20)
[2018-11-18] MEDS: BRIMONIDINE 0.15% 5 ML OPH BOTH EYES SCH ×2 (05:43→14:46)
[2018-11-18] MEDS: INSULIN ASPART [NOVOLOG] 3 ML PEN SC SCH ×3 (08:00→16:23)
[2018-11-18 08:05] VITALS: BP 174/85; PULSE 91; RESP 19
[2018-11-18] MEDS: FAMOTIDINE 20 MG TAB PO SCH (08:57)
[2018-11-18] MEDS: metFORMIN 500 MG TAB PO SCH (08:57)
[2018-11-18] MEDS: TIMOLOL 0.25% 5 ML OPH BOTH EYES SCH (08:57)
[2018-11-18] MEDS: oxyCODONE (CR) 10 MG TAB [oxyCONTIN] PO SCH ×2 (08:58→13:23)
[2018-11-18] MEDS: AMLODIPINE 10 MG TAB PO SCH (08:58)
[2018-11-18] MEDS: ISOSORBIDE MONONITRATE(SR)30 MG TAB PO SCH (08:58)
[2018-11-18] MEDS: ASPIRIN (EC) 81 MG TAB PO SCH (08:58)
[2018-11-18] MEDS: DOCUSATE SODIUM 100 MG CAP PO SCH (08:58)
[2018-11-18] MEDS ORDERED: predniSONE 10 MG TAB PO SCH (09:00)
--- NOTE | 2018-11-18 09:14 | CONS ---
Assessment/Plan Assessment/Plan Assessment/Plan (Daily) Medical problems include history of stroke syndrome Left lower extremity swelling not improved Chronic kidney injury History of osteomyelitis History of hypertension Type 2 diabetes History of coronary heart disease Personality disorder Suggest continue current pain management but not to give pain med prescriptions when discharged unless pt going to SNF. Should get pain meds from PMD pain management MD when dc if going home. Suggest pt calling PMD for appointment G[facility]O after dc to obtain pain meds... high risk of abuse. Hold NSAID's secondary to CALLUM. Consultation Date/Type/Reason Admit Date/Time Nov 04, 2018 at 18:10 Initial Consult Date Requesting Provider: AVELINO HINTON Date/Time of Note DATE: 11/18/18 TIME: 09:08 Exam/Review of Systems Exam Vitals Vital Signs Date Temp Pulse Resp B/P (MAP) Pulse Ox O2 O2 Flow FiO2 Time Delivery Rate 11/18/18 98.0 91 19 174/85 99 08:05 (114) 11/17/18 Room Air 02:40 Intake and Output 11/17/18 11/17/18 11/18/18 1515:00 23:00 07:00 IntakeIntake Total 1040 ml 1130 ml 660 ml OutputOutput Total 1400 ml 700 ml 800 ml BalanceBalance -360 ml 430 ml -140 ml Results Result Diagram: 11/18/18 0539 11/18/18 0539 Results 24hrs Laboratory Tests Test 11/17/18 11:43 11/17/18 12:19 11/17/18 16:59 11/17/18 20:04 Bedside Glucose 146 177 117 Lab Scanned Report REFERENCE LAB Test 11/18/18 05:39 11/18/18 08:02 White Blood Count 7.0 Red Blood Count 4.31 L Hemoglobin 11.1 L Hematocrit 36.3 L Mean Corpuscular 84.2 Volume Mean Corpuscular 25.8 L Hemoglobin Mean Corpuscular 30.6 L Hemoglobin Concent Red Cell 13.6 Distribution Width Platelet Count 278 Mean Platelet 10.3 Volume Immature 0.400 Granulocytes % Neutrophils % 66.8 Lymphocytes % 16.2 Monocytes % 15.5 H Eosinophils % 1.0 Basophils % 0.1 Nucleated Red 0.0 Blood Cells % Immature 0.030 Granulocytes # Neutrophils # 4.7 Lymphocytes # 1.1 Monocytes # 1.1 H Eosinophils # 0.1 Basophils # 0.0 Nucleated Red 0.0 Blood Cells # Sodium Level 144 Potassium Level 3.9 Chloride Level 109 Carbon Dioxide 25 Level Anion Gap 10 Blood Urea 39 H Nitrogen Creatinine 1.20 Est Glomerular > 60 Filtrat Rate mL/min Glucose Level 154 Calcium Level 10.0 Phosphorus Level 3.7 Magnesium Level 1.9 Bedside Glucose 139 Medications Medication Current Medications Aspirin (Halfprin) 81 mg DAILY PO Last administered on 11/18/18 08:58; Admin Dose 81 MG; Start 11/05/18 at 09:00 Atorvastatin Calcium (Lipitor) 40 mg QHS PO Last administered on 11/17/18 20:05; Admin Dose 40 MG; Start 11/04/18 at 21:00 Brimonidine Tartrate (Alphagan P 0.15%) 1 drop Q8 BOTH EYES Last administered on 11/18/18 05:43; Admin Dose 1 DROP; Start 11/04/18 at 22:00 Docusate Sodium (Colace) 100 mg BID PO Last administered on 11/18/18 08:58; Admin Dose 100 MG; Start 11/04/18 at 21:00 Famotidine (Pepcid) 20 mg BID PO Last administered on 11/18/18 08:57; Admin Dose 20 MG; Start 11/04/18 at 21:00 Isosorbide Mononitrate (Imdur) 30 mg DAILY PO Last administered on 11/18/18 08:58; Admin Dose 30 MG; Start 11/05/18 at 09:00 Latanoprost (Xalatan) 1 drop QHS BOTH EYES Last administered on 11/17/18 20:07; Admin Dose 1 DROP; Start 11/04/18 at 21:00 Timolol Maleate (Timoptic 0.25%) 1 drop BID BOTH EYES Last administered on 11/18/18 08:57; Admin Dose 1 DROP; Start 11/04/18 at 21:00 IV Flush (NS 3 ml) 3 ml PER PROTOCOL IV ; Start 11/04/18 at 18:30 Ondansetron HCl (Zofran Inj) 4 mg Q6H PRN IV NAUSEA/VOMITING; Start 11/04/18 at 18:30 Acetaminophen (Tylenol Tab) 650 mg Q6H PRN PO .PAIN 1-3 OR TEMP Last administered on 11/05/18 11:58; Admin Dose 650 MG; Start 11/04/18 at 18:30 Insulin Aspart (Novolog Insulin Pen) NOVOLOG *MILD* ALGORITHM WITH MEALS BEDTIME SC Last administered on 11/17/18 17:05; Admin Dose 1 UNIT; Start 11/04/18 at 21:00 Miscellaneous Information 1 ea NOTE XX ; Start 11/04/18 at 19:00 Glucose (Glutose) 15 gm Q15M PRN PO DECREASED GLUCOSE; Start 11/04/18 at 19:00 Glucose (Glutose) 22.5 gm Q15M PRN PO DECREASED GLUCOSE; Start 11/04/18 at 19:00 Dextrose (D50w Syringe) 25 ml Q15M PRN IV DECREASED GLUCOSE; Start 11/04/18 at 19:00 Dextrose (D50w Syringe) 50 ml Q15M PRN IV DECREASED GLUCOSE; Start 11/04/18 at 19:00 Glucagon (Glucagen) 1 mg Q15M PRN IM DECREASED GLUCOSE; Start 11/04/18 at 19:00 Glucose (Glutose) 15 gm Q15M PRN BUCCAL DECREASED GLUCOSE; Start 11/04/18 at 19:00 Amlodipine Besylate (Norvasc) 10 mg DAILY PO Last administered on 11/18/18at 08:58; Admin Dose 10 MG; Start 11/05/18 at 00:00 Hydralazine HCl (Apresoline) 10 mg Q4H PRN IV sbp >160; Start 11/05/18 at 12:00 Metformin HCl (Glucophage) 500 mg BID WITH MEALS PO Last administered on 11/18/18 08:57; Admin Dose 500 MG; Start 11/05/18 at 18:00 Oxycodone HCl (Oxycontin) 10 mg TID PO Last administered on 11/18/18 08:58; Admin Dose 10 MG; Start 11/13/18 at 13:00 Trazodone HCl (Desyrel) 150 mg QHS PRN PO insomnia Last administered on 11/17/18 21:01; Admin Dose 150 MG; Start 11/15/18 at 12:00 Melatonin (Melatonin) 5 mg HS PO Last administered on 11/17/18at 20:05; Admin Dose 5 MG; Start 11/15/18 at 21:00 Hydromorphone HCl (Dilaudid) 1.5 mg Q4H PRN IV SEVERE PAIN LEVEL 7-10 Last administered on 11/18/18at 06:00; Admin Dose 1.5 MG; Start 11/16/18 at 12:00 Zolpidem Tartrate (Ambien) 5 mg HS MAY REPEAT X 1 PRN PO INSOMNIA Last ad ministered on 11/17/18at 22:07; Admin Dose 5 MG; Start 11/16/18 at 12:00 Prednisone (Prednisone) 20 mg DAILY PO Last administered on 11/18/18at 08:58; Admin Dose 20 MG; Start 11/18/18 at 09:00 YUSUF LOVE Nov 18, 2018 09:14
[2018-11-18] MEDS ORDERED: ZOLPIDEM 5 MG TAB PO PRN (09:30)
--- NOTE | 2018-11-18 12:51 | PDOCDIS ---
Discharge Instructions CONDITION [id number] Patient Condition: [id number] Stable FOLLOW UP/APPOINTMENTS Follow-up Plan 1. Please follow-up with your primary care provider as soon as possible. 2. Please follow-up with your pain management physician as soon as possible to take care of your chronic pain 3 please follow-up with orthopedic surgeon as soon as possible for your long- standing bilateral foot issues 4. Please stop taking glyburide and metformin at home a new prescription of a different metformin will be given to you at discharge AVELINO HINTON Nov 18, 2018 12:51
--- NOTE | 2018-11-18 12:58 | DS ---
Date/Time of Note Date/Time of Note DATE: 11/18/18 TIME: 12:57 Discharge Summary Admission/Discharge Info Admit Date/Time Nov 04, 2018 at 18:10 Discharge Date/Time Patient Condition: Stable Hospital Course Patient is a -[place] male with a past medical history significant for chronic back pain, recent osteomyelitis treated with antibiotics, chronic bilateral foot pain secondary to mechanical fall who presents to [facility] originally for acute syncopal episode. Patient had full syncope work-up including CVA rule out with MRI and neurology consult. Patient was cleared from a neurological standpoint, patient syncopal episode was likely due to hypoglycemia that had resolved before EMS could reach the patient as patient had a history of hypoglycemia induced syncope before. Patient was also on a sulfonylurea which he demonstrated throughout this admission that he does not need so diagnosis of hypoglycemic related syncopal episode is more probable. During this time patient also had questionable issues regarding his acute on chronic back pain, and a possible continuing osteomyelitis was worked up by infectious disease. Eventually MRI shows no signs of current osteomyelitis and infectious disease cleared him to be discharged without antibiotic. Patient does however seem to need increasing amounts of pain medication, however he states that he has not new to pain medication has used it for quite some time in the past. Of note patient does have active hepatitis C and knows to follow-up with the GI doctor. At this time due to patient's physical therapy status we recommended placement at a [place] [facility] facility at least temporarily before going back to assisted living facility however patient adamantly refused, patient is alert and oriented x4, patient states that he will take care of himself and assumes all responsibility. Patient will be sent home with home health physical therapy as well as a safety evaluation. Patient is wheelchair- bound and will also be provided with front wheel walker at discharge. Patient is to continue his home medications and will also be given a new medication for metformin and strict instructions to stop glipizide. 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 Patient will be discharged with a short tapering dose of Medrol Dosepak to decrease inflammation in his acute back pain likely caused by unfamiliar bed here in the hospital. Discharge diagnosis Severe lower back pain, acute on chronic Acute syncopal episode, resolved Slurred speech, resolved Lower extremity swelling, resolved Chronic foot pain Acute kidney injury, resolved Recent osteomyelitis, treated, resolved Hypertension Diabetes mellitus Glaucoma Active hepatitis C Chronic debility Anemia Home Meds Active Scripts Methylprednisolone* (Medrol* DOSE PACK) 4 Mg/Dose-Pack Tab.ds.pk, 4 MG PO . DIRECTED, #1 PACKET Prov:AVELINO HINTON 11/18/18 Metformin* (Glucophage*) 500 Mg Tab, 500 MG PO BID WITH MEALS for 30 Days, #60 TAB Prov:AVELINO HINTON 11/18/18 Reported Medications Cyclobenzaprine Hcl* (Cyclobenzaprine Hcl*) 10 Mg Tablet, 10 MG PO Q8, #60 TAB 11/04/18 Diphenhydramine Hcl (Banophen) 25 Mg Capsule, 25 MG PO DAILY, CAP 11/04/18 Atorvastatin* (Atorvastatin*) 40 Mg Tablet, 40 MG PO QHS, #30 TAB 11/04/18 Aspirin* (Aspirin* EC) 81 Mg Tablet.dr, 81 MG PO DAILY, TAB 11/04/18 Hydrocodone/Acetaminophen ([place] 10-325 Tablet) 1 Each Tablet, 1 EACH PO Q8H PRN for NEEDED, TAB 11/04/18 Brimonidine Tartrate* (Brimonidine Tartrate*) 0.15%-10ML Drop Opht, 1 DROP BOTH EYES Q8, #1 EA 11/04/18 Trazodone Hcl* (Desyrel*) 50 Mg Tab, 50 MG PO BID, #60 TAB 11/04/18 Metformin Hcl* (Metformin Hcl*) 1,000 Mg Tablet, 1000 MG PO WITH BREAKFAST DINNE, #60 TAB 11/04/18 Latanoprost (Latanoprost) 2.5 Ml Drops, 1 DROP BOTH EYES QHS, #1 BOTTLE 11/04/18 Isosorbide Mononitrate* (Isosorbide Mononitrate*) 30 Mg Tab.er.24h, 30 MG PO DAILY, TAB 11/04/18 Amlodipine Besylate* (Amlodipine Besylate*) 10 Mg Tablet, 10 MG PO DAILY, #30 TAB 11/04/18 Famotidine* (Famotidine*) 20 Mg Tablet, 20 MG PO BID, #60 TAB 11/04/18 Timolol Maleate* (Timolol Maleate* Ophth) 0.25%-15ml Opht, 1 DROP BOTH EYES BID, #1 EA 7/17/19 Docusate Sodium* (Colace*) 100 Mg Capsule, 100 MG PO BID, #60 CAP 11/04/18 Glyburide* (Glyburide*) 5 Mg Tablet, 5 MG PO BID, #60 TAB 11/04/18 Follow-up Plan 1. Please follow-up with your primary care provider as soon as possible. 2. Please follow-up with your pain management physician as soon as possible to take care of your chronic pain 3 please follow-up with orthopedic surgeon as soon as possible for your long- standing bilateral foot issues 4. Please stop taking glyburide and metformin at home a new prescription of a different metformin will be given to you at discharge Primary Care Provider Not On Staff Doctor Time spent on discharge: > 30 minutes Pending Labs Laboratory Tests Test 11/17/18 16:59 11/17/18 20:04 11/18/18 05:39 11/18/18 08:02 Bedside 177 117 139 Glucose mg/dL (70-220) mg/dL (70-220) mg/dL (70-220) White Blood 7.0 Count 10^3/ul (4.8-1 0.8) Red Blood 4.31 Count 10^6/ul (4.70- 6.10) Hemoglobin 11.1 g/dl (14.0-18. 0) Hematocrit 36.3 % (42.0-52.0) Mean 84.2 Corpuscular fl (82.0-101.0 Volume ) Mean 25.8 Corpuscular pg (29.0-33.0) Hemoglobin Mean 30.6 Corpuscular g/dl (32.0-37. Hemoglobin Conc 0) ent Red Cell 13.6 Distribution % (11.5-14.5) Width Platelet Count 278 10^3/UL (140-4 15) Mean Platelet 10.3 Volume fl (7.4-10.4) Immature 0.400 Granulocytes % % (0.001-0.429 ) Neutrophils % 66.8 % (39.0-77.0) Lymphocytes % 16.2 % (15.0-51.0) Monocytes % 15.5 % (0.0-11.0) Eosinophils % 1.0 % (0.0-7.0) Basophils % 0.1 % (0.0-2.0) Nucleated Red 0.0 Blood Cells % /100WBC (0.0-0 .0) Immature 0.030 Granulocytes # 10^3/ul (0.0-0 .031) Neutrophils # 4.7 10^3/ul (1.6-7 .5) Lymphocytes # 1.1 10^3/ul (0.8-2 .9) Monocytes # 1.1 10^3/ul (0.3-0 .9) Eosinophils # 0.1 10^3/ul (0.0-0 .5) Basophils # 0.0 10^3/ul (0.0-0 .1) Nucleated Red 0.0 Blood Cells # 10^3/ul (0.0-0 .0) Sodium Level 144 mmol/L (135-14 4) Potassium 3.9 Level mmol/L (3.5-5. 1) Chloride Level 109 mmol/L (97-110 ) Carbon Dioxide 25 Level mmol/L (21-31) Anion Gap 10 (5-13) Blood Urea 39 Nitrogen mg/dl (7-20) Creatinine 1.20 mg/dl (0.61-1. 24) Est Glomerular > 60 Filtrat mL/min (>60) Rate mL/min Glucose Level 154 mg/dl (70-220) Calcium Level 10.0 mg/dl (8.4-10. 2) Phosphorus 3.7 Level mg/dl (2.5-4.9 ) Magnesium 1.9 Level mg/dl (1.7-2.5 ) Test 11/18/18 12:14 Bedside 166 Glucose mg/dL (70-220) AVELINO HINTON Nov 18, 2018 12:58
[2018-11-18 14:54] VITALS: BP 132/75; PULSE 92; RESP 17
== END 2018-11-18 18:13 | disposition home health service (06) | DRG 638 ==
LOC: E/R 15:12 → 6WM 18:10 → 2NE 11-08 12:41
PROVIDERS: ADMIT Internal Medicine; ATTEND Internal Medicine
DX: E11.649 Type 2 diabetes mellitus with hypoglycemia without coma (principal); M86.9 Osteomyelitis, unspecified; R55 Syncope and collapse; N17.9 Acute kidney failure, unspecified; R56.9 Unspecified convulsions; E11.8 Type 2 diabetes mellitus with unspecified complications; M79.89 Other specified soft tissue disorders; I10 Essential (primary) hypertension; I25.10 Atherosclerotic heart disease of native coronary artery without angina pectoris; H40.9 Unspecified glaucoma; B19.20 Unspecified viral hepatitis C without hepatic coma; R53.81 Other malaise; D64.9 Anemia, unspecified; R47.81 Slurred speech; Z79.82 Long term (current) use of aspirin; I12.9 Hypertensive chronic kidney disease with stage 1 through stage 4 chronic kidney disease, or unspecified chronic kidney disease; E11.22 Type 2 diabetes mellitus with diabetic chronic kidney disease; N18.9 Chronic kidney disease, unspecified; M79.673 Pain in unspecified foot; G89.29 Other chronic pain; M54.9 Dorsalgia, unspecified; Z79.4 Long term (current) use of insulin
CPT/HCPCS: 36415; 70450; 70551; 71045; 72131; 72149; 73630; 73718; 80048; 80053; 80061; 80069; 80202; 80307; 81001; 82565; 82962; 83036; 83735; 84100; 84443; 84484; 84520; 85025; 86704; 86709; 86803; 87340; 87522; 93005; 93306; 93880; 93970; 95819; 97116; 97162; 97530; J0696; J1170; J1815; J1885; J1953; J2060; J3370; J3475; J7030; J7512